=== PATIENT | female | born 1975 | race Caucasian/White ===

== ENCOUNTER 2017-04-17 14:20 | Emergency (ER) | payer OTHER ==
[~2017-04-17] VITALS: Ht 172.7 cm; Wt 136.1 kg
[~2017-04-17 14:20] MED LIST: ABILIFY5 MG; ANTIVERT25 MG PO; AUGMENTIN 875-1 EACH PO; CEPHALEXIN500 MG PO; CIPRO500 MG PO; CLONIDINE HCL0.2 MG PO; CLONIDINE1 EAC2 TD; FIORINAL 50-321 EACH PO; IBUPROFEN600 MG PO; INDOMETHACIN50 MG PO; LEVAQUIN750 MG PO; MIRALAX17 GM PO; NORCO 5-325 TA1 EACH PO; OMEPRAZOLE20 MG PO; PHENTERMINE HCL30 MG PO; PROTONIX40 MG PO; ROBITUSSIN COU1 EACH PO; VERAPAMIL HCL120 MG PO; ZESTORETIC 20-251 EA PO
--- NOTE | 2017-04-17 22:36 | EKG ---
[facility] [address] [place] [address] Signed Normal sinus rhythm T wave abnormality, consider inferior ischemia Abnormal ECG When compared with ECG of 27-NOV-2016 15:00, Nonspecific T wave abnormality has replaced inverted T waves in Lateral leads Confirmed by ZACKERY MOREAU MD ([id number]) on 04/17/2017 10:36:40 PM Electronically Signed By: ZACKERY MOREAU MD 04/17/17 2236 PATIENT NAME: MONICA TUCKER Electrocardiogram DATE OF : 71 PHYSICIAN: ZACKERY MOREAU MD REPORT #: [id number] REPORT IS CONFIDENTIAL AND NOT TO BE RELEASED WITHOUT AUTHORIZATION
== END 2017-04-17 17:38 | disposition home or self-care (01) ==
LOC: ED 14:20
DX: R07.89 Other chest pain (principal); I10 Essential (primary) hypertension; E66.9 Obesity, unspecified; Z79.899 Other long term (current) drug therapy
CPT/HCPCS: 71020; 80053; 84484; 85025; 85610; 85730; 93005; 93010; 99284

== ENCOUNTER 2017-08-02 16:02 | Emergency (ER) | payer OTHER ==
[~2017-08-02] VITALS: Ht 172.7 cm; Wt 136.1 kg
[2017-08-02] MEDS ORDERED: METFORMIN HCL1000 MG PO (16:26)
[2017-08-02] MEDS ORDERED: LANTUS100 UNITS/ SUB-Q (16:27)
== END 2017-08-02 18:18 | disposition home or self-care (01) ==
LOC: ED 16:02
DX: R10.9 Unspecified abdominal pain (principal); R10.811 Right upper quadrant abdominal tenderness; R10.813 Right lower quadrant abdominal tenderness; I10 Essential (primary) hypertension; Z87.891 Personal history of nicotine dependence; Z79.899 Other long term (current) drug therapy; Z79.4 Long term (current) use of insulin
CPT/HCPCS: 80053; 81001; 83690; 85025; 96374; 96375; 99283; J1885; J2405; J7030

== ENCOUNTER 2017-08-29 11:59 | Emergency (ER) | payer OTHER ==
[~2017-08-29] VITALS: Ht 172.7 cm; Wt 140.2 kg
[~2017-08-29 11:59] MED LIST changes: +LANTUS100 UNITS/ SUB-Q; +METFORMIN HCL1000 MG PO
--- NOTE | 2017-08-29 15:12 | EKG ---
[facility] [address] [facility] [place] [address] Signed Normal sinus rhythm Nonspecific T wave abnormality Abnormal ECG When compared with ECG of 17-APR-2017 14:27, Nonspecific T wave abnormality, improved in Lateral leads Confirmed by JOSE E MCLEAN MD ([id number]) on 08/29/2017 3:12:09 PM Electronically Signed By: JOSE E MCLEAN MD 08/29/17 1512 PATIENT NAME: MONICA TUCKER Electrocardiogram DATE OF : [birth year] PHYSICIAN: JOSE E MCLEAN MD REPORT #: [id number] REPORT IS CONFIDENTIAL AND NOT TO BE RELEASED WITHOUT AUTHORIZATION
== END 2017-08-29 14:05 | disposition home or self-care (01) ==
LOC: ED 11:59
DX: R07.9 Chest pain, unspecified (principal); I10 Essential (primary) hypertension; I48.91 Unspecified atrial fibrillation; Z79.899 Other long term (current) drug therapy; Z79.84 Long term (current) use of oral hypoglycemic drugs; Z79.4 Long term (current) use of insulin
CPT/HCPCS: 80053; 84484; 85025; 93005; 93010; 99283

== ENCOUNTER 2019-02-17 22:00 | Emergency (ER) | payer OTHER ==
[~2019-02-17] VITALS: Ht 170.2 cm; Wt 111.1 kg
--- OUTSIDE RECORDS SUMMARY | ~2019-02-17 | XMS | Clinical Summary ---
Demographics + + + | Address | [address] | | | [place] [address] | + + + | Home Phone | | + + + | Preferred Language | Unknown | + + + | Marital Status | Single | + + + | Sikhism Affiliation | Unknown | + + + | Race | Unknown | + + + | Ethnic Group | Other Race | + + + Author + + + | Author | [facility] REVENUE LOC[facility] | + + + | Organization | NON REVENUE LOCATIONS | + + + | Address | Unknown | + + + | Phone | Unavailable | + + + Care Team Providers + +------+ + | Care Assembly Worker Name | Role | Phone | + +------+ + PP | Unavailable | + +------+ + Source Comments JEMMA is fully [facility] both [facility] and [facility] InPatient.[facility] Allergies No Known Allergies Medications + + + +---------+------+------+-------+ | Medication | Sig | Dispensed | Refills | Star | End | Statu | | | | | | t | Date | s | | | | | | Date | | | + + + +---------+------+------+-------+ | pioglitazone 15 mg | Take 1 tablet by | 30 | 1 | 04/0 | | Activ | | oral tablet | mouth once daily. | tablet | | 2/20 | | e | | | | | | 18 | | | + + + +---------+------+------+-------+ Active Problems Not on file Social History + +-------+ +--------+------+ | Tobacco Use | Types | Packs/Day | Years | Date | | | | | Used | | + +-------+ +--------+------+ | Never Assessed | | | | | + +-------+ +--------+------+ + + + | Sex Assigned at | Date Recorded | | | | + + + | Not on file | | + + + + + + + | Job Start Date | Occupation | Industry | + + + + | Not on file | Not on file | Not on file | + + + + + + + + | Travel History | Travel Start | Travel End | + + + + + + | No recent travel history available. | + + Plan of Treatment + + + + + | Health Maintenance | Due Date | Last Done | Comments | + + + + + | Influenza (Flu) | | | | | vaccination (Season | 9 | | | | Ended) | | | | + + + + + Results Not on filefrom Last 3 Months"
--- OUTSIDE RECORDS SUMMARY | ~2019-02-17 | XMS | Encounter Summary ---
Demographics + + + | Address | [address] | | | [place] [address] | + + + | Home Phone | | + + + | Preferred Language | Unknown | + + + | Marital Status | Unknown | + + + | Christianity Affiliation | Unknown | + + + | Race | Unknown | + + + | Ethnic Group | Unknown | + + + Author + + + | Author | [facility] | + + + | Organization | [facility] | + + + | Address | Unknown | + + + | Phone | Unavailable | + + + Support + + +---------+ + | Name | Relationship | Address | Phone | + + +---------+ + | Detailed,Message | ECON | Unknown | | + + +---------+ + Care Team Providers + +------+ + | Care Cafeteria Server Name | Role | Phone | + +------+ + | Jonah Villanueva DO | PCP | | + +------+ + Reason for Visit +--------+ + | Reason | Comments | +--------+ + | Other | Referral Notes & Testing from [facility] | +--------+ + Encounter Details +--------+ + + + + | Date | Type | Department | Care Team | Description | +--------+ + + + + | 02/12/ | Documentati | IVONNE Albrecht | Eyal, Kaitlin Ford MA | Other (Referral | | 2019 | on Only | [facility] | | Notes & Testing from | | | | [address] | | [facility]) | | | | [address] | | | | | | [place] [address] | | | | | | [phone] | | | +--------+ + + + + Social History + +-------+ +--------+ + | Tobacco Use | Types | Packs/Day | Years | Date | | | | | Used | | + +-------+ +--------+ + | Former Smoker | | 0.5 | 20 | Quit: 03/12/2015 | + +-------+ +--------+ + + + +---------+ + | Alcohol Use | Drinks/We | oz/Week | Comments | | | ek | | | + + +---------+ + | Yes | 1 | 0.6 | occ | | | Standard | | | | | drinks or | | | | | | | | | | equivalen | | | | | t | | | + + +---------+ + + + + | Sex Assigned at | Date Recorded | | | | + + + | Not on file | | + + + as of this encounter Plan of Treatment +--------+---------+ + + + | Date | Type | Specialty | Care Team | Description | +--------+---------+ + + + | 03/02/ | Office | Cardiology | Danae Deng | | | 2019 | Visit | | [address] | | | | | | [address] | | | | | | [place] [address] | | | | | | [phone] | | | | | | | | +--------+---------+ + + + as of this encounter Visit Diagnoses Not on filein this encounter"
--- OUTSIDE RECORDS SUMMARY | ~2019-02-17 | XMS | Clinical Summary ---
Demographics + + + | Address | [address] | | | [place] [address] | + + + | Home Phone | | + + + | Preferred Language | Unknown | + + + | Marital Status | Unknown | + + + | Bahai Affiliation | Unknown | + + + | Race | Unknown | + + + | Ethnic Group | Unknown | + + + Author + + + | Author | [facility] | + + + | Organization | [facility] | + + + | Address | Unknown | + + + | Phone | Unavailable | + + + Support + + +---------+ + | Name | Relationship | Address | Phone | + + +---------+ + | Detailed,Message | ECON | Unknown | | + + +---------+ + Care Team Providers + +------+ + | Care Enrichment Teacher Name | Role | Phone | + +------+ + | Jonah Villanueva DO | PP | | + +------+ + Allergies No Known Allergies Current Medications + + +-------+---------+------+------+-------+ | Prescription | Sig. | Disp. | Refills | Star | End | Statu | | | | | | t | Date | s | | | | | | Date | | | + + +-------+---------+------+------+-------+ | | Take 1 tablet by | | | | | Activ | | HYDROcodone-acetamin | mouth every 6 (six) | | | | | e | | ophen (NORCO) 5-325 | hours as needed for | | | | | | | MG per tablet | Pain. | | | | | | + + +-------+---------+------+------+-------+ | atorvastatin | Take 40 mg by mouth | | | | | Activ | | (LIPITOR) 40 MG | nightly. | | | | | e | | tablet | | | | | | | + + +-------+---------+------+------+-------+ | omeprazole | Take 40 mg by mouth | | | | | Activ | | (PRILOSEC) 40 MG | every morning before | | | | | e | | capsule | breakfast. | | | | | | + + +-------+---------+------+------+-------+ | | Take 1 tablet by | | | | | Activ | | lisinopril-hydrochlo | mouth daily. | | | | | e | | rothiazide | | | | | | | | (ZESTORETIC) 20-12.5 | | | | | | | | MG per tablet | | | | | | | + + +-------+---------+------+------+-------+ | pioglitazone | Take 15 mg by mouth | | | | | Activ | | (ACTOS) 15 MG tablet | daily. | | | | | e | + + +-------+---------+------+------+-------+ | verapamil (VERELAN | Take 240 mg by mouth | | | | | Activ | | PM) 240 MG 24 hr | nightly. | | | | | e | | capsule | | | | | | | + + +-------+---------+------+------+-------+ | metFORMIN | Take 1,000 mg by | | | | | Activ | | (GLUCOPHAGE) 500 MG | mouth daily with | | | | | e | | tablet | breakfast. | | | | | | + + +-------+---------+------+------+-------+ | aspirin 81 MG EC | Take 81 mg by mouth | | | | | Activ | | tablet | daily with | | | | | e | | | breakfast. | | | | | | + + +-------+---------+------+------+-------+ | Multiple | Take 1 tablet by | | | | | Activ | | Vitamins-Minerals | mouth daily. | | | | | e | | (MULTIVITAMIN WITH | | | | | | | | MINERALS) tablet | | | | | | | + + +-------+---------+------+------+-------+ | Cinnamon 500 MG | Take 500 mg by mouth | | | | | Activ | | capsule | daily. | | | | | e | + + +-------+---------+------+------+-------+ | insulin glargine | Inject 50 Units into | | | | | Activ | | (LANTUS) 100 UNIT/ML | the skin nightly. | | | | | e | | injection | | | | | | | + + +-------+---------+------+------+-------+ | cloNIDine | Place 1 patch onto | | | | | Activ | | (CATAPRES) 0.3 | the skin once a | | | | | e | | MG/24HR | week. | | | | | | + + +-------+---------+------+------+-------+ Active Problems + + + | Problem | Noted Date | + + + | Regular check-up | 03/12/2017 | + + + | Diabetes mellitus, type 2 | 12/29/2016 | + + + + + | Overview: Insulin requiring from the start | + + + +---+ | Hypertension | | + +---+ | Narcolepsy | | + +---+ | Morbid obesity (HCC) | | + +---+ | IBS (irritable bowel syndrome) | | + +---+ | Osteoarthritis, multiple sites | | + +---+ Encounters +--------+ + + + + | Date | Type | Specialty | Care Team | Description | +--------+ + + + + | 02/12/ | Documentati | | Kaitlin Birch MA | Other (Referral | | 2019 | on Only | | | Notes & Testing from | | | | | | [facility]) | +--------+ + + + + from Last 3 Months Family History + + +------+ + | Medical History | Relation | Name | Comments | + + +------+ + | Aneurysm | Father | | | + + +------+ + | Hypertension | Father | | | + + +------+ + | Stroke | Father | | several, starting in his 40s | + + +------+ + | Hypertension | Mother | | | + + +------+ + | Adrenal disorder | Son | | | + + +------+ + | Blindness | Son | | congenital | + + +------+ + | Mental retardation | Son | | | + + +------+ + | Seizures | Son | | | + + +------+ + | Asthma | Son | | | + + +------+ + + +------+ + + | Relation | Name | Status | Comments | + +------+ + + | Brother | | Alive | | + +------+ + + | Brother | | Alive | | + +------+ + + | Father | | | | | | | (Age | | | | | 66) | | + +------+ + + | Mother | | Alive | | + +------+ + + | Sister | | Alive | | + +------+ + + | Son | | Alive | | + +------+ + + | Son | | Alive | | + +------+ + + | Son | | Alive | | + +------+ + + Social History + +-------+ +--------+ [...] on file | | + + + Last Filed Vital Signs + + + + | Vital Sign | Reading | Time Taken | + + + + | Blood Pressure | 142/94 | 03/12/2017 3:12 PM PDT | + + + + | Pulse | 100 | 03/12/2017 3:08 PM PDT | + + + + | Temperature | - | - | + + + + | Respiratory Rate | - | - | + + + + | Oxygen Saturation | 94% | 03/12/2017 3:08 PM PDT | + + + + | Inhaled Oxygen | - | - | | Concentration | | | + + + + | Weight | 127 kg (280 lb) | 03/12/2017 3:08 PM PDT | + + + + | Height | 165.1 cm (5' 5") | 03/12/2017 3:08 PM PDT | + + + + | Body Mass Index | 46.59 | 03/12/2017 3:08 PM PDT | + + + + Plan of Treatment +--------+---------+ + + + | Date | Type | Specialty | Care Team | Description | +--------+---------+ + + + | 03/02/ | Office | | Danae Deng | | | 2019 | Visit | | [address] | | | | | | [address] | | | | | | [place] [address] | | | | | | [phone] | | | | | | | | +--------+---------+ + + + + + + + + | Health Maintenance | Due Date | Last Done | Comments | + + + + + | Diabetic Eye Exam | | | | | | 3 | | | + + + + + | Diabetic Foot Exam | | | | | | 3 | | | + + + + + | Hemoglobin A1c | | | | | | 3 | | | + + + + + | Microalbumin | | | | | Screening | 3 | | | + + + + + | Vaccine: | | | | | Dtap/Tdap/Td (1 - | 2 | | | | Tdap) | | | | + + + + + | Vaccine: | | | | | Pneumococcal 19-64 | 2 | | | | (PPSV23 only) Medium | | | | | Risk (1 of 1 - | | | | | PPSV23) | | | | + + + + + | Cervical Cancer | | | | | Screening (Pap) | 3 | | | + + + + + | Vaccine: Influenza | | | | | (Season Ended) | 9 | | | + + + + + Results Not on filefrom Last 3 Months Insurance + +--------+ +------+-------+---------+ | Payer | Benefi | Subscriber | Type | Phone | Address | | | t Plan | ID | | | | | | / | | | | | | | Group | | | | | + +--------+ +------+-------+---------+ | [facility] | PROVID | [id number] | PPO | | | | PLAN | ENCE | | | | | | | HEALTH | | | | | | | PLAN | | | | | + +--------+ +------+-------+---------+ + +--------+ +--------+ + + | Guarantor Name | Accoun | Relation to | Date | Phone | Billing Address | | | t Type | Patient | of | | | | | | | | | | + +--------+ +--------+ + + | MONICA DESAI | Person | Self [birth year] Home: | [address] | | | al/Fam | | 1975 | [phone] | [place] | | | [place] | | | [phone] | [phone] | + +--------+ +--------+ + +
--- OUTSIDE RECORDS SUMMARY | ~2019-02-17 | XMS | Clinical Summary ---
Demographics + + + | Address | [address] | | | [place] [address] | + + + | Home Phone | | + + + | Preferred Language | Unknown | + + + | Marital Status | Unknown | + + + | Mormon Affiliation | Unknown | + + + | Race | Unknown | + + + | Ethnic Group | Unknown | + + + Author + + + | Author | [facility] | + + + | Organization | [facility] | + + + | Address | Unknown | + + + | Phone | Unavailable | + + + Support + + +---------+ + | Name | Relationship | Address | Phone | + + +---------+ + | Detailed,Message | ECON | Unknown | | + + +---------+ + Care Team Providers + +------+ + | Care Culture Media Laboratory Assistant Name | Role | Phone | + [...] | | | | | [place] [address] | | | | | | [phone] | | | | | | | [...] | | | + +--------+ +------+-------+---------+ | [facility] | PROVID | [id number] | PPO | | | | PLAN [...] Self | [birth year] | Home: | [address] | | | al/Fam | | 1975 | [phone] | [place] | | | [place] | | | [phone] | [phone] | + +--------+ +--------+ + +
--- OUTSIDE RECORDS SUMMARY | ~2019-02-17 | XMS | Encounter Summary ---
Demographics + + + | Address | [address] | | | [place] [address] | + + + | Home Phone | | + + + | Preferred Language | Unknown | + + + | Marital Status | Single | + + + | Muslim Affiliation | Unknown | + + + | Race | Unknown | + + + | Ethnic Group | Other Race | + + + Author + + + | Author | [facility] | + + + | Organization | [facility] | + + + | Address | Unknown | + + + | Phone | Unavailable | + + + Care Team Providers + +------+ + | Care Team Psychologist Name | Role | Phone | + +------+ + PCP | Unavailable | + +------+ + Encounter Details +--------+ + + + + | Date | Type | Department | Care Team | Description | +--------+ + + + + | 07/08/ | Abstract | Digestive Health | Clinic, Surgery | | | 2017 | | [place] at [facility] [address] | | | | | | [address] | | | | | | Mailcode: [place] | | | | | | [facility] Health and | | | | | | [facility] [address] | | | | | | [place], [place] | | | | | | [address] | | | | | | [phone] | | | +--------+ + + + [...] recent travel history available. | + + documented as of this encounter Plan of Treatment Not on filedocumented as of this encounter Visit Diagnoses Not on filedocumented in this encounter"
--- OUTSIDE RECORDS SUMMARY | ~2019-02-17 | XMS | Clinical Summary ---
Demographics + + + | Address | [address] | | | [place] [address] | + + + | Home Phone | | + + + | Preferred Language | Unknown | + + + | Marital Status | Single | + + + | Pentecostal Affiliation | Unknown | + + + [...] Team Providers + +------+ + | Care Purchasing Assistant Name | Role | Phone | + +------+ + PP | Unavailable | + +------+ + Source Comments [facility] Allergies No Known Allergies Medications + + [...]
--- OUTSIDE RECORDS SUMMARY | ~2019-02-17 | XMS | Encounter Summary ---
Demographics + + + | Address | [address] | | | [place] [address] | + + + | Home Phone | | + + + | Preferred Language | Unknown | + + + | Marital Status | Single | + + + | Jewish Affiliation | Unknown | + + + | Race | Unknown | + + + | Ethnic Group | Other Race | + + + Author + + + | Author | [facility] | + + + | Organization | [facility] | + + + | Address | Unknown | + + + | Phone | Unavailable | + + + Care Team Providers + +------+ + | Care Casing Man Name | Role | Phone | + +------+ + PCP | Unavailable | + +------+ + Encounter Details +--------+ + + + + | Date | Type | Department | Care Team | Description | +--------+ + + + + | 12/30/ | Pharmacy | [facility] | | | | 2017 | Visit | Outpatient Pharmacy | | | | | | [address] | | | | | | [address] | | | | | | [place], [place] | | | | | | [address] | | | | | | [phone] | | | +--------+ + + + [...]
--- OUTSIDE RECORDS SUMMARY | ~2019-02-17 | XMS | Clinical Summary ---
Demographics + + + | Address | [address] | | | [place] [address] | + + + | Home Phone | | + + + | Preferred Language | Unknown | + + + | Marital Status | Single | + + + | Sikh Affiliation | Unknown | + + + | Race | Unknown | + + + | Ethnic Group | Unknown | + + + Author + + + | Author | [facility] | | | and [place] | + + + | Organization | [facility] | | | and [place] | + + + | Address | Unknown | + + + | Phone | Unavailable | + + + Support + + +---------+ + | Name | Relationship | Address | Phone | + + +---------+ + | RYNE TUCKER | ECON | Unknown | | + + +---------+ + | Detailed,Message | ECON | Unknown | | + + +---------+ + Care Team Providers + +------+ + | Care Media Traffic Manager Name | Role | Phone | + +------+ + PP | Unavailable | + +------+ + Allergies Not on File Medications Not on file Active Problems Not on file Social History [...]
--- OUTSIDE RECORDS SUMMARY | ~2019-02-17 | XMS | Encounter Summary ---
Demographics + + + | Address | [address] | | | [place] [address] | + + + | Home Phone | | + + + | Preferred Language | Unknown | + + + | Marital Status | Single | + + + | Mu-Ism Affiliation | Unknown | + + + | Race | Unknown | + + + | Ethnic Group | Other Race | + + + Author + + + | Author | [facility] | + + + | Organization | [facility] | + + + | Address | Unknown | + + + | Phone | Unavailable | + + + Care Team Providers + +------+ + | Care Senior Software Manager Name | Role | Phone | [...] [address] | | | | | | [place], [place] | | | | | | [address] | | | | | | [phone] | | | +--------+ + + + [...]
--- OUTSIDE RECORDS SUMMARY | ~2019-02-17 | XMS | Encounter Summary ---
Demographics + + + | Address | [address] | | | [place] [address] | + + + | Home Phone | | + + + | Preferred Language | Unknown | + + + | Marital Status | Unknown | + + + | Religion Affiliation | Unknown | + + + | Race | Unknown | + + + | Ethnic Group | Unknown | + + + Author + + + | Author | [facility] | + + + | Organization | [facility] | + + + | Address | Unknown | + + + | Phone | Unavailable | + + + Support + + +---------+ + | Name | Relationship | Address | Phone | + + +---------+ + | Detailed,Message | ECON | Unknown | | + + +---------+ + Care Team Providers + +------+ + | Care Building Cleaner Name | Role | Phone | + [...] | 2019 | on Only | [facility] [place] | | Notes & Testing from | | | | [address] | | Vera Foote) | | | | [address] | | | | | | [place] [address] | | | | | | [phone] | | | +--------+ + + + [...] | | | | | [place] [address] | | | | | | [phone] | | | | | | | | +--------+---------+ + + + as of this encounter Visit Diagnoses Not on filein this encounter"
--- OUTSIDE RECORDS SUMMARY | ~2019-02-17 | XMS | Encounter Summary ---
Demographics + + + | Address | [address] | | | [place] [address] | + + + | Home Phone | | + + + | Preferred Language | Unknown | + + + | Marital Status | Single | + + + | Anabaptist Affiliation | Unknown | + + + | Race | Unknown | + + + | Ethnic Group | Other Race | + + + Author + + + | Author | [facility] | + + + | Organization | [facility] | + + + | Address | Unknown | + + + | Phone | Unavailable | + + + Care Team Providers + +------+ + | Care Meat Team Member Name | Role | Phone | + +------+ + PCP | Unavailable | + +------+ + Encounter Details +--------+ + + + + | Date | Type | Department | Care Team | Description | +--------+ + + + + | 07/08/ | Abstract | Digestive Health | Clinic, Surgery | | | 2017 | | [place] at [facility] [address] | | | | | | [address] | | | | | | Mailcode: [place] | | | | | | [facility] Health and | | | | | | [facility], [facility] [address] | | | | | | [place], [place] | | | | | | [address] | | | | | | [phone] | | | +--------+ + + + [...]
--- OUTSIDE RECORDS SUMMARY | ~2019-02-17 | XMS | Clinical Summary ---
Demographics + + + | Address | [address] | | | [place] [address] | + + + | Home Phone | | + + + | Preferred Language | Unknown | + + + | Marital Status | Single | + + + | Buddhist Affiliation | Unknown | + + + | Race | Unknown | + + + | Ethnic Group | Unknown | + + + Author + + + | Author | [facility] | | | and [place] | + + + | Organization | [facility] | | | and [place] | [...] Team Providers + +------+ + | Care Feather Stitcher Name | Role | Phone | + [...]
[2019-02-17] MEDS ORDERED: ATORVASTATIN CA40 MG PO (22:15)
[2019-02-17] MEDS ORDERED: VICTOZA 3-0.6 MG/0.1 SUB-Q (22:16)
--- NOTE | 2019-02-18 16:52 | EKG ---
[facility] [address] [place] [address] Signed Normal sinus rhythm Moderate voltage criteria for LVH, may be normal variant Nonspecific T wave abnormality Abnormal ECG When compared with ECG of 29-AUG-2017 12:10, Nonspecific T wave abnormality now evident in Anterior leads Confirmed by JOSE E MCLEAN MD ([id number]) on 02/18/2019 4:52:31 PM Electronically Signed By: JOSE E MCLEAN MD 02/18/19 1652 PATIENT NAME: MONICA TUCKER Electrocardiogram DATE OF : 71 PHYSICIAN: JOSE E MCLEAN MD REPORT #: [id number] REPORT IS CONFIDENTIAL AND NOT TO BE RELEASED WITHOUT AUTHORIZATION
== END 2019-02-18 00:12 | disposition home or self-care (01) ==
LOC: ED 22:00
DX: R42 Dizziness and giddiness (principal); I10 Essential (primary) hypertension; E66.9 Obesity, unspecified; E11.9 Type 2 diabetes mellitus without complications; Z79.84 Long term (current) use of oral hypoglycemic drugs; Z79.899 Other long term (current) drug therapy
CPT/HCPCS: 80053; 83735; 84443; 84484; 85025; 93005; 93010; 96360; 99284-25; J7030

== ENCOUNTER 2020-05-30 23:06 | Emergency (ER) | payer OTHER ==
[~2020-05-30] VITALS: Ht 170.2 cm; Wt 127.0 kg
--- OUTSIDE RECORDS SUMMARY | ~2020-05-30 | XMS | Encounter Summary ---
Demographics + + + | Address | [address] | | | [place] [address] | + + + | Home Phone | | + + + | Preferred Language | Unknown | + + + | Marital Status | Single | + + + | Synagogue Affiliation | Unknown | + + + | Race | Unknown | + + + | Ethnic Group | Other Race | + + + Author + + + | Author | [facility] | + + + | Organization | [facility] | + + + | Address | Unknown | + + + | Phone | Unavailable | + + + Care Team Providers + +------+ + | Care Tax Record Clerk Name | Role | Phone | + +------+ + PCP | Unavailable | + +------+ + Encounter Details +--------+ + + + + | Date | Type | Department | Care Team | Description | +--------+ + + + + | 07/08/ | Abstract | Digestive Health | Clinic, Surgery | | | 2017 | | [place] [address] [address] | | | | | | [facility] | | | | | | for Health and | | | | | | Healing, [address] | | | | | | [place], [place] | | | | | | [address] | | | | | | [phone] | | | +--------+ + + + + Social History + +-------+ +--------+------+ | Tobacco [...] on file | | + + + documented as of this encounter Plan of Treatment Not on filedocumented as of this encounter Visit Diagnoses Not on filedocumented in this encounter"
--- OUTSIDE RECORDS SUMMARY | ~2020-05-30 | XMS | Encounter Summary ---
Demographics + + + | Address | [address] | | | [place] [address] | + + + | Home Phone | | + + + | Preferred Language | Unknown | + + + | Marital Status | Single | + + + | Latter Day Affiliation | Unknown | + + + | Race | Unknown | + + + | Ethnic Group | Other Race | + + + Author + + + | Author | [facility] | + + + | Organization | [facility] | + + + | Address | Unknown | + + + | Phone | Unavailable | + + + Care Team Providers + +------+ + | Care College Scouting Coordinator Name | Role | Phone | + +------+ + PCP | Unavailable | + +------+ + Encounter Details +--------+ + + + + | Date | Type | Department | Care Team | Description | +--------+ + + + + | 12/30/ | Pharmacy | [facility] | | | | 2017 | Visit | Outpatient Pharmacy | | | | | | [address] | | | | | | [place], [place] | | | | | | [address] | | | | | | [phone] | | | +--------+ + + + [...]
--- OUTSIDE RECORDS SUMMARY | ~2020-05-30 | XMS | Encounter Summary ---
Demographics + + + | Address | [address] | | | [place] [address] | + + + | Home Phone | | + + + | Preferred Language | Unknown | + + + | Marital Status | Single | + + + | Confucianism Affiliation | Unknown | + + + | Race | White | + + + | Ethnic Group | Not or | + + + Author + + + | Author | [facility] | | | and [place] | + + + | Organization | [facility] | | | and [place] | + + + | Address | Unknown | + + + | Phone | Unavailable | + + + Support + + +---------+ + | Name | Relationship | Address | Phone | + + +---------+ + | Lauren Desai | ECON | Unknown | | + + +---------+ + | No None | ECON | Unknown | | + + +---------+ + Care Team Providers + +------+ + | Care Dental Hygienist Name | Role | Phone | + +------+ + | Vera Foote | PCP | | + +------+ + Reason for Visit + + + | Reason | Comments | + + + | Medication Refill | | + + + Encounter Details +--------+--------+ + + + | Date | Type | Department | Care Team | Description | +--------+--------+ + + + | 05/12/ | Refill | [facility] | Danae Deng | Medication Refill | | 2020 | | CARDIOLOGY [place] | [address] | | | | | [address] [facility] | [address] | | | | | [address] | [place] [address] | | | | | [place] | [phone] | | | | | [address] | | | | | | [phone] | | | +--------+--------+ + + + Social History + +-------+ +--------+------+ | Tobacco Use | Types | Packs/Day | Years | Date | | | | | Used | | + +-------+ +--------+------+ | Former Smoker | | 0.5 | | | + +-------+ +--------+------+ + + + | Sex Assigned at | Date Recorded | | | | + + + | Not on file | | + + + documented as of this encounter Plan of Treatment Not on filedocumented as of this encounter Visit Diagnoses Not on filedocumented in this encounter"
--- OUTSIDE RECORDS SUMMARY | ~2020-05-30 | XMS | Encounter Summary ---
Demographics + + + | Address | [address] | | | [place] [address] | + + + | Home Phone | | + + + | Preferred Language | Unknown | + + + | Marital Status | Single | + + + | Mandaen Affiliation | Unknown | + + + | Race | White | + + + | Ethnic Group | Not or | + + + Author + + + | Author | [facility] | | | and [place] | + + + | Organization | [facility] | | | and [...] Team Providers + +------+ + | Care Window Machine Operator Name | Role | Phone | + +------+ + | Vera Foote | PCP | | + +------+ + Encounter Details +--------+ + + + + | Date | Type | Department | Care Team | Description | +--------+ + + + + | 05/07/ | Orders Only | [facility] | Danae Deng | Mixed | | 2019 | | CARDIOLOGY [place] | [address] | hyperlipidemia; | | | | [address] | [address] | Essential (primary) | | | | [address] | [place] [address] | hypertension; Type 2 | | | | [place] | [phone] | diabetes mellitus | | | | [address] | | without | | | | [phone] | | complications (HCC) | +--------+ + + + + Social [...] as of this encounter Plan of Treatment + +------+--------+ + + | Name | Type | Priori | Associated Diagnoses | Order Schedule | | | | ty | | | + +------+--------+ + + | Comprehensive | Lab | Routin | Mixed | Expected: | | Metabolic Panel | | e | hyperlipidemia | 03/02/2019, Expires: | | | | | Essential (primary) | 03/02/2020 | | | | | hypertension Type 2 | | | | | | diabetes mellitus | | | | | | without | | | | | | complications (HCC) | | + +------+--------+ + + | Lipid Panel | Lab | Routin | Mixed | Expected: | | | | e | hyperlipidemia Type | 03/02/2019, Expires: | | | | | 2 diabetes mellitus | 03/02/2020 | | | | | without | | | | | | complications (HCC) | | + +------+--------+ + + documented as of this encounter Visit Diagnoses + + | Diagnosis | + + | Mixed hyperlipidemia | + + | Essential (primary) hypertension Unspecified essential hypertension | + + | Type 2 diabetes mellitus without complications (HCC) Type II or unspecified type | | diabetes mellitus without mention of complication, not stated as uncontrolled | + + documented in this encounter"
--- OUTSIDE RECORDS SUMMARY | ~2020-05-30 | XMS | Clinical Summary ---
Demographics + + + | Address | [address] | | | [place] [address] | + + + | Home Phone | | + + + | Preferred Language | Unknown | + + + | Marital Status | Single | + + + | Samaritan Affiliation | Unknown | + + + [...] Team Providers + +------+ + | Care Risk Control Officer Name | Role | Phone | + +------+ + PCP | Unavailable | + +------+ + Source Comments [facility]EM[facility] is fully live [facility] and [facility] InPatient.[facility] Allergies No Known Allergies Medications + + [...] + + + Last Filed Vital Signs Not on file Plan of Treatment + + +-------+ + | Health Maintenance | Due Date | Last | Comments | | | | Done | | + + +-------+ + | Influenza (Flu) | | | | | vaccination (#1) | 9 | | | + + +-------+ + | Pneumococcal | Aged Out | | No longer eligible based on patient's age | | vaccination | | | to complete this topic | + + +-------+ + Results Not on filefrom Last 3 Months"
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
--- OUTSIDE RECORDS SUMMARY | ~2020-05-30 | XMS | Encounter Summary ---
Demographics + + + | Address | [address] | | | [place] [address] | + + + | Home Phone | | + + + | Preferred Language | Unknown | + + + | Marital Status | Single | + + + | Uatsdin Affiliation | Unknown | + + + | Race | White | + + + | Ethnic Group | Not or | + + + Author + + + | Author | [facility] | | | and [place] | + + + | Organization | [facility] | | | [...] Team Providers + +------+ + | Care Cafe Manager Name | Role | Phone | + +------+ + | Vera Foote | PCP | | + +------+ + Encounter Details +--------+ + + + + | Date | Type | Department | Care Team | Description | +--------+ + + + + | 03/02/ | Orders Only | [facility] | Conversion | | | 2019 | | CONVERSION [address]P [address] | Transaction, | | | | | [address] | Provider Unknown | | | | | [place], [place] | [phone] | | | | | [address] | | | | | | [phone] | | | +--------+ + + + [...]
--- OUTSIDE RECORDS SUMMARY | ~2020-05-30 | XMS | Encounter Summary ---
Demographics + + + | Address | [address] | | | [place] [address] | + + + | Home Phone | | + + + | Preferred Language | Unknown | + + + | Marital Status | Single | + + + | Rastafari Affiliation | Unknown | + + + | Race | White | + + + | Ethnic Group | Not or | + + + Author + + + | Author | [facility] | | | and [place] | + + + | Organization | [facility] | | | and [...] Team Providers + +------+ + | Care Public Health Educator Name | Role | Phone | + +------+ + | Vera Foote | PCP | | + +------+ + Encounter Details +--------+ + + + + | Date | Type | Department | Care Team | Description | +--------+ + + + + | 03/12/ | Orders Only | [facility] | Conversion | | | 2017 | | CONVERSION [address] | Transaction, | | | | | [address] | Provider Unknown | | | | | [place], [place] | [phone] | | | | | [address] | | | | | | [phone] | | | +--------+ + + + [...]
--- OUTSIDE RECORDS SUMMARY | ~2020-05-30 | XMS | Encounter Summary ---
Demographics + + + | Address | [address] | | | [place] [address] | + + + | Home Phone | | + + + | Preferred Language | Unknown | + + + | Marital Status | Single | + + + | Church Affiliation | Unknown | + + + | Race | White | + + + | Ethnic Group | Not or | + + + Author + + + | Author | [facility] | | | and [place] | + + + | Organization | [facility] | | | and [...] Team Providers + +------+ + | Care Production Coordinator Name | Role | Phone | + +------+ + | Vera Foote | PCP | | + +------+ + Encounter Details +--------+ + + + + | Date | Type | Department | Care Team | Description | +--------+ + + + + | 04/17/ | Orders Only | [facility] | Joceline Galindo, | | | 2016 | | [address] | MD [address] | | | | | [address] | [place], | | | | | [place], [place] | [place] [address] | | | | | [address] | [phone] | | | | | [phone] | | | +--------+ + + + [...] Not on filedocumented as of this encounter Procedures + +--------+ + + + | Procedure Name | Priori | Date/Time | Associated Diagnosis | Comments | | | ty | | | | + +--------+ + + + | ECHO INTERPRETATION | Routin | 04/17/2017 | | Results for this | | OF OUTSIDE FILMS | e | 2:28 PM | | procedure are in the | | | | PDT | | results section. | + +--------+ + + + documented in this encounter Results ECHO Interpretation of Outside Films (04/17/2017 2:28 PM PDT) + + | Specimen | + + | | + + + + + | Impressions | Performed At | + + + | 1. This was a technically difficult, but interpretable, study with | | | suboptimal parasternal views. 2. Left ventricular systolic function | | | is hyperdynamic with an estimated EF of >70%. 3. The diastolic | | | filling pattern indicates impaired relaxation consistent with mild | | | dysfunction (Grade I). 4. The right ventricle is normal in size and | | | function. 5. The ascending aorta is mildly dilated (aneurysmal), | | | measuring 4.3cm. 6. No significant valvular abnormalities are noted. | | + + + + + + | Narrative | Performed At | + + + | Patient Name: Vickie Desai Date of : 1975 | | | Performing Physician: JOCELINE GALINDO MD | | | | | | INDICATIONS SOB CONCLUSIONS 1. This | | | was a technically difficult, but interpretable, study with suboptimal | | | parasternal views. 2. Left ventricular systolic function is | | | hyperdynamic with an estimated EF of >70%. 3. The diastolic filling | | | pattern indicates impaired relaxation consistent with mild dysfunction | | | (Grade I). 4. The right ventricle is normal in size and function. | | | 5. The ascending aorta is mildly dilated (aneurysmal), measuring | | | 4.3cm. 6. No significant valvular abnormalities are noted. | | | FINDINGS -------- ECG rhythm: Sinus rhythm. Study: A 2-dimensional | | | transthoracic echocardiogram with m-mode, spectral and color flow | | | Doppler was perfomed at [facility]. Study: This was a | | | technically difficult study with suboptimal parasternal views. Left | | | Ventricle: Left ventricular systolic function is hyperdynamic with an | | | estimated EF of >70%. Left Ventricle: The left ventricle cavity size | | | is normal. Left Ventricle: Left ventricular wall thickness is normal. | | | Left Ventricle: Mild asymmetric septal hypertrophy with septal | | | thickness 13 - 15 mm. Left Ventricle: The diastolic filling pattern | | | indicates impaired relaxation consistent with mild dysfunction (Grade | | | I). Right Ventricle: The right ventricle is normal in size and | | | function. Left Atrium: The left atrium is normal in size. Right | | | Atrium: The right atrium is normal in size. Aortic Valve: The aortic | | | valve is not well visualized, but on limited views appears to be | | | trileaflet and structurally normal. Aortic Valve: The aortic | | | commissures have mild focal calcifications. Aortic Valve: There is no | | | evidence of aortic stenosis or regurgitation. Mitral Valve: Normal | | | appearing mitral valve. Mitral Valve: There is trace mitral | | | regurgitation. Tricuspid Valve: The tricuspid valve appears | | | structurally normal. Tricuspid Valve: Trace tricuspid regurgitation | | | present. Tricuspid Valve: Pulmonary artery systolic pressure could | | | not be assessed due to the absence of adequate TR jet. Pulmonic | | | Valve: Pulmonic valve appears structurally normal. Pericardium: There | | | is no pericardial effusion. IVC/Hepatic Veins: The IVC was not well | | | visualized. Aorta: The ascending aorta is mildly dilated, measuring | | | 4.3cm. Mass: No mass visualized Thrombus: No clot visualized | | | Thrombus: No vegetation visualized. Septum: No ASD observed. Septum: | | | No VSD observed. MEASUREMENTS RA Area: 15.40 | | | cm2 Ao asc: 4.28 cm EDV(Teich): 142.84 ml IVSd: 1.35 cm | | | LVIDd: 5.42 cm LVPWd: 1.08 cm LVOT Area: 3.32 cm2 LVOT | | | Diam: 2.05 cm %FS: 15.78 % EF(Teich): 32.93 % ESV(Teich): | | | 95.79 ml LVIDs: 4.56 cm SV(Teich): 47.04 ml RVIDd: 2.46 | | | cm LVEF MOD A2C: 67.36 % SV MOD A2C: 67.68 ml LVEF MOD A4C: | | | 73.20 % SV MOD A4C: 91.34 ml EF Biplane: 71.32 % LVEDV MOD | | | BP: 115.71 ml LVESV MOD BP: 33.18 ml LVEDV MOD A2C: 100.47 | | | ml LVLd A2C: 7.96 cm LVEDV MOD A4C: 124.77 ml LVLd A4C: | | | 8.52 cm LVESV MOD A2C: 32.78 ml LVLs A2C: 6.69 cm LVESV MOD | | | A4C: 33.43 ml LVLs A4C: 6.86 cm LAESV(A-L): 56.51 ml LAESV | | | Index (A-L): 23.74 ml/m2 LAAs A2C: 17.46 cm2 LAESV A-L A2C: | | | 47.96 ml LALs A2C: 5.39 cm LAAs A4C: 20.57 cm2 LAESV A-L | | | A4C: 64.94 ml LALs A4C: 5.53 cm AV maxP.85 mmHg AV | | | meanP.33 mmHg AV Vmax: 2.39 m/s AV Vmean: 1.62 m/s AV | | | VTI: 38.34 cm MARY KAY Vmax: 1.89 cm2 MARY KAY (VTI): 2.15 cm2 AVAI | | | (Vmax): 0.00 cm2/m2 AVAI (VTI): 0.00 cm2/m2 LVOT maxPG: | | | 7.40 mmHg LVOT meanP.82 mmHg LVSI Dopp: 34.72 ml/m2 LVSV | | | Dopp: 82.64 ml LVOT Vmax: 1.36 m/s LVOT Vmean: 1.03 m/s | | | LVOT VTI: 24.85 cm MV A Palomo: 0.81 m/s MV DecT: 248.39 ms | | | MV E Palomo: 0.89 m/s MV E/A Ratio: 1.09 MV PHT: 72.03 ms MVA | | | By PHT: 3.05 cm2 Septal e': 0.05 m/s Septal E/e': 16.09 | | | Lateral e': 0.12 m/s Lateral E/e': 7.25 PV maxP.67 mmHg | | | PV Vmax: 1.29 m/s Mineral Surveyor: MARIZOL Authenticated by: | | | JOCELINE GALINDO MD Report Date/Time: 04-18-2017 09:18:59 | | + + + + + | Procedure Note | + + | Prabhakar Roy Conversion - 05/21/2019 8:04 PM PDT Patient Name: Florin Desai of | | : 1975 Performing Physician: JOCELINE GALINDO, | | MD INDICATIONS S | | OB CONCLUSIONS 1. This was a technically difficult, but interpretable, study | | with suboptimal parasternal views.2. Left ventricular systolic function is hyperdynamic | | with an estimated EF of >70%.3. The diastolic filling pattern indicates impaired | | relaxation consistent with mild dysfunction (Grade I).4. The right ventricle is normal | | in size and function.5. The ascending aorta is mildly dilated (aneurysmal), measuring | | 4.3cm. 6. No significant valvular abnormalities are noted. FINDINGS--------ECG rhythm: | | Sinus rhythm.Study: A 2-dimensional transthoracic echocardiogram with m-mode, spectral | | and color flow Doppler was perfomed at [facility].Study: This was a | | technically difficult study with suboptimal parasternal views.Left Ventricle: Left | | ventricular systolic function is hyperdynamic with an estimated EF of >70%.Left | | Ventricle: The left ventricle cavity size is normal.Left Ventricle: Left ventricular | | wall thickness is normal.Left Ventricle: Mild asymmetric septal hypertrophy with septal | | thickness 13 - 15 mm.Left Ventricle: The diastolic filling pattern indicates impaired | | relaxation consistent with mild dysfunction (Grade I).Right Ventricle: The right | | ventricle is normal in size and function.Left Atrium: The left atrium is normal in | | size.Right Atrium: The right atrium is normal in size.Aortic Valve: The aortic valve is | | not well visualized, but on limited views appears to be trileaflet and structurally | | normal.Aortic Valve: The aortic commissures have mild focal calcifications.Aortic Valve: | | There is no evidence of aortic stenosis or regurgitation.Mitral Valve: Normal appearing | | mitral valve.Mitral Valve: There is trace mitral regurgitation.Tricuspid Valve: The | | tricuspid valve appears structurally normal.Tricuspid Valve: Trace tricuspid | | regurgitation present.Tricuspid Valve: Pulmonary artery systolic pressure could not be | | assessed due to the absence of adequate TR jet.Pulmonic Valve: Pulmonic valve appears | | structurally normal.Pericardium: There is no pericardial effusion.IVC/Hepatic Veins: The | | IVC was not well visualized.Aorta: The ascending aorta is mildly dilated, measuring | | 4.3cm.Mass: No mass visualizedThrombus: No clot visualizedThrombus: No vegetation | | visualized.Septum: No ASD observed.Septum: No VSD observed. MEASUREMENTS RA | | Area: 15.40 cm2Ao asc: 4.28 cmEDV(Teich): 142.84 mlIVSd: 1.35 cmLVIDd: 5.42 | | cmLVPWd: 1.08 cmLVOT Area: 3.32 [id number] Diam: 2.05 cm%FS: 15.78 %EF(Teich): | | 32.93 %ESV(Teich): 95.79 mlLVIDs: 4.56 cmSV(Teich): 47.04 mlRVIDd: 2.46 cmLVEF | | MOD A2C: 67.36 %SV MOD A2C: 67.68 mlLVEF MOD A4C: 73.20 %SV MOD A4C: 91.34 mlEF | | Biplane: 71.32 %LVEDV MOD BP: 115.71 mlLVESV MOD BP: 33.18 mlLVEDV MOD A2C: | | 100.47 mlLVLd A2C: 7.96 cmLVEDV MOD A4C: 124.77 mlLVLd A4C: 8.52 cmLVESV MOD A2C: | | 32.78 mlLVLs A2C: 6.69 cmLVESV MOD A4C: 33.43 mlLVLs A4C: 6.86 cmLAESV(A-L): | | 56.51 mlLAESV Index (A-L): 23.74 ml/m2LAAs A2C: 17.46 [id number] A-L A2C: 47.96 | | mlLALs A2C: 5.39 cmLAAs A4C: 20.57 [id number] A-L A4C: 64.94 mlLALs A4C: 5.53 cmAV | | maxP.85 mmHgAV meanP.33 mmHgAV Vmax: 2.39 m/Gerry Vmean: 1.62 m/Gerry | | VTI: 38.34 cmAVA Vmax: 1.89 cm2AVA (VTI): 2.15 [id number] (Vmax): 0.00 cm2/m2AVAI | | (VTI): 0.00 cm2/m2LVOT maxP.40 mmHgLVOT meanP.82 mmHgLVSI Dopp: 34.72 | | ml/m2LVSV Dopp: 82.64 mlLVOT Vmax: 1.36 m/sLVOT Vmean: 1.03 m/sLVOT VTI: 24.85 | | cmMV A Palomo: 0.81 m/sMV DecT: 248.39 msMV E Palomo: 0.89 m/sMV E/A Ratio: 1.09MV | | PHT: 72.03 msMVA By PHT: 3.05 [id number] e': 0.05 m/sSeptal E/e': 16.09Lateral | | e': 0.12 m/sLateral E/e': 7.25PV maxP.67 mmHgPV Vmax: 1.29 m/s Mineral Surveyor: | | DHAuthenticated by: THEO KLINEeport Date/Time: 04-18-2017 09:18:59 IMPRESSION: | | 1. This was a technically difficult, but interpretable, study with suboptimal | | parasternal views.2. Left ventricular systolic function is hyperdynamic with an | | estimated EF of >70%.3. The diastolic filling pattern indicates impaired relaxation | | consistent with mild dysfunction (Grade I).4. The right ventricle is normal in size and | | function.5. The ascending aorta is mildly dilated (aneurysmal), measuring 4.3cm. 6. No | | significant valvular abnormalities are noted. | |RA Area: 15.40 cm2 | |Ao asc: 4.28 cm | |EDV(Teich): 142.84 ml | |IVSd: 1.35 cm | |LVIDd: 5.42 cm | |LVPWd: 1.08 cm | |LVOT Area: 3.32 cm2 | |LVOT Diam: 2.05 cm | |%FS: 15.78 % | |EF(Teich): 32.93 % | |ESV(Teich): 95.79 ml | |LVIDs: 4.56 cm | |SV(Teich): 47.04 ml | |RVIDd: 2.46 cm | |LVEF MOD A2C: 67.36 % | |SV MOD A2C: 67.68 ml | |LVEF MOD A4C: 73.20 % | |SV MOD A4C: 91.34 ml | |EF Biplane: 71.32 % | |LVEDV MOD BP: 115.71 ml | |LVESV MOD BP: 33.18 ml | |LVEDV MOD A2C: 100.47 ml | |LVLd A2C: 7.96 cm | |LVEDV MOD A4C: 124.77 ml | |LVLd A4C: 8.52 cm | |LVESV MOD A2C: 32.78 ml | |LVLs A2C: 6.69 cm | |LVESV MOD A4C: 33.43 ml | |LVLs A4C: 6.86 cm | |LAESV(A-L): 56.51 ml | |LAESV Index (A-L): 23.74 ml/m2 | |LAAs A2C: 17.46 cm2 | |LAESV A-L A2C: 47.96 ml | |LALs A2C: 5.39 cm | |LAAs A4C: 20.57 cm2 | |LAESV A-L A4C: 64.94 ml | |LALs A4C: 5.53 cm | |AV maxP.85 mmHg | |AV meanP.33 mmHg | |AV Vmax: 2.39 m/s | |AV Vmean: 1.62 m/s | |AV VTI: 38.34 cm | |MARY KAY Vmax: 1.89 cm2 | |MARY KAY (VTI): 2.15 cm2 | |AVAI (Vmax): 0.00 cm2/m2 | |AVAI (VTI): 0.00 cm2/m2 | |LVOT maxP.40 mmHg | |LVOT meanP.82 mmHg | |LVSI Dopp: 34.72 ml/m2 | |LVSV Dopp: 82.64 ml | |LVOT Vmax: 1.36 m/s | |LVOT Vmean: 1.03 m/s | |LVOT VTI: 24.85 cm | |MV A Palomo: 0.81 m/s | |MV DecT: 248.39 ms | |MV E Palomo: 0.89 m/s | |MV E/A Ratio: 1.09 | |MV PHT: 72.03 ms | |MVA By PHT: 3.05 cm2 | |Septal e': 0.05 m/s | |Septal E/e': 16.09 | |Lateral e': 0.12 m/s | |Lateral E/e': 7.25 | |PV maxP.67 mmHg | |PV Vmax: 1.29 m/s | | | |Mineral Surveyor: | |Authenticated by: JOCELINE GALINDO MD | |Report Date/Time: 04-18-2017 09:18:59 | | | |IMPRESSION: | |1. This was a technically difficult, but interpretable, study with suboptimal parasternal v iews. | |2. Left ventricular systolic function is hyperdynamic with an estimated EF of >70%. | |3. The diastolic filling pattern indicates impaired relaxation consistent with mild dysfunc tion (Grade I). | |4. The right ventricle is normal in size and function. | |5. The ascending aorta is mildly dilated (aneurysmal), measuring 4.3cm. 6. No significant v alvular abnormalities are noted. | + + documented in this encounter Visit Diagnoses Not on filedocumented in this encounter"
--- OUTSIDE RECORDS SUMMARY | ~2020-05-30 | XMS | Clinical Summary ---
Demographics + + + | Address | [address] | | | [place] [address] | + + + | Home Phone | | + + + | Preferred Language | Unknown | + + + | Marital Status | Single | + + + | Faith Affiliation | Unknown | + + + | Race | White | + + + | Ethnic Group | Not or | + + + Author + + + | Author | [facility] | | | and [place] | + + + | Organization | [facility] | | | and [place] | + + + | Address | Unknown | + + + | Phone | Unavailable | + + + Support + + +---------+ + | Name | Relationship | Address | Phone | + + +---------+ + | Lauren Dick Desai | ECON | Unknown | | + + +---------+ + | No None | ECON | Unknown | | + + +---------+ + Care Team Providers + +------+ + | Care Technical Services Manager Name | Role | Phone | + +------+ + | Vera Foote | PCP | | + +------+ + Allergies No Known Allergies Medications + + + +---------+------+------+-------+ | Medication | Sig | Dispensed | Refills | Star | End | Statu | | | | | | t | Date | s | | | | | | Date | | | + + + +---------+------+------+-------+ | Flaxseed, Linseed, | Take 1 capsule by | | 0 | 06/0 | | Activ | | (FLAX SEED OIL PO) | mouth. | | | 3/20 | | e | | | | | | 19 | | | + + + +---------+------+------+-------+ | Methenamine-Sodium | Take 1 tablet by | | 0 | 08/0 | | Activ | | Salicylate (CYSTEX | mouth daily. | | | 8/20 | | e | | PO) | | | | 19 | | | + + + +---------+------+------+-------+ | NALTREXONE HCL PO | Take 4.5 mg by | | 0 | 08/0 | | Activ | | | mouth. | | | 8/20 | | e | | | | | | 19 | | | + + + +---------+------+------+-------+ | atorvaSTATin | Take 40 mg by mouth | | 0 | 06/1 | | Activ | | (LIPITOR) 40 mg | nightly. | | | 3/20 | | e | | tablet | | | | 17 | | | + + + +---------+------+------+-------+ | omeprazole | Take 40 mg by mouth | | 0 | 06/1 | | Activ | | (PRILOSEC) 40 MG | every morning before | | | 3/20 | | e | | capsule | breakfast. | | | 17 | | | + + + +---------+------+------+-------+ | pioglitazone | Take 15 mg by mouth | | 0 | 06/1 | | Activ | | (ACTOS) 15 mg tablet | daily. | | | 3/20 | | e | | | | | | 17 | | | + + + +---------+------+------+-------+ | verapamil | Take 120 mg by mouth | | 0 | 06/1 | | Activ | | (VERELAN) 240 mg SR | nightly. | | | 3/20 | | e | | capsule | | | | 17 | | | + + + +---------+------+------+-------+ | aspirin 81 MG EC | Take 81 mg by mouth | | 0 | 06/1 | | Activ | | tablet | daily with | | | 3/20 | | e | | | breakfast. | | | 17 | | | + + + +---------+------+------+-------+ | Multiple | Take 1 tablet by | | 0 | 06/1 | | Activ | | Vitamins-Minerals | mouth daily. | | | 3/20 | | e | | (MULTIVITAMIN WITH | | | | 17 | | | | MINERALS) tablet | | | | | | | + + + +---------+------+------+-------+ | Cinnamon 500 MG | Take 500 mg by mouth | | 0 | 06/1 | | Activ | | CAPS | daily. | | | 3/20 | | e | | | | | | 17 | | | + + + +---------+------+------+-------+ | cloNIDine | Place 1 patch onto | | 0 | 06/1 | | Activ | | (CATAPRES) 0.3 mg/24 | the skin once a | | | 3/20 | | e | | hr patch | week. | | | 17 | | | + + + +---------+------+------+-------+ | VICTOZA 18 MG/3ML | Inject 1.8 mg as | | 0 | 05/3 | | Activ | | injection | directed daily. | | | 1/20 | | e | | | | | | 19 | | | + + + +---------+------+------+-------+ | ergocalciferol | Take 50,000 Units by | | 0 | 08/0 | | Activ | | (VITAMIN D-2) 50,000 | mouth once a week. | | | 8/20 | | e | | units capsule | | | | 19 | | | + + + +---------+------+------+-------+ | Turmeric Curcumin | Take 1 capsule by | | 0 | 08/0 | | Activ | | 500 MG CAPS | mouth daily. | | | 8/20 | | e | | | | | | 19 | | | + + + +---------+------+------+-------+ | chromium | Take 1 tablet by | | 0 | 08/0 | | Activ | | picolinate 200 MCG | mouth daily. | | | 8/20 | | e | | TABS tablet | | | | 19 | | | + + + +---------+------+------+-------+ | metFORMIN | Take 1,000 mg by | | 0 | 08/0 | | Activ | | (GLUCOPHAGE) 1000 MG | mouth 2 (two) times | | | 8/20 | | e | | tablet | daily with meals. | | | 19 | | | + + + +---------+------+------+-------+ | | TAKE ONE CAPSULE BY | 30 | 11 | 08/1 | | Activ | | hydroCHLOROthiazide | MOUTH EVERY DAY | capsule | | 3/20 | | e | | (MICROZIDE) 12.5 MG | | | | 20 | | | | capsule | | | | | | | + + + +---------+------+------+-------+ | lisinopril | Take 1 tablet by | 30 | 11 | 08/0 | 08/0 | Expir | | (PRINIVIL, ZESTRIL) | mouth daily. | tablet | | 8/20 | 7/20 | ed | | 10 mg tablet | | | | 19 | 20 | | + + + +---------+------+------+-------+ | | Take 1 tablet by | 30 | 11 | 08/0 | 08/0 | Expir | | hydroCHLOROthiazide | mouth daily. | tablet | | 8/20 | 7/20 | ed | | (HYDRODIURIL) 12.5 | | | | 19 | 20 | | | MG tablet | | | | | | | + + + +---------+------+------+-------+ Active Problems + + + | Problem | Noted Date | + + + | Heart palpitations | 06/04/2019 | + + + | Dyspnea on exertion | 05/07/2019 | + + + | Precordial pain | 03/02/2019 | + + + | Ascending aorta dilatation | 03/02/2019 | + + + + + | Overview: Mild ascending aorta dilation. 4.3 cm per | | 04/17/2017 Echo | + + + + + | Former smoker | 03/02/2019 | + + + + + | Overview: Quit 02/2015, smoked 1/2 ppd x 20 years | + + + + + | Abnormal EKG | 03/02/2019 | + + + | Mixed hyperlipidemia | 11/03/2018 | + + + | Adenoma of right adrenal gland | 11/03/2018 | + + + | Obstructive sleep apnea syndrome | 11/03/2018 | + + + | Regular check-up | 03/12/2017 | + + + | Diabetes mellitus type 2, insulin dependent | 12/29/2016 | + + + + + | Overview: Insulin requiring from the start | + + + + + | Postconcussion syndrome | 07/31/2012 | + + + | Essential hypertension | | + + + | Narcolepsy | | + + + | Morbid obesity | | + + + | IBS (irritable bowel syndrome) | | + + + | Osteoarthritis, multiple sites | | + + + Encounters +--------+--------+ + + + | Date | Type | Specialty | Care Team | Description | +--------+--------+ + + + | 05/12/ | Refill | Cardiology | Danae Deng | Medication Refill | | 2020 | | | RAFFAELE Valentino | | +--------+--------+ + + + from Last 3 Months [...] | | + + +------+ + | Other (see comment) | Son | | Adrenal disorder | + + +------+ + | Seizures [...] + | Father | | | | + +------+ + + | Mother | | Alive | | + +------+ + + | Mother | | | | + +------+ + + | Sister | | Alive | | + +------+ + + | Son | | Alive | | + +------+ + + | Son | | Alive | | + +------+ + + | Son | | Alive | | + +------+ + + | Son | | | | + +------+ + + Social History + +-------+ +--------+------+ [...] + + + | Respiratory Rate | 16 | 05/07/2019 2:07 PM | | | | | PDT [...] | | + + + + + Plan of Treatment + + + + + | Health Maintenance | Due Date | Last | Comments | | | | Done | | + + + + + | Hepatitis C | | | | | Screening | 3 | | | + + + + + | Med Mgmt: Cr | | | | | | 3 | | | + + + + + | Med Mgmt: HBA1C | | | | | | 3 | | | + + + + + | Med Mgmt: K | | | | | | 3 | | | + + + + + | Med Mgmt: Na | | | | | | 3 | | | + + + + + | Med Mgmt: Vit D | | | | | | 3 | | | + + + + + | Med Mgmt: eGFR | | | | | | 3 | | | + + + + + | Medication | | | | | Management | 3 | | | + + + + + | Vaccine: | | | | | Pneumococcal 19-64 | 9 | | | | (1 of 1 - PPSV23) | | | | + + + + + | Diabetic Eye Exam | | | | | | 1 | | | + + + + + | Diabetic Foot Exam | | | | | | 1 | | | + + + + + | Hemoglobin A1c | | | | | Screening | 1 | | | + + + + + | Vaccine: | | | | | Dtap/Tdap/Td (1 - | 2 | | | | Tdap) | | | | + + + + + | Cervical Cancer | | | | | Screening (Pap) | 3 | | | + + + + + | Breast Cancer | | | | | Screening | 8 | | | + + + + + | Microalbumin | | | | | Screening | 9 | | | + + + + + | Vaccine: Influenza | | 07/23/20 | | | (#1) | 0 | 18, | | | | | 08/20/20 | | | | | 11 | | + + + + + Results Not on filefrom Last 3 Months Insurance + +--------+ +--------+ +---------+------+ | Payer | Benefi | Subscriber | Effect | Phone | Address | Type | | | t Plan | ID | stefano | | | | | | / | | Dates | | | | | | Group | | | | | | + +--------+ +--------+ +---------+------+ | [employer] | PHP | [id number] | 09/30/19 | [phone] | | PPO | | PLAN | PERSON | | 19-Pre | 5 | | | | | AL | | sent | | | | | | OPEN | | | | | | | | OPTION | | | | | | + +--------+ +--------+ +---------+------+ + +--------+ +--------+ + + | Guarantor Name | Accoun | Relation to | Date | Phone | Billing Address | | | t Type | Patient | of | | | | | | | | | | + +--------+ +--------+ + + | Vickie Desai | Person | Self | [birth year] | [address] | | | al/Fam | | 1974 | [id number] | [place] | | | [place] | | | [address] (Home) | [phone] | + +--------+ +--------+ + + | Vickie Desai | Person | Self | [birth year] | | [address] | | | al/Fam | | 1974 | [id number] | [place], [place] | | | [place] | | | [address] (Home) | [phone] | + +--------+ +--------+ + + Advance Directives + + + + + | Type | Date Recorded | Patient | Explanation | | | | Gymnastics Coach | | + + + + + | Power of | | | | | [place] | | | | + + + + + | Advance | | | | | Directive | | | | + + + + +
--- OUTSIDE RECORDS SUMMARY | ~2020-05-30 | XMS | Encounter Summary ---
Demographics + + + | Address | [address] | | | [place] [address] | + + + | Home Phone | | + + + | Preferred Language | Unknown | + + + | Marital Status | Single | + + + | Presybeterian Affiliation | Unknown | + + + | Race | White | + + + | Ethnic Group | Not or | + + + Author + + + | Author | [facility] | | | and [place] | + + + | Organization | [facility] | | | and [...] Team Providers + +------+ + | Care Counter Caser Name | Role | Phone | + +------+ + | Vera Foote | PCP | | + +------+ + Encounter Details +--------+ + + + + | Date | Type | Department | Care Team | Description | +--------+ + + + + | 04/21/ | Orders Only | [facility] | Danae Deng | | | 2019 | | [address]VERSION [address] | [address] | | | | | [address] | [place] | | | | | [place], [place] | [place] [address] | | | | | [id number] | [phone] | | | | | [phone] | | | +--------+ + + + [...] + | ECHO INTERPRETATION | Routin | 04/21/2019 | | Results for this | | OF OUTSIDE FILMS | e | 5:34 PM | | procedure are in the | | | | PDT | | results section. | + +--------+ + + + documented in this encounter Results ECHO Interpretation of Outside Films (04/21/2019 5:34 PM PDT) + + | Specimen | + + | | + + + + + | Impressions | Performed At | + + + | 1. Overall left ventricular systolic function is normal with an EF | | | between 60 - 65%. 2. The right ventricle is normal in size and | | | function. 3. The ascending aorta is mildly dilated, measuring up to | | | 4.0cm. 4. No significant valvular abnormalities are noted. 5. In | | | comparison to the previous echocardiographic study, done 04/17/17, | | | there are mild changes noted, as reported below. | | + + + + + + | Narrative | Performed At | + + + | Patient Name: Vickie Desai Date of : 1975 | | | Performing Physician: Greg Galindo MD | | | | | | INDICATIONS HTN, DILATED ASCENDING AORTA, PALPITATIONS, | | | DYSPNEA ON EXERTION CONCLUSIONS 1. Overall left | | | ventricular systolic function is normal with an EF between 60 - 65%. | | | 2. The right ventricle is normal in size and function. 3. The | | | ascending aorta is mildly dilated, measuring up to 4.0cm. 4. No | | | significant valvular abnormalities are noted. 5. In comparison to the | | | previous echocardiographic study, done 04/17/17, there are mild changes | | | noted, as reported below. FINDINGS -------- ECG rhythm: Sinus | | | rhythm. Study: A 2-dimensional transthoracic echocardiogram with | | | m-mode, spectral and color flow Doppler was perfomed at [facility]. Study: | | | This was a technically adequate study. Left Ventricle: Overall left | | | ventricular systolic function is normal with an EF between 60 - 65%. | | | It was > 70% on the previous study. Left Ventricle: The left | | | ventricle cavity size is normal. Left Ventricle: Left ventricular | | | wall thickness is normal, with the septum measured at 0.8 cm (it was | | | measured at 1. cm on the previous study). Left Ventricle: No regional | | | wall motion abnormalities. Left Ventricle: The diastolic filling | | | pattern is normal for the age of the patient. Right Ventricle: The | | | right ventricle is normal in size and function. Left Atrium: The left | | | atrium is normal in size. Right Atrium: The right atrium is normal | | | in size. Aortic Valve: The aortic valve is trileaflet and appears | | | structurally normal. Aortic Valve: There is no evidence of aortic | | | regurgitation. Aortic Valve: There is no evidence of aortic stenosis. | | | Mitral Valve: Normal appearing mitral valve. Mitral Valve: There is | | | trace mitral regurgitation. Mitral Valve: No evidence of MVP. | | | Tricuspid Valve: The tricuspid valve appears structurally normal. | | | Tricuspid Valve: Trace tricuspid regurgitation present. Tricuspid | | | Valve: The right ventricular systolic pressure (pulmonary artery | | | systolic pressure), as measured by Doppler, is 20.91mmHg. Tricuspid | | | Valve: There is no evidence of pulmonary hypertension. Pulmonic | | | Valve: Pulmonic valve appears structurally normal. Pulmonic Valve: | | | Trace pulmonic regurgitation. Pericardium: There is no pericardial | | | effusion. IVC/Hepatic Veins: The inferior vena cava is normal in size | | | and collapses > 50 % with sniff, indicating normal central venous | | | pressures. Aorta: The ascending aorta is mildly dilated, measuring up | | | to 4.0cm. It was measured at 4.3 cm on the previous study. Pulmonary | | | Veins: The flow patterns, measured by Doppler, appear normal. Mass: | | | No mass visualized Thrombus: No clot visualized Thrombus: No | | | vegetation visualized. Septum: No ASD observed. Septum: No VSD | | | observed. MEASUREMENTS Ao asc: 4.02 cm Ao | | | sinus: 3.[address] junct: 3.17 cm IVC: 1.87 cm | | | EDV(Teich): 145.57 ml IVSd: 0.79 cm LVIDd: 5.46 cm LVPWd: | | | 0.96 cm LVOT Area: 3.91 cm2 LVOT Diam: 2.23 cm %FS: | | | 25.68 % EF(Teich): 50.03 % ESV(Teich): 72.72 ml LVIDs: | | | 4.06 cm SV(Teich): 72.84 ml RV Major: 7.88 cm RV Minor: | | | 2.76 cm LVEF MOD A2C: 66.35 % SV MOD A2C: 69.75 ml LVEF MOD | | | A4C: 59.42 % SV MOD A4C: 70.31 ml EF Biplane: 63.62 % | | | LVEDV MOD BP: 114.35 ml LVESV MOD BP: 41.59 ml LVEDV MOD A2C: | | | 105.12 ml LVLd A2C: 9.29 cm LVEDV MOD A4C: 118.32 ml LVLd | | | A4C: 8.74 cm LVESV MOD A2C: 35.36 ml LVLs A2C: 7.60 cm | | | LVESV MOD A4C: 48.01 ml LVLs A4C: 7.36 cm LAESV(A-L): 61.63 | | | ml LAESV Index (A-L): 28.14 ml/m2 LAAs A2C: 19.00 cm2 LAESV | | | A-L A2C: 60.87 ml LALs A2C: 5.03 cm LAAs A4C: 18.70 cm2 | | | LAESV A-L A4C: 60.66 ml LALs A4C: 4.89 cm RAAs: 15.53 cm2 | | | RAESV A-L: 43.89 ml RAESV MOD: 41.73 ml RALs: 4.66 cm AV | | | maxP.38 mmHg AV meanP.09 mmHg AV Vmax: 1.75 m/s | | | AV Vmean: 1.14 m/s AV VTI: 31.14 cm MAR YKAY Vmax: 2.42 cm2 MARY KAY | | | (VTI): 2.78 cm2 AVAI (Vmax): 0.00 cm2/m2 AVAI (VTI): 0.00 | | | cm2/m2 LVOT maxP.77 mmHg LVOT meanP.61 mmHg LVSI | | | Dopp: 39.58 ml/m2 LVSV Dopp: 86.69 ml LVOT Vmax: 1.09 m/s | | | LVOT Vmean: 0.75 m/s LVOT VTI: 22.15 cm MV A Palomo: 0.68 m/s | | | MV Dec Oldham: 4.54 m/s2 MV DecT: 178.42 ms MV E Palomo: 0.81 | | | m/s MV E/A Ratio: 1.17 MV PHT: 51.74 ms MVA By PHT: 4.25 | | | cm2 Septal e': 0.06 m/s Septal E/e': 11.60 Lateral e': | | | 0.09 m/s Lateral E/e': 8.44 RAP: 5 mmHg RVSP: 20.91 mmHg | | | TR maxP.91 mmHg TR Vmax: 1.99 m/s Powderer: DBS | | | Authenticated by: Greg Galindo MD Report Date/Time: -- | | | [id number] | | + + + + + | Procedure Note | + + | Kirill, Rad Conversion - 05/21/2019 1:22 PM PDT Patient Name: Florin Desai of | | : 1975 Performing Physician: Greg Galindo, | | MD INDICATIONS H | | TN, DILATED ASCENDING AORTA, PALPITATIONS, DYSPNEA ON EXERTION CONCLUSIONS 1. | | Overall left ventricular systolic function is normal with an EF between 60 - 65%.2. The | | right ventricle is normal in size and function.3. The ascending aorta is mildly dilated, | | measuring up to 4.0cm. 4. No significant valvular abnormalities are noted. 5. In | | comparison to the previous echocardiographic study, done 04/17/17, there are mild changes | | noted, as reported below. FINDINGS--------ECG rhythm: Sinus rhythm.Study: A | | 2-dimensional transthoracic echocardiogram with m-mode, spectral and color flow Doppler | | was perfomed at [facility].Study: This was a technically adequate study.Left Ventricle: Overall | | left ventricular systolic function is normal with an EF between 60 - 65%. It was > 70% | | on the previous study.Left Ventricle: The left ventricle cavity size is normal.Left | | Ventricle: Left ventricular wall thickness is normal, with the septum measured at 0.8 cm | | (it was measured at 1. cm on the previous study).Left Ventricle: No regional wall | | motion abnormalities.Left Ventricle: The diastolic filling pattern is normal for the age | | of the patient.Right Ventricle: The right ventricle is normal in size and function.Left | | Atrium: The left atrium is normal in size.Right Atrium: The right atrium is normal in | | size.Aortic Valve: The aortic valve is trileaflet and appears structurally normal.Aortic | | Valve: There is no evidence of aortic regurgitation.Aortic Valve: There is no evidence | | of aortic stenosis.Mitral Valve: Normal appearing mitral valve.Mitral Valve: There is | | trace mitral regurgitation.Mitral Valve: No evidence of MVP.Tricuspid Valve: The | | tricuspid valve appears structurally normal.Tricuspid Valve: Trace tricuspid | | regurgitation present.Tricuspid Valve: The right ventricular systolic pressure | | (pulmonary artery systolic pressure), as measured by Doppler, is 20.91mmHg.Tricuspid | | Valve: There is no evidence of pulmonary hypertension.Pulmonic Valve: Pulmonic valve | | appears structurally normal.Pulmonic Valve: Trace pulmonic regurgitation.Pericardium: | | There is no pericardial effusion.IVC/Hepatic Veins: The inferior vena cava is normal in | | size and collapses > 50 % with sniff, indicating normal central venous pressures.Aorta: | | The ascending aorta is mildly dilated, measuring up to 4.0cm. It was measured at 4.3 cm | | on the previous study.Pulmonary Veins: The flow patterns, measured by Doppler, appear | | normal.Mass: No mass visualizedThrombus: No clot visualizedThrombus: No vegetation | | visualized.Septum: No ASD observed.Septum: No VSD observed. MEASUREMENTS Ao | | asc: 4.02 cmAo sinus: 3.[address] junct: 3.17 cmIVC: 1.87 cmEDV(Teich): | | 145.57 mlIVSd: 0.79 cmLVIDd: 5.46 cmLVPWd: 0.96 cmLVOT Area: 3.91 [id number] Diam: | | 2.23 cm%FS: 25.68 %EF(Teich): 50.03 %ESV(Teich): 72.72 mlLVIDs: 4.06 | | cmSV(Teich): 72.84 mlRV Major: 7.88 cmRV Minor: 2.76 cmLVEF MOD A2C: 66.35 %SV | | MOD A2C: 69.75 mlLVEF MOD A4C: 59.42 %SV MOD A4C: 70.31 mlEF Biplane: 63.62 | | %LVEDV MOD BP: 114.35 mlLVESV MOD BP: 41.59 mlLVEDV MOD A2C: 105.12 mlLVLd A2C: | | 9.29 cmLVEDV MOD A4C: 118.32 mlLVLd A4C: 8.74 cmLVESV MOD A2C: 35.36 mlLVLs A2C: | | 7.60 cmLVESV MOD A4C: 48.01 mlLVLs A4C: 7.36 cmLAESV(A-L): 61.63 mlLAESV Index | | (A-L): 28.14 ml/m2LAAs A2C: 19.00 [id number] A-L A2C: 60.87 mlLALs A2C: 5.03 | | cmLAAs A4C: 18.70 [id number] A-L A4C: 60.66 mlLALs A4C: 4.89 cmRAAs: 15.53 | | [id number] A-L: 43.89 mlRAESV MOD: 41.73 mlRALs: 4.66 cmAV maxP.38 mmHgAV | | meanP.09 mmHgAV Vmax: 1.75 m/Gerry Vmean: 1.14 m/Gerry VTI: 31.14 cmAVA Vmax: | | 2.42 cm2AVA (VTI): 2.78 [id number] (Vmax): 0.00 cm2/m2AVAI (VTI): 0.00 cm2/m2LVOT | | maxP.77 mmHgLVOT meanP.61 mmHgLVSI Dopp: 39.58 ml/m2LVSV Dopp: 86.69 | | mlLVOT Vmax: 1.09 m/sLVOT Vmean: 0.75 m/sLVOT VTI: 22.15 cmMV A Palomo: 0.68 m/sMV | | Dec Oldham: 4.54 m/s2MV DecT: 178.42 msMV E Palomo: 0.81 m/sMV E/A Ratio: 1.17MV | | PHT: 51.74 msMVA By PHT: 4.25 [id number] e': 0.06 m/sSeptal E/e': 11.60Lateral | | e': 0.09 m/sLateral E/e': 8.44RAP: 5 mmHgRVSP: 20.91 mmHgTR maxP.91 | | mmHgTR Vmax: 1.99 m/s Powderer: DBSAuthenticated by: Lane Mcneal | | Date/Time: -- [id number] IMPRESSION: 1. Overall left ventricular systolic | | function is normal with an EF between 60 - 65%.2. The right ventricle is normal in size | | and function.3. The ascending aorta is mildly dilated, measuring up to 4.0cm. 4. No | | significant valvular abnormalities are noted. 5. In comparison to the previous | | echocardiographic study, done 04/17/17, there are mild changes noted, as reported below. | |Ao st junct: 3.17 cm | |IVC: 1.87 cm | |EDV(Teich): 145.57 ml | |IVSd: 0.79 cm | |LVIDd: 5.46 cm | |LVPWd: 0.96 cm | |LVOT Area: 3.91 cm2 | |LVOT Diam: 2.23 cm | |%FS: 25.68 % | |EF(Teich): 50.03 % | |ESV(Teich): 72.72 ml | |LVIDs: 4.06 cm | |SV(Teich): 72.84 ml | |RV Major: 7.88 cm | |RV Minor: 2.76 cm | |LVEF MOD A2C: 66.35 % | |SV MOD A2C: 69.75 ml | |LVEF MOD A4C: 59.42 % | |SV MOD A4C: 70.31 ml | |EF Biplane: 63.62 % | |LVEDV MOD BP: 114.35 ml | |LVESV MOD BP: 41.59 ml | |LVEDV MOD A2C: 105.12 ml | |LVLd A2C: 9.29 cm | |LVEDV MOD A4C: 118.32 ml | |LVLd A4C: 8.74 cm | |LVESV MOD A2C: 35.36 ml | |LVLs A2C: 7.60 cm | |LVESV MOD A4C: 48.01 ml | |LVLs A4C: 7.36 cm | |LAESV(A-L): 61.63 ml | |LAESV Index (A-L): 28.14 ml/m2 | |LAAs A2C: 19.00 cm2 | |LAESV A-L A2C: 60.87 ml | |LALs A2C: 5.03 cm | |LAAs A4C: 18.70 cm2 | |LAESV A-L A4C: 60.66 ml | |LALs A4C: 4.89 cm | |RAAs: 15.53 cm2 | |RAESV A-L: 43.89 ml | |RAESV MOD: 41.73 ml | |RALs: 4.66 cm | |AV maxP.38 mmHg | |AV meanP.09 mmHg | |AV Vmax: 1.75 m/s | |AV Vmean: 1.14 m/s | |AV VTI: 31.14 cm | |MARY KAY Vmax: 2.42 cm2 | |MARY KAY (VTI): 2.78 cm2 | |AVAI (Vmax): 0.00 cm2/m2 | |AVAI (VTI): 0.00 cm2/m2 | |LVOT maxP.77 mmHg | |LVOT meanP.61 mmHg | |LVSI Dopp: 39.58 ml/m2 | |LVSV Dopp: 86.69 ml | |LVOT Vmax: 1.09 m/s | |LVOT Vmean: 0.75 m/s | |LVOT VTI: 22.15 cm | |MV A Palomo: 0.68 m/s | |MV Dec Oldham: 4.54 m/s2 | |MV DecT: 178.42 ms | |MV E Palomo: 0.81 m/s | |MV E/A Ratio: 1.17 | |MV PHT: 51.74 ms | |MVA By PHT: 4.25 cm2 | |Septal e': 0.06 m/s | |Septal E/e': 11.60 | |Lateral e': 0.09 m/s | |Lateral E/e': 8.44 | |RAP: 5 mmHg | |RVSP: 20.91 mmHg | |TR maxP.91 mmHg | |TR Vmax: 1.99 m/s | | | |Powderer: DBS | |Authenticated by: Greg Galindo MD | |Report Date/Time: -- [id number] | | | |IMPRESSION: | |1. Overall left ventricular systolic function is normal with an EF between 60 - 65%. | |2. The right ventricle is normal in size and function. | |3. The ascending aorta is mildly dilated, measuring up to 4.0cm. 4. No significant valvular abnormalities are noted. 5. In comparison to the previous echocardiographic study, done 03/30 06/16, there are mild changes noted, as reported below. | + + documented in this encounter Visit Diagnoses Not on filedocumented in this encounter"
--- OUTSIDE RECORDS SUMMARY | ~2020-05-30 | XMS | Encounter Summary ---
Demographics + + + | Address | [address] | | | [place] [address] | + + + | Home Phone | | + + + | Preferred Language | Unknown | + + + | Marital Status | Single | + + + | Anglican Affiliation | Unknown | + + + | Race | White | + + + | Ethnic Group | Not or | + + + Author + + + | Author | [facility] | | | and [place] | + + + | Organization | [facility] | | [...] Team Providers + +------+ + | Care Wrapping Machine Helper Name | Role | Phone | + +------+ + PCP | Unavailable | + +------+ + Encounter Details +--------+ + + + + | Date | Type | Department | Care Team | Description | +--------+ + + + + | 11/24/ | Hospital | [facility] | Kevin Neil | | | 2002 | Encounter | MED [facility] SLEEP | MD Melvin [address] | | | | | [place] [address] | [address] [place] | | | | | [place], [place] | [place] [address] | | | | | [address] | [phone] | | | | | [phone] | | | +--------+ + + + [...]
[~2020-05-30 23:06] MED LIST changes: +ATORVASTATIN CA40 MG PO; +VICTOZA 3-0.6 MG/0.1 SUB-Q
[2020-05-30] MEDS ORDERED: HYZAAR 50-12.51 EACH PO (23:25)
--- NOTE | 2020-05-31 17:19 | EKG ---
[facility] [address] [facility] [place] [facility] [place], [place] [address] Signed Normal sinus rhythm Nonspecific T wave abnormality Prolonged QT Abnormal ECG When compared with ECG of 17-FEB-2019 22:14, Nonspecific T wave abnormality no longer evident in Anterior leads Confirmed by JUDY MILLS DO ([id number]) on 05/31/2020 5:19:46 PM Electronically Signed By: JUDY MILLS DO 05/31/20 1719 PATIENT NAME: MONICA TUCKER UMER Electrocardiogram DATE OF : [birth year] PHYSICIAN: JUDY MILLS DO REPORT #: [id number] REPORT IS CONFIDENTIAL AND NOT TO BE RELEASED WITHOUT AUTHORIZATION
== END 2020-05-31 01:14 | disposition home or self-care (01) ==
LOC: ED 23:06
DX: I10 Essential (primary) hypertension (principal); I48.91 Unspecified atrial fibrillation; E11.9 Type 2 diabetes mellitus without complications; Z79.899 Other long term (current) drug therapy
CPT/HCPCS: 80053; 85025; 93005; 93010; 99284-25

== ENCOUNTER 2021-02-24 19:06 | Emergency (ER) | payer OTHER ==
[~2021-02-24] VITALS: Ht 170.2 cm; Wt 118.8 kg
[~2021-02-24 19:06] MED LIST changes: +HYZAAR 50-12.51 EACH PO; +LISINOPRIL-HCT1 EACH PO; +METOPROLOL TART25 MG PO
[2021-02-24] MEDS ORDERED: DOXYCYCLINE HY100 MG PO (20:20)
== END 2021-02-24 22:29 | disposition home or self-care (01) ==
LOC: ED 19:06
DX: M79.671 Pain in right foot (principal); I10 Essential (primary) hypertension; E66.9 Obesity, unspecified; I48.91 Unspecified atrial fibrillation; E11.9 Type 2 diabetes mellitus without complications; Z79.899 Other long term (current) drug therapy; Z79.84 Long term (current) use of oral hypoglycemic drugs
CPT/HCPCS: 80053; 83605; 85025; 87040; 96365; 96375; 99283-25; J1885; J3370; J7030; J7060

== ENCOUNTER 2021-03-23 10:05 | Day surgery (SDC) | payer OTHER ==
[~2021-03-23] VITALS: Ht 170.2 cm; Wt 119.0 kg
[~2021-03-23 10:05] MED LIST changes: +DOXYCYCLINE HY100 MG PO
--- NOTE | 2021-03-23 13:33 | NUR ---
PATIENT TO BATHROOM BEFORE SURGERY. SITTING UP IN WC, COMPLAINS OF BACK PAIN.
--- NOTE | 2021-03-23 15:28 | NUR ---
03/23/21 1528 Shira Downey 1522-PATIENT ARRIVED TO PACU ON 6L MASK RR EVEN NONAROUSABLE ORAL AIRWAY IN PLACE. SR. LEFT BREAST INCISION CDI. IVF INFUSING. 1526-PATIENT OPENING EYES TO VERBAL STIMULI NOT FOLLOWING COMMANDS. FALLS BACK ASLEEP. GLUCOSE 149
[2021-03-23] MEDS ORDERED: ACETAMINOPHEN500 MG PO (15:50)
[2021-03-23] MEDS ORDERED: OXYCODON-ACETA1 EAC2 PO (15:50)
[2021-03-23] MEDS ORDERED: IBUPROFEN600 MG PO (15:50)
--- NOTE | 2021-03-23 16:43 | NUR ---
PATIENT BACK TO ROOM REPORTS PAIN 7/10 ON PAIN SCALE. APPEARS TO BE TALKING ON PHONE AND WITHDRAWN. DESCRIBES PAIN DEEP ACHE THAT IS TOLERABLE. PROVIDED PATIENT WITH SNACK AND FLUIDS AND DISCUSSED PLAN FOR PAIN ADMINISTRATION. DRESSING TO LEFT AXILLA C/D/I.
--- NOTE | 2021-03-23 16:53 | NUR ---
EMILIA FROM [facility] IN ROOM TO PROVIDE FITTING FOR ALIDA TOP FOR BREAST SUPPORT AND EVALUATION.
--- NOTE | 2021-03-23 18:00 | NUR ---
PATIENT UP TO BATHROOM VOIDED WELL. STEADY ON FEET. PAIN TOLERABLE AND CONTROLLED AT 5/10 ON PAIN SCALE. PATIENT REPORTED BASELINE IS AT A 5 ON DAILY BASIS AND THAT LEVEL WAS TOLERABLE. REPORTS FEELS LIKE A DULL ACHE. DRESSING HAS SMALL AMOUNT OF DRAINAGE TO LEFT BREAST. ALIDA IN PLACE PROVIDING GOOD SUPPORT. CALLED DR. GUTIERREZ AND CLARIFIED PATIENT PLAN FOR TREATMENT POST OP, AND THEN PROVIDED INFORMATION TO PATIENT AND AUNT DELFIN WHO WAS AT THE BEDSIDE DURING DISCHARGE EDUCATION. ANSWERED QUESTIONS AND CONCERNS. THEN PROVIDED PATIENT TO FRONT WITH WHEELCHAIR RIDE. PATIENT TRANSFERED INTO VEHICLE.
--- NOTE | 2021-03-25 11:49 | OR ---
[facility] [place] [facility] [address] [place], [place] [address] Signed DATE OF OPERATION: 03/23/2021 SURGEON: Magi Gutierrez MD PREOPERATIVE DIAGNOSES: 1. Left upper outer quadrant infiltrating ductal breast carcinoma, ER/IA positive. 2. Obesity. 3. Multiple medical problems. POSTOPERATIVE DIAGNOSES: 1. Left upper outer quadrant infiltrating ductal breast carcinoma, ER/IA positive. 2. Obesity. 3. Multiple medical problems. 4. Negative sentinel lymph nodes x3 on frozen pathology. PROCEDURES: 1. Injection of methylene blue for sentinel lymph node identification upper outer aspect left breast periareolar area. 2. Left upper outer quadrant partial mastectomy. 3. Left deep axillary sentinel lymph node biopsy x3+. ANESTHESIA: General endotracheal, Sherice Hanley CRNA INDICATIONS: This 45-year-old woman is a patient of Jennifer WYLIE. She was found to have an abnormal mammogram in the upper outer aspect, ultimately undergoing image guided biopsy by Dr. Boucher in confirming infiltrating ductal breast carcinoma. ER/IA receptors are negative, Ki-67 proliferation index of only 11%. She does have family history of breast cancer in a maternal grandmother and a paternal cousin. She has a distant history of prior biopsy of the right breast approximately two years ago, which was benign. She is admitted at this time to undergo left breast sentinel lymph node biopsy as well as left partial mastectomy. An axillary dissection may be considered depending on the status of the axillary lymph nodes. She understands as does her significant other, the risk of bleeding, infection, cosmetic deformity, need for other indicated procedures and of course failure to cure the problem. It is anticipated she will also undergo radiation therapy as well. FINDINGS: The lesion in question was palpable. It was identified by ultrasound technique by Electronically Signed By: MAGI GUTIERREZ MD 03/25/21 1149 PATIENT NAME: MONICA TUCKER OPERATIVE REPORT DATE OF : 71 REPORT #: [id number] PHYSICIAN: MAGI GUTIERREZ MD PCP: JENNIFER FOOTE PAC REPORT IS CONFIDENTIAL AND NOT TO BE RELEASED WITHOUT AUTHORIZATION [facility] [address] [place], [place] [address] Signed Citlaly and encircled aiding in its confirmation as well. Once excised, specimen radiograph did confirm the lesion in question was excised fully. Permanent pathology is pending for the specimen of the breast itself. As regards to the axillary lymph nodes, there was good and avid uptake of radionuclide, but not as good uptake as blue dye. Nevertheless, sentinel lymph nodes were identified, numbering greater than 4 actually. Frozen pathology showed no evidence of malignancy in any of them. DESCRIPTION OF PROCEDURE: The patient was brought to the operating room after being received from radiology suite having undergone ultrasound localization the upper outer aspect lesion and encircling the skin corresponding to the abnormality. The lesion was certainly palpable on examination. Radionuclide had been injected for sentinel lymph node biopsy as well. After satisfactory general endotracheal anesthesia, the breast, chest wall, upper arm and axilla of the left thigh was prepared with a chlorhexidine solution and draped sterilely. Prior to preparation, mL of methylene blue dye was injected in the subdermal and subepithelial area in the upper outer aspect of the left breast to allow for sentinel lymph node identification. After sterile preparation and draping, a C Trak gamma probe with cover was applied to the axilla and the area of maximum intake designated as site for incision. A small transverse incision was made there and dissection was carried through the depths of the subcutaneous tissue and axilla with blunt electrocautery dissection. I did not initially see blue lymphatics particularly but hot uptake of radionuclide was noted. Small clips were applied to the pedicles of the initial sentinel lymph node that was biopsied. Additional tissue was taken and all of these "hot" lymph nodes were sent for frozen pathology. ultimately reported that none of the lymph nodes had evidence of microscopic or macroscopic metastatic disease. The axilla was packed with plain gauze. Numerous clips were used to secure hemostasis in the relatively vascular axilla. Plans were made for definitive excision of the lesion of the breast. The lesion was easily palpated. An incision was made in a curvilinear fashion in the upper aspect of the left breast. Dissection was carried through the dermis with electrocautery. Largely using cautery wide excision was undertaken of the palpable mass with a clinically negative margin. Specimen orientation included a short stitch superior and long stitch laterally. Irrigation was undertaken in the depths of the wound. Hemostasis assured with electrocautery. Parenchymal reapproximation of breast tissue from both inferior and central portions of the breast was accomplished with interrupted 2-0 Vicryl. This allowed for obliteration of empty space and there was no evidence of ongoing bleeding at the time of closure. The axillary gauze was removed showing good Electronically Signed By: MAGI GUTIERREZ MD 03/25/21 1149 PATIENT NAME: MONICA TUCKER OPERATIVE REPORT DATE OF : [birth year] REPORT #: [id number] PHYSICIAN: MAGI GUTIERREZ MD PCP: JENNIFER FOOTE PAC REPORT IS CONFIDENTIAL AND NOT TO BE RELEASED WITHOUT AUTHORIZATION [facility] [address] [place], [place] [address] Signed hemostasis of the axilla. By this point, several reports regarding sentinel lymph nodes had been received showing no evidence of metastatic disease to any of them. Specimen excised from the breast was sent for specimen radiograph, which was reported as including the lesion in question by Dr. Boucher. The breast was reapproximated with interrupted 2-0 Vicryl in deep layers and running subcuticular 3-0 Vicryl for the skin. Steri-Strips were applied. The axilla was once again examined and found to have no evidence of bleeding or other problems and it was closed in layers with Vicryl as well. Steri-Strips were applied there as well. Acticoat and silver absorptive dressing was applied to both sites. Frozen pathology showed no evidence of metastatic disease. Specimen radiograph confirmed the lesion to be in the excised specimen. Blood loss was less than 25 mL. Sponge, needle and instrument counts were reported as correct x3. MD ELODIA Roth/ABHAY /[id number] cc: MD Mckay Mills MD, PH.D. Jennifer Foote PA-C Copies: JEROD FRANCES MD, JUNO ACUNA, ERIKA PAC ~ Electronically Signed By: MAGI GUTIERREZ MD 03/25/21 1149 PATIENT NAME: MONICA TUCKER OPERATIVE REPORT DATE OF : [birth year] REPORT #: [id number] PHYSICIAN: MAGI GUTIERREZ MD PCP: JENNIFER FOOTE PAC REPORT IS CONFIDENTIAL AND NOT TO BE RELEASED WITHOUT AUTHORIZATION
--- NOTE | 2021-03-30 18:14 | PATH ---
[facility] [address] [place], [place] [address] Signed SPECIMEN(S): A SENTINEL LYMPH NODE 1 SPECIMEN(S): B SENTINEL LYMPH NODE 2 SPECIMEN(S): C SENTINEL LYMPH NODE 3 SPECIMEN(S): D LEFT UPPER OUTER BREAST SPECIMEN(S): E ADDITIONAL SUPERIOR MARGIN SPECIMEN SOURCE: A. SENTINEL LYMPH NODE 1 B. SENTINEL LYMPH NODE 2 C. SENTINEL LYMPH NODE 3 D. LEFT UPPER OUTER BREAST E. ADDITIONAL SUPERIOR MARGIN CLINICAL HISTORY: Left breast cancer Specimen Time to Fixation- 03/23/2021 2:48:00 PM FROZEN SECTION DIAGNOSIS: A.[place] lymph node #1: - No evidence of malignancy in claim representative section frozen. Waleska Gomez M.D. 03-23-2021 2:28 p.m. B.[place] lymph node #2: - No evidence of malignancy in claim representative section frozen. Waleska Gomez M.D. 03-23-2021 2:40 p.m. C.[place] lymph node #3, Largest of six lymph node candidates: - No evidence of malignancy in claim representative section frozen. Waleska Gomez M.D. 03-23-2021 2:49 p.m. Frozen section diagnoses called to Dr. Shine. FINAL PATHOLOGIC DIAGNOSIS: A. [place] lymph node #1, left axilla, excisional biopsy: - One lymph node with no evidence of malignancy (0/1). B. [place] lymph node #2, left axilla, excisional biopsy: - One lymph node with no evidence of malignancy (0/1). C. [place] lymph node #3, left axilla, excisional biopsy: - Six lymph nodes with no evidence of malignancy (0/6). D. Breast, left, upper outer quadrant, lumpectomy: - Invasive ductal carcinoma with the following features: - Tumor site: Upper outer quadrant. - Tumor size: 10 x 10 x 9 mm. - Histologic type: Invasive carcinoma of no special type (ductal). PATIENT NAME: MONIAC DESAI PATHOLOGY DATE OF : 71 REPORT #: [id number] PHYSICIAN: ELMER BECERRA PCP: JENNIFER BATISTA PAC REPORT IS CONFIDENTIAL AND NOT TO BE RELEASED WITHOUT AUTHORIZATION [facility] [address] [place] [place], [place] [address] Signed - Histologic grade (Agustin histologic score): - Glandular (acinar)/tubular differentiation: Score 3. - Nuclear pleomorphism: Score 2. - Mitotic rate: Score 1. - Overall grade: Grade 2 (total score 6 of 9). - Tumor focality: Single focus of invasive carcinoma. - Ductal carcinoma in situ (DCIS): Present, negative for extensive intraductal component (EIC). - Architectural patterns: Cribriform. - Nuclear grade: Grade II (intermediate). - Necrosis: Present, single cell necrosis. - Lobular carcinoma in situ (LCIS): Not identified. - Margins: - Invasive carcinoma margins: Uninvolved by invasive carcinoma. - Inferior margin: 0.9 mm. - Posterior margin: 5 mm. - Anterior, superior, medial, and lateral margins: Greater than 10 mm. - DCIS margins: Focally involved by DCIS. - DCIS is present at posterior-inferior margin. - Anterior, superior, medial, and lateral margins: Greater than 10 mm. - Regional lymph nodes: Uninvolved by tumor cells. - Total number of lymph nodes examined: 8. - Total number of sentinel lymph nodes examined: 8. - Treatment effect in the breast: No known pre-surgical therapy. - Lymphovascular invasion: Not identified. - Microcalcifications: Present associated with invasive carcinoma. - Additional findings: Intraductal papilloma (3 mm), fibrocystic changes. - Breast biomarker studies: Please refer to previously performed testing ([id number]), interpreted as estrogen receptor positive, progesterone receptor positive, HER2 negative by IHC, and Ki-67 proliferation index of 11%. - Pathologic stage classification (pTNM, AJCC 8th edition): pT1b pN0. E. Breast, left, additional superior margin, excision: - Focal Invasive ductal carcinoma with the following features: - Invasive carcinoma size: approximately 3 mm. - Histologic grade (Agustin histologic score): Not graded, PATIENT NAME: MONICA DESAI PATHOLOGY DATE OF : 71 REPORT #: [id number] PHYSICIAN: ELMER BECERRA PCP: JENNIFER BATISTA PAC REPORT IS CONFIDENTIAL AND NOT TO BE RELEASED WITHOUT AUTHORIZATION [facility] [address] [place], [place] [address] Signed see Comment. - Ductal carcinoma in situ (DCIS): Present, negative for extensive intraductal component (EIC). - Architectural patterns: Cribriform. - Nuclear grade: Grade II (intermediate). - Necrosis: Not identified. - Lymphovascular invasion: Not identified. - Microcalcifications: Not identified. - Final margins: Uninvolved by invasive carcinoma or DCIS. - Invasive carcinoma 10 mm from final margin. - DCIS 10 mm from final margin. - See Comment. COMMENT: In the lumpectomy, DCIS is focally present at the cauterized posterior-inferior margin and invasive carcinoma is close to the inferior margin in that same area. The carcinoma is greater than 10 mm from the superior margin. In the separately submitted additional margin, designated "additional superior margin" (specimen E), is a focus of invasive carcinoma and DCIS adjacent to the cauterized tissue edge (not true margin). The carcinoma in this addition margin is similar in appearance to the carcinoma in the lumpectomy specimen. The vast majority is of the invasive carcinoma is cauterized, precluding definitive histologic grade assignment. The carcinoma in the separately submitted additional superior margin could represent the same focus of carcinoma as the lumpectomy, rather than a separate focus. Correlation with definitive surgical location of the additional superior margin specimen is necessary for final margin status of the lumpectomy. As part of [facility]' Quality Improvement Program, this case was reviewed by another member of our pathology staff. NAL:cml:C1NR MICROSCOPIC EXAMINATION: Histologic sections of all submitted blocks are examined by light microscopy. These findings, together with the gross examination, support the pathologic diagnosis. Immunohistochemical stains (with appropriately staining controls) were performed: PATIENT NAME: MONICA DESAI PATHOLOGY DATE OF : [birth year] REPORT #: [id number] PHYSICIAN: ELMER PATHOLOGY PCP: JENNIFER BATISTA PAC REPORT IS CONFIDENTIAL AND NOT TO BE RELEASED WITHOUT AUTHORIZATION [address] [address] Signed Regarding specimens A-C: Pancytokeratin (AE1/AE3) was done on each section of the sentinel lymph nodes and confirms the absence of metastatic carcinoma. Regarding specimen D: p63 and smooth muscle myosin heavy chain were performed to evaluate the tumor close to the margin posterior-inferior margin and confirms the presence of myoepithelial cells surrounding the foci of DCIS in this area. No invasive carcinoma is seen at the margin. Regarding specimen E: Cauterized foci of invasive carcinoma are present at the cauterized edge opposite of the new (true) margin. P63 and [facility] confirm the absence of myoepithelial cells surrounding the invasive carcinoma in one section. In another section, [facility] confirms the absence of myoepithelial cells surrounding the invasive carcinoma cells and ER demonstrates overexpression in those carcinoma cells. GROSS DESCRIPTION: Five specimens are received in five containers, labeled "Monica Desai." A. The specimen, labeled "JeremyMonica chapa," and designated on the requisition "sentinel lymph node #1," is received fresh for frozen section diagnosis and consists of 1.4 x 1.0 x 0.5 cm possible lymph node. The lymph node is trisected and one third is submitted for frozen section and resubmitted as received in cassette A1. The remainder of the lymph node is submitted in cassette A2. Only adipose tissue remains within the container. B. The specimen, labeled "PiedadromuloMonica chapa," and designated on the requisition "sentinel lymph node #2," is received fresh for frozen section diagnosis and consists of 1.1 x 1.0 x 0.6 cm possible lymph node. This lymph node is bisected and half is submitted for frozen section and resubmitted as received in cassette B1. The remainder of the lymph node is submitted in cassette B2. Only adipose tissue remains within the container. C. The specimen, labeled "Monica Desai," and designated on the requisition "sentinel lymph node #3," is received fresh for frozen section diagnosis and consists of 2.5 x 2.7 x 0.5 cm portion of yellow-seaman adipose tissue. Six possible lymph nodes are identified ranging in size from 0.2 cm up to 1.1 cm in greatest dimension. Upon discussion with the surgeon - requested "most suspicious lymph node" for frozen. The largest possible lymph node was then bisected and half is submitted for frozen section and resubmitted as received in cassette C1. The lymph nodes are entirely submitted for PATIENT NAME: MONICA DESAI PATHOLOGY DATE OF : [birth year] REPORT #: [id number] PHYSICIAN: ELMER BECERRA PCP: JENNIFER BATISTA PAC REPORT IS CONFIDENTIAL AND NOT TO BE RELEASED WITHOUT AUTHORIZATION [facility] [address] [place], [place] [address] Signed histologic examination. Only adipose tissue remains within the container. Rail Signal Designer sections are submitted in seven cassettes. Cassette summary: (C1) half of largest lymph node, frozen section (C2) remainder of largest lymph node (C3) one possible lymph node, serially sectioned (C4) one possible lymph node, serially sectioned (C5) one possible lymph node, serially sectioned (C6) one possible lymph node, trisected (C7) one possible lymph node, trisected. D. The specimen, labeled "Monica Desai," and designated on the requisition "left upper outer quadrant breast cancer," is received in formalin and consists of 48 gram oriented portion of yellow-seaman fibroadipose tissue that is 8.6 x 4.9 x 3.4 cm. A short suture is present and identifies the superior margin; and a long suture identifies the lateral margin. The specimen is inked as follows: superior - blue; inferior - green; medial - red; lateral - orange; anterior - yellow; and posterior - black. The specimen is serially sectioned from medial to lateral into 16 slices revealing a 1.0 x 1.0 x 0.9 cm white firm stellate mass present in slices 8-10. The mass is 1.6 cm from the anterior soft tissue margin, 1.1 cm from the posterior soft tissue margin, 3.7 cm from the superior soft tissue margin, 0.1 cm from the inferior soft tissue margin, 3.1 cm from the medial soft tissue margin, and 3.4 cm from the lateral soft tissue margin. Approximately 80% of the remaining specimen is a yellow-seaman greasy adipose tissue and 20% is a white-seaman rubbery fibrous tissue. Rail Signal Designer sections are submitted in nine cassettes. Cassette summary: (D1-D2) mass to inferior soft tissue resection margin, perpendicular (D3) fibroadipose tissue medial to mass (slice seven) (D4) fibroadipose tissue lateral to mass (slice 11) (D5) anterior soft tissue resection margin, perpendicular (D6) posterior soft tissue resection margin, perpendicular (D7) superior soft tissue resection margin, perpendicular (D8) lateral soft tissue resection margin, perpendicular (D9) medial soft tissue resection margin, perpendicular. Cold ischemia time: Five minutes Approximate Formalin time: 19 hours. E. The specimen, labeled "Monica Desai," and designated on the requisition PATIENT NAME: MONICA DESAI PATHOLOGY DATE OF : 71 REPORT #: [id number] PHYSICIAN: ELMER PATHOLOGY PCP: JENNIFER BATISTA PAC REPORT IS CONFIDENTIAL AND NOT TO BE RELEASED WITHOUT AUTHORIZATION [facility] [address] [place], [place] [address] Signed "additional superior margin," is received in formalin and consists of 17 g unoriented portion of yellow-seaman fibroadipose tissue that is 5.8 x 4.2 x 2.1 cm. The specimen is crescent shaped with the smaller curvatures displaying pink-red shaggy tissue. The greater curvature is inked blue and the lesser curvature is inked black. The specimen is serially sectioned perpendicular to the long axis revealing approximately 95% of the specimen is yellow-seaman greasy adipose tissue and 5% is a delicate fibrous tissue. No discrete mass lesions are grossly identified. The specimen is entirely submitted consecutively in cassettes E1-E15 with bisected cross-sections in E2, E3, E4, E5, E6, E7, E8, E9, E10, E11, E12, and E13. Cold ischemia time: Five minutes Approximate Formalin time: 19 hours. FB (under the direct supervision of a pathologist) The Gross Description was prepared using a voice recognition system. The report was reviewed for accuracy; however, sound-alike word errors, addition and/or deletions may occur. If there is any question about this report, please contact Client Services. ADDITIONAL NOTES: Immunohistochemical and/or in situ hybridization studies were performed on this case with the appropriate positive controls that react as expected. This test was developed and its performance characteristics determined by [facility]. It has not been cleared or approved by the U.S. Food and Drug Administration. The FDA has determined that such clearance or approval is not necessary. This test is used for clinical purposes. It should not be regarded as investigational or for research. [facility] is certified under the Clinical Laboratory Improvement Amendments of 1988 (CLIA) as qualified to perform high complexity clinical laboratory testing. This assay has not been validated for specimens that have been decalcified. PERFORMING LABORATORY: Frozen section performed at [facility], [address] [place], [place] [address] (CLIA# [id number]). The technical component was performed by [facility], [address] [place] [id number] (Special Diet Cook: Farida Sullivan MD; CLIA# [id number]). Professional interpretation was performed by [facility], [address] [place] [address], PATIENT NAME: MONICA DESAI PATHOLOGY DATE OF : [birth year] REPORT #: [id number] PHYSICIAN: ELMER BECERRA PCP: JENNIFER BATISTA PAC REPORT IS CONFIDENTIAL AND NOT TO BE RELEASED WITHOUT AUTHORIZATION [facility] [address] [place], [place] [address] Signed [place] [address] (CLIA# [id number]). Diagnostician: Waleska Gomez MD Pathologist Electronically Signed 03/30/2021 Copies: ~ PATIENT NAME: MONICA DESAI PATHOLOGY DATE OF : [birth year] REPORT #: [id number] PHYSICIAN: ELMER PATHOLOGY PCP: JENINFER BATISTA PAC REPORT IS CONFIDENTIAL AND NOT TO BE RELEASED WITHOUT AUTHORIZATION
== END 2021-03-23 18:00 | disposition home or self-care (01) ==
LOC: US 10:05 → DS 10:05 → OPS 10:05 → DS 10:12 → OPS 18:00
PROVIDERS: ATTEND Surgery
PROC: 0HBU0ZX Excision of Left Breast, Open Approach, Diagnostic (ICD-10-PCS; principal; 2021-03-23 13:00)
DX: C50.412 Malignant neoplasm of upper-outer quadrant of left female breast (principal); Z17.0 Estrogen receptor positive status [ER+]; I10 Essential (primary) hypertension; E11.9 Type 2 diabetes mellitus without complications; G47.30 Sleep apnea, unspecified; E66.01 Morbid (severe) obesity due to excess calories; K21.9 Gastro-esophageal reflux disease without esophagitis; Z68.39 Body mass index [BMI] 39.0-39.9, adult; Z79.899 Other long term (current) drug therapy; Z79.84 Long term (current) use of oral hypoglycemic drugs; Z87.891 Personal history of nicotine dependence; Z86.73 Personal history of transient ischemic attack (TIA), and cerebral infarction without residual deficits; Z80.3 Family history of malignant neoplasm of breast; Z86.16 Personal history of COVID-19
CPT/HCPCS: 00404; 76098; J0330; J0690; J1100; J1644; J1885; J2001; J2250; J2300; J2405; J2704; J3010; J3475; J7121

== ENCOUNTER 2021-06-22 18:39 | Emergency (ER) | payer OTHER ==
[~2021-06-22] VITALS: Ht 170.2 cm; Wt 120.7 kg
[~2021-06-22 18:39] MED LIST changes: +ACETAMINOPHEN500 MG PO; +OXYCODON-ACETA1 EAC2 PO
[2021-06-22] MEDS ORDERED: HYDROCODON-ACE1 EA10 PO (22:15)
== END 2021-06-22 22:43 | disposition home or self-care (01) ==
LOC: ED 18:39
DX: R07.89 Other chest pain (principal); I10 Essential (primary) hypertension; E66.9 Obesity, unspecified; I48.91 Unspecified atrial fibrillation; E11.9 Type 2 diabetes mellitus without complications; Z79.899 Other long term (current) drug therapy; Z79.84 Long term (current) use of oral hypoglycemic drugs
CPT/HCPCS: 71101; 99284-25

== ENCOUNTER 2021-10-17 14:59 | Emergency (ER) | payer OTHER ==
[~2021-10-17] VITALS: Ht 170.2 cm; Wt 127.0 kg
[~2021-10-17 14:59] MED LIST changes: +HYDROCODON-ACE1 EA10 PO
--- OUTSIDE RECORDS SUMMARY | 2021-10-17 15:04 | XMS ---
PreManage Notification: MONICA TUCKER Security Horseradish Grinder Events No recent Security Events currently on file CRITERIA MET - [facility] CARE PROVIDERS There are no care providers on record at this time. Giselle has no Care Guidelines for this patient. [place] VISIT COUNT (12 MO.) 4 [facility] [place] TOTAL 4 NOTE: Visits indicate total known visits. ED/C VISIT TRACKING (12 MO.) 10/17/2021 15:02 [facility] [place] TYPE: Emergency COMPLAINT: - CHEST PAINS, L ARM NUMBNESS, L BACK/SHOULDER PAIN 06/22/2021 18:[address] 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 [place] TYPE: Emergency COMPLAINT: - RT FOOT PAIN/FEVER DIAGNOSES: - Type 2 diabetes mellitus without complications - Essential (primary) hypertension - Obesity, unspecified - Other assisted (current) drug therapy - Unspecified atrial fibrillation - terminal carman (current) use of oral hypoglycemic drugs - Pain in right foot 01/04/2021 21:48 [facility] [place] TYPE: Emergency COMPLAINT: - BLOOD PRESSURE PROBLEM DIAGNOSES: - Unspecified atrial fibrillation - terminal carman (current) use of oral hypoglycemic drugs - Type 2 diabetes mellitus without complications - Obesity, unspecified - Essential (primary) hypertension - Abnormal electrocardiogram [ECG] [EKG] - Dizziness and giddiness - Other truck terminal manager (current) drug therapy INPATIENT VISIT TRACKING (12 MO.) No inpatient visits to display in this time frame [id number]
[2021-10-17] MEDS ORDERED: LIDODERM1 EACH TD (16:19)
[2021-10-17] MEDS ORDERED: NAPROSYN500 MG PO (16:19)
--- NOTE | 2021-10-19 11:26 | EKG ---
[facility] [address] [place] [address] Signed Normal sinus rhythm Minimal voltage criteria for LVH, may be normal variant ( R in aVL ) Nonspecific T wave abnormality Abnormal ECG No previous ECGs available Confirmed by JOSE E MCLEAN MD ([id number]) on 10/19/2021 11:26:06 AM Electronically Signed By: JOSE E MCLEAN MD 10/19/21 1126 PATIENT NAME: MONICA TUCKER Electrocardiogram DATE OF : 71 PHYSICIAN: JOSE E MCLEAN MD REPORT #: [id number] REPORT IS CONFIDENTIAL AND NOT TO BE RELEASED WITHOUT AUTHORIZATION
== END 2021-10-17 17:21 | disposition home or self-care (01) ==
LOC: ED 14:59
DX: R07.89 Other chest pain (principal); I10 Essential (primary) hypertension; E66.9 Obesity, unspecified; I48.91 Unspecified atrial fibrillation; E11.9 Type 2 diabetes mellitus without complications; Z85.3 Personal history of malignant neoplasm of breast; Z68.41 Body mass index [BMI] 40.0-44.9, adult; Z79.84 Long term (current) use of oral hypoglycemic drugs; Z79.899 Other long term (current) drug therapy
CPT/HCPCS: 71045; 80048; 83735; 84484; 85025; 93005; 93010; 96374; 99285-25; J1885

== ENCOUNTER 2021-11-29 18:49 | Emergency (ER) | payer OTHER ==
[~2021-11-29] VITALS: Ht 170.2 cm; Wt 127.0 kg
[~2021-11-29 18:49] MED LIST changes: +LIDODERM1 EACH TD; +NAPROSYN500 MG PO
--- OUTSIDE RECORDS SUMMARY | 2021-11-29 18:52 | XMS ---
PreManage Notification: MONICA TUCKER Security Content Specialist Events No recent Security Events currently on file CRITERIA MET - [facility] CARE PROVIDERS JENNIFER BATISTA Physician Collar Closer Lockstitch 10/18/2021-Current PHONE: Unknown Giselle has no Care Guidelines for this patient. EMeghan VISIT COUNT (12 MO.) 5 [facility] [place] TOTAL 5 NOTE: Visits indicate total known visits. 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 - Personal history of malignant neoplasm of breast - Body mass index [BMI]40.0-44.9, adult - Other residential (current) drug therapy - Type 2 diabetes mellitus without complications - Other chest pain - Essential (primary) hypertension - Unspecified atrial fibrillation - Obesity, unspecified 06/22/2021 18:40 [facility] [place] TYPE: Emergency COMPLAINT: - RT SIDED RIB PAIN/ NO INJ DIAGNOSES: - prison (current) use of oral hypoglycemic drugs - Other chest pain - Type 2 diabetes mellitus without complications - Other residential (current) drug therapy - Unspecified atrial fibrillation - Obesity, unspecified - Essential (primary) hypertension - Pleurodynia 02/24/2021 19:07 [facility] [place] TYPE: Emergency COMPLAINT: - RT FOOT PAIN/FEVER DIAGNOSES: - Type 2 diabetes mellitus without complications - Essential (primary) hypertension - Obesity, unspecified - Other residential (current) drug therapy - Unspecified atrial fibrillation - 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
[2021-11-29] MEDS ORDERED: ASPIRIN81 MG PO (19:34)
[2021-11-29] MEDS ORDERED: ANASTROZOLE1 MG PO (19:34)
[2021-11-29] MEDS ORDERED: ZINC-22050 MG PO (19:36)
[2021-11-29] MEDS ORDERED: ALL DAY ALLERGY10 M3 PO (19:36)
[2021-11-29] MEDS ORDERED: HYDRALAZINE HCL10 MG PO (21:10)
--- NOTE | 2021-11-30 07:22 | EKG ---
[facility] [address] [facility] [address] [place], [place] [address] Signed Sinus tachycardia Moderate voltage criteria for LVH, may be normal variant ( R in aVL , [employer] product ) Possible Anterior infarct , age undetermined Abnormal ECG When compared with ECG of 17-OCT-2021 15:06, No significant change was found Confirmed by ZACKERY MOREAU MD ([id number]) on 11/30/2021 7:22:39 AM Electronically Signed By: ZACKERY MOREAU MD 11/30/21 0722 PATIENT NAME: MONICA TUCKER Electrocardiogram DATE OF : 71 PHYSICIAN: ZACKERY MOREAU MD REPORT #: [id number] REPORT IS CONFIDENTIAL AND NOT TO BE RELEASED WITHOUT AUTHORIZATION
== END 2021-11-29 21:24 | disposition home or self-care (01) ==
LOC: ED 18:49
DX: I10 Essential (primary) hypertension (principal); E66.9 Obesity, unspecified; I48.91 Unspecified atrial fibrillation; E11.9 Type 2 diabetes mellitus without complications; Z85.3 Personal history of malignant neoplasm of breast; Z88.8 Allergy status to other drugs, medicaments and biological substances; Z79.899 Other long term (current) drug therapy; Z79.82 Long term (current) use of aspirin; Z79.84 Long term (current) use of oral hypoglycemic drugs
CPT/HCPCS: 36415; 71046; 80053; 83880; 84484; 85025; 93005; 93010; 96374; 96375; 99284-25; J1200; J2765

== ENCOUNTER 2021-12-14 17:53 | Emergency (ER) | payer OTHER ==
[~2021-12-14] VITALS: Ht 170.2 cm; Wt 127.0 kg
[~2021-12-14 17:53] MED LIST changes: +ALL DAY ALLERGY10 M3 PO; +ANASTROZOLE1 MG PO; +ASPIRIN81 MG PO; +HYDRALAZINE HCL10 MG PO; +ZINC-22050 MG PO
--- OUTSIDE RECORDS SUMMARY | 2021-12-14 17:56 | XMS ---
PreManage Notification: MONICA TUCKER Security Audio Video Repairer Events No recent Security Events currently on file CRITERIA MET - [facility] - 2 Visits in 30 Days CARE PROVIDERS JENNIFER BATISTA Physician Senior Premium Auditor 10/18/2021-Current PHONE: Unknown Giselle has no Care Guidelines for this patient. EMeghan VISIT COUNT (12 MO.) [address] TOTAL 7 NOTE: Visits indicate total known visits. ED/UCC VISIT TRACKING (12 MO.) 12/14/2021 17:54 [facility] [place] TYPE: Emergency COMPLAINT: - FACIAL NUMBNESS 11/30/2021 22:26 [facility] [place] TYPE: Emergency DIAGNOSES: - Secondary hypertension, unspecified - Essential (primary) hypertension - high blood pressure 11/29/2021 18:50 [facility] [place] TYPE: Emergency COMPLAINT: - BLOOD PRESSURE PROBLEM DIAGNOSES: - Dizziness and giddiness - Other termite helper (current) drug therapy - Obesity, unspecified - Personal history of malignant neoplasm of breast - Type 2 diabetes mellitus without complications - retirement (current) use of aspirin - Essential (primary) hypertension - Unspecified atrial fibrillation - Allergy status to other drugs, medicaments and biological substances - retirement (current) use of oral hypoglycemic drugs 10/17/2021 15:02 [facility] [place] TYPE: Emergency COMPLAINT: - CHEST PAINS, L ARM NUMBNESS, L BACK/SHOULDER PAIN DIAGNOSES: - retirement (current) use of oral hypoglycemic drugs - Personal history of malignant neoplasm of breast - Body mass index [BMI]40.0-44.9, adult - Other senior living (current) drug therapy - Type 2 diabetes mellitus without complications - Other chest pain - Essential (primary) hypertension - Unspecified atrial fibrillation - Obesity, unspecified 06/22/2021 18:40 [facility] [place] TYPE: Emergency COMPLAINT: - RT SIDED RIB PAIN/ NO INJ DIAGNOSES: - retirement (current) use of oral hypoglycemic drugs - Other chest pain - Type 2 diabetes mellitus without complications - Other senior living (current) drug therapy - Unspecified atrial fibrillation - Obesity, unspecified - Essential (primary) hypertension - Pleurodynia 02/24/2021 19:07 [facility] [place] TYPE: Emergency COMPLAINT: - RT FOOT PAIN/FEVER DIAGNOSES: - Type 2 diabetes mellitus without complications - Essential (primary) hypertension - Obesity, unspecified - Other senior living (current) drug therapy - Unspecified atrial fibrillation - 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 [place] TYPE: Emergency COMPLAINT: - BLOOD PRESSURE PROBLEM DIAGNOSES: - Unspecified atrial fibrillation - retirement (current) use of oral hypoglycemic drugs - Type 2 diabetes mellitus without complications - Obesity, unspecified - Essential (primary) hypertension - Abnormal electrocardiogram [ECG] [EKG] - Dizziness and giddiness - Other termite helper (current) drug therapy INPATIENT VISIT TRACKING (12 MO.) No inpatient visits to display in this time frame [id number]
--- NOTE | 2021-12-15 06:35 | EKG ---
[facility] [address] [facility] [address] [place], [place] [address] Signed Normal sinus rhythm Moderate voltage criteria for LVH, may be normal variant ( R in aVL , [place] product ) Borderline ECG When compared with ECG of 29-NOV-2021 18:57, No significant change was found Confirmed by ZACKERY MOREAU MD ([id number]) on 12/15/2021 6:35:06 AM Electronically Signed By: ZACKERY MOREAU MD 12/15/21 0635 PATIENT NAME: MONICA TUCKER Electrocardiogram DATE OF : 71 PHYSICIAN: ZACKERY MOREAU MD REPORT #: [id number] REPORT IS CONFIDENTIAL AND NOT TO BE RELEASED WITHOUT AUTHORIZATION
== END 2021-12-14 19:55 | disposition home or self-care (01) ==
LOC: ED 17:53
DX: I10 Essential (primary) hypertension (principal); G43.909 Migraine, unspecified, not intractable, without status migrainosus; E66.9 Obesity, unspecified; I48.91 Unspecified atrial fibrillation; E11.9 Type 2 diabetes mellitus without complications; Z85.3 Personal history of malignant neoplasm of breast; Z79.899 Other long term (current) drug therapy; Z79.82 Long term (current) use of aspirin; Z79.84 Long term (current) use of oral hypoglycemic drugs
CPT/HCPCS: 70450; 70496; 70498; 71045; 80053; 83735; 93005; 93010; 99285-25; J0780; J1100; J1200; Q9967

== ENCOUNTER 2022-03-12 11:09 | Emergency (ER) | payer OTHER ==
[~2022-03-12] VITALS: Ht 170.2 cm; Wt 134.0 kg
[2022-03-12] MEDS ORDERED: ZESTRIL40 MG PO (11:25)
[2022-03-12] MEDS ORDERED: ISOSORBIDE MONO30 MG PO (11:26)
[2022-03-12] MEDS ORDERED: BISOPROLOL FUMA10 MG PO (11:28)
[2022-03-12] MEDS ORDERED: STRESS B-COMPL1 EACH PO (11:31)
[2022-03-12] MEDS ORDERED: INDAPAMIDE1.25 MG PO (11:32)
--- NOTE | 2022-03-12 21:28 | EKG ---
[facility] [address] [facility] [place] [address] Signed Normal sinus rhythm Moderate voltage criteria for LVH, may be normal variant ( R in aVL , Ruth product ) Cannot rule out Anterior infarct , age undetermined Abnormal ECG When compared with ECG of 14-DEC-2021 18:32, No significant change was found Confirmed by ZACKERY MOREAU MD ([id number]) on 03/12/2022 9:28:28 PM Electronically Signed By: ZACKERY MOREAU MD 03/12/222127 PATIENT NAME: MONICA TUCKER Electrocardiogram DATE OF : 71 PHYSICIAN: ZACKERY MOREAU MD REPORT #: [id number] REPORT IS CONFIDENTIAL AND NOT TO BE RELEASED WITHOUT AUTHORIZATION
== END 2022-03-12 14:29 | disposition home or self-care (01) ==
LOC: ED 11:09
DX: K21.9 Gastro-esophageal reflux disease without esophagitis (principal); R07.89 Other chest pain; I10 Essential (primary) hypertension; E66.9 Obesity, unspecified; I48.91 Unspecified atrial fibrillation; E11.9 Type 2 diabetes mellitus without complications; Z85.3 Personal history of malignant neoplasm of breast; Z91.048 Other nonmedicinal substance allergy status; Z79.899 Other long term (current) drug therapy; Z79.84 Long term (current) use of oral hypoglycemic drugs; Z79.82 Long term (current) use of aspirin
CPT/HCPCS: 36415; 71045; 71260; 80053; 83735; 84484; 85025; 93005; 93010; 99285-25; Q9967

== ENCOUNTER 2022-12-05 06:05 | Day surgery (SDC) | payer OTHER ==
[~2022-12-05] VITALS: Ht 170.2 cm; Wt 136.3 kg
[~2022-12-05 06:05] MED LIST changes: +ACTOS15 MG; +ALPRAZOLAM OD0.25 MG; +APPLE CIDER VI500 MG PO; +BISOPROLOL FUMA10 MG PO; +CINNAMON500 MG PO; +CYCLOBENZAPRINE10 MG PO; +FLAXSEED OIL1000 M1 PO; +HYDRALAZINE HCL25 MG PO; +INDAPAMIDE1.25 MG PO; +IRON325 M1 PO; +ISOSORBIDE MONO30 MG PO; +METOPROLOL SUC100 MG PO; +MINOXIDIL10 MG PO; +MINOXIDIL2.5 MG PO; +NAPROXEN500 MG PO; +OSTERA TABLET1 EACH; +OZEMPIC2 MG/0.75 SQ; +REPAGLINIDE1 MG PO; +STRESS B-COMPL1 EACH PO; +ZESTRIL40 MG PO
--- NOTE | 2022-12-05 08:03 | NUR ---
12/05/22 0803 Shira Downey 1541-PATIENT ARRIVED TO PACU ON 10L MASK ORAL AIRWAY IN PLACE RR EVEN. PATIENT LAYING LEFT LATERAL. PATIENT OPENS EYES LIFTING HEAD AND OPENS MOUTH ORAL AIRWAY REMOVED. DOZES BACK TO SLEEP. 6L MASK RR EVEN. ABDOMEN ROUND AND SOFT. IVF INFUSING.SR
--- NOTE | 2022-12-05 08:44 | NUR ---
PT ALERT, ORIENTED AND TALKING ON PHONE. PT WAS NOT HAVING A POSITIVE EXPERIENCE-REFERRED TO HER EXPERIENCE BEING IN A "TORTURE CHAMBER" HER WORDS. HER BED WAS UNCOMFORTABLE AND SHE WAS COLD.CHITRA RAYMUNDO WILL WILL RESPOND.
--- NOTE | 2022-12-05 08:59 | OR ---
[facility] [address] [place], [place] [address] Signed DATE OF OPERATION: 12/05/2022 SURGEON: Hannah Huang MD PREOPERATIVE DIAGNOSIS: Screening. POSTOPERATIVE DIAGNOSES: 1. 4 mm polyp at 10 cm in the rectum. 2. 4 mm polyp at 45 cm in left colon. 3. Minimal to moderate left-sided diverticulosis. PROCEDURE: Colonoscopy with hot biopsy. ESTIMATED BLOOD LOSS: None. INDICATIONS: Monica is a 47-year-old obese female with significant past medical history. She was sent to me for her initial screening colonoscopy. There is no family history of colon cancer or polyps. She has no lower GI complaints. She reminded me in the office that I helped her disabled son with both upper and lower endoscopy in the past. Consequently, she is familiar with this process. In the office, I had given her a pamphlet on colonoscopy. She understands the nature of the test. There is risk including, but not limited to gas, bloating, crampy abdominal pain, perforation requiring surgery, and missed diagnosis. She had expressed understanding and wished to proceed. Given her body mass index and a complex past medical history, she requires monitored anesthesia care with propofol infusion. PROCEDURE NOTE: Monica was taken into the endoscopy suite and placed in the left lateral decubitus position. She was given monitored anesthesia care with propofol infusion per our nurse carbon paper coating supervisor. A digital rectal exam was performed and she has a couple of small external anal skin tags. She had good sphincter tone. There were no masses. The adult colonoscope was introduced and advanced all around into the cecum under direct visualization of the camera without difficulty. It took just a little extra propofol to get around into the cecum. Her prep was quite excellent. We could easily see the appendiceal orifice and the ileocecal valve. The scope was then slowly withdrawn. We took pictures throughout for photodocumentation. We removed the two polyps mentioned Electronically Signed By: HANNAH HUANG MD 12/05/22 0859 PATIENT NAME: MONICA TUCKER OPERATIVE REPORT DATE OF : 71 REPORT #: [id number] PHYSICIAN: HANNAH HUANG MD PCP: JENNIFER BATISTA PAC REPORT IS CONFIDENTIAL AND NOT TO BE RELEASED WITHOUT AUTHORIZATION [facility] [address] [place] [id number] Signed above with the help of hot biopsy forceps. We see that she has diverticula in the left and sigmoid colon. They are minimal to moderate in size, few in number, and scattered about. Once in the rectum, the scope had been retroflexed and there was no additional pathology noted above the anal canal. After this, the gas was suctioned out and the colonoscope removed. Monica tolerated the procedure quite well. RECOMMENDATIONS: I will see Monica back in my office in 7 to 14 days to review her results. Hannah Huang MD ALB/MADDYL /[id number] cc: LATRICE Atkins MD Copies: JENNIFER BATISTA ANDREW L MD ~ Electronically Signed By: HANNAH HUANG MD 12/05/22 0859 PATIENT NAME: MONICA TUCKER OPERATIVE REPORT DATE OF : 71 REPORT #: [id number] PHYSICIAN: HANNAH HUANG MD PCP: JENNIFER BATISTA REPORT IS CONFIDENTIAL AND NOT TO BE RELEASED WITHOUT AUTHORIZATION
--- NOTE | 2022-12-06 16:29 | PATH ---
[facility] [address] [facility] [place] [address] Signed SPECIMEN(S): A RECTAL POLYP AT 10 CM SPECIMEN(S): B COLON POLYP AT 45 CM SPECIMEN SOURCE: A. RECTAL POLYP AT 10 CM B. COLON POLYP AT 45 CM CLINICAL HISTORY: Screening. Postop: Polyps, diverticulosis. FINAL PATHOLOGIC DIAGNOSIS: A. Rectal polyp at 10 cm, polypectomy: - Tubular adenoma. - Negative for high-grade dysplasia and malignancy. B. Colon polyp at 45 cm, polypectomy: - Tubular adenoma. - Negative for high-grade dysplasia and malignancy. DF:slc:C2NR MICROSCOPIC EXAMINATION: Histologic sections of all submitted blocks are examined by light microscopy. These findings, together with the gross examination, support the pathologic diagnosis. GROSS DESCRIPTION: A. The specimen, labeled and designated "Teribury, rectal polyp at 10 cm," is received in formalin and consists of one seaman soft tissue fragment, 0.2 cm. Entirely submitted in (A1). B. The specimen, labeled and designated "Teribury, colon polyp at 45 cm," is received in formalin and consists of one seaman soft tissue fragment, 0.3 cm. Entirely submitted in (B1). VB (under the direct supervision of a pathologist) The Gross Description was prepared using a voice recognition system. The report was reviewed for accuracy; however, sound-alike word errors, addition and/or deletions may occur. If there is any question about this report, please contact Client Services. PERFORMING LABORATORY: The technical component was performed by [facility], [address] [place] [id number] (CLIA# [id number]). [facility] PATIENT NAME: MONICA TUCKER PATHOLOGY DATE OF : 71 REPORT #: [id number] PHYSICIAN: [facility] PCP: JENNIFER BATISTA PAC REPORT IS CONFIDENTIAL AND NOT TO BE RELEASED WITHOUT AUTHORIZATION [facility] [address] [place] [address] [facility], [address] [place], [place] [address] [address] (CLIA#: [id number]) Diagnostician: Juan Castelan DO Pathologist Electronically Signed 12/06/2022 Copies: ~ PATIENT NAME: MONICA TUCKER PATHOLOGY DATE OF : 71 REPORT #: [id number] PHYSICIAN: [facility] PCP: JENNIFER BATISTA PAC REPORT IS CONFIDENTIAL AND NOT TO BE RELEASED WITHOUT AUTHORIZATION
== END 2022-12-05 08:55 | disposition home or self-care (01) ==
LOC: OPS 06:05 → DS 06:05 → OPS 07:30
PROVIDERS: ATTEND Colon & Rectal Surgery
PROC: 0DBP8ZX Excision of Rectum, Via Natural or Artificial Opening Endoscopic, Diagnostic (ICD-10-PCS; 2022-12-05)
PROC: 0DBG8ZX Excision of Left Large Intestine, Via Natural or Artificial Opening Endoscopic, Diagnostic (ICD-10-PCS; principal; 2022-12-05 07:30)
DX: Z12.11 Encounter for screening for malignant neoplasm of colon (principal); D12.8 Benign neoplasm of rectum; D12.4 Benign neoplasm of descending colon; K57.30 Diverticulosis of large intestine without perforation or abscess without bleeding; I10 Essential (primary) hypertension; G47.33 Obstructive sleep apnea (adult) (pediatric); E11.9 Type 2 diabetes mellitus without complications; G47.419 Narcolepsy without cataplexy; I77.810 Thoracic aortic ectasia; F17.200 Nicotine dependence, unspecified, uncomplicated; E66.9 Obesity, unspecified; Z68.42 Body mass index [BMI] 45.0-49.9, adult; Z79.899 Other long term (current) drug therapy; Z79.82 Long term (current) use of aspirin; Z79.84 Long term (current) use of oral hypoglycemic drugs
CPT/HCPCS: 00811; J2704; J7121

== ENCOUNTER 2023-08-06 20:46 | Emergency (ER) | payer OTHER | END 2023-08-06 23:30 | disposition home or self-care (01) | LOC: ED 20:46 | DX: I10 Essential (primary) hypertension (principal); D64.9 Anemia, unspecified; E83.42 Hypomagnesemia; E66.9 Obesity, unspecified; E11.9 Type 2 diabetes mellitus without complications; Z68.42 Body mass index [BMI] 45.0-49.9, adult; Z91.09 Other allergy status, other than to drugs and biological substances; Z79.84 Long term (current) use of oral hypoglycemic drugs; Z79.82 Long term (current) use of aspirin; Z79.899 Other long term (current) drug therapy ==

== ENCOUNTER 2023-11-03 01:53 | Emergency (ER) | payer OTHER ==
[~2023-11-03] VITALS: Ht 170.2 cm; Wt 142.0 kg
[~2023-11-03 01:53] MED LIST changes: +FERROUS SULFAT325 MG PO; +MAGNESIUM OXID400 M1 PO
--- OUTSIDE RECORDS SUMMARY | 2023-11-03 01:56 | XMS ---
PreManage Notification: MONICA TUCKER Security Transit Planning Manager Events No recent Security Events currently on file CRITERIA MET - PDMP CARE PROVIDERS JENNIFER BATISTA Physician Mailroom Messenger 10/18/2021-Current PHONE: Unknown Giselle has no Care Guidelines for this patient. EMeghan VISIT COUNT (12 MO.) 3 [facility] TOTAL 3 NOTE: Visits indicate total known visits. ED/UCC VISIT TRACKING (12 MO.) 11/03/2023 01:53 [facility] TYPE: Emergency COMPLAINT: - CHEST PAIN 08/06/2023 20:46 [facility] TYPE: Emergency COMPLAINT: - DIZZINESS DIAGNOSES: - Anemia, unspecified - Body mass index [BMI] 45.0-49.9, adult - Elevated blood-pressure reading, without diagnosis of hypertension - Essential (primary) hypertension - Hypomagnesemia - superintendent container terminal (current) use of aspirin - superintendent container terminal (current) use of oral hypoglycemic drugs - Obesity, unspecified - Other allergy status, other than to drugs and biological substances - Other shelter (current) drug therapy - Type 2 diabetes mellitus without complications 01/07/2023 15:08 [facility] TYPE: Emergency COMPLAINT: - CHEST PAIN DIAGNOSES: - Dorsalgia, unspecified - Essential (primary) hypertension - superintendent container terminal (current) use of aspirin - superintendent container terminal (current) use of oral hypoglycemic drugs - Obesity, unspecified - Other chest pain - Other termite inspector (current) drug therapy - Other nonmedicinal substance allergy status - Type 2 diabetes mellitus without complications INPATIENT VISIT TRACKING (12 MO.) No inpatient visits to display in this time frame [email or web address]
[2023-11-03 02:14] LABS: BASOPHILS 0.5 % (0-2); HEMATOCRIT 37.3 % (35.0-50.0); HEMOGLOBIN 12.2 g/dL (12.0-18.0); LYMPHOCYTES 22.2 % (24-44); MCH 27.6 (27-36); MCHC 32.8 g/dl (30-36); MCV 84.4 fl (81-99); NEUTROPHILS 65.3 % (39-80); PLATELET COUNT 336 K/uL (140-440); RBC 4.42 M/ul (4.3-5.7); RDW 16.8 (10.5-15.0)
[2023-11-03 02:40] LABS: ALBUMIN 3.3 g/dL (3.4-5.0); ALBUMIN/GLOBULIN RATIO 0.79 (1.1-2.4); ANION GAP 11.9 (7-21); BILIRUBIN, TOTAL 0.3 ng/dL (0.2-1.0); BUN/CREATININE RATIO 16.21 (6.0-28.6); CALCIUM 9.8 mg/dL (8.5-10.1); CREATININE, SERUM 0.74 mg/dL (0.55-1.02); POTASSIUM 3.9 mmol/L (3.5-5.1); PROTEIN, TOTAL 7.5 g/dL (6.4-8.2)
[2023-11-03 02:47] LABS: INR 0.96 (0.80-1.30); PROTIME 12.1 Sec (11.2-14.2)
[2023-11-03 05:29] VITALS: BP 143/90
--- NOTE | 2023-11-03 12:36 | EKG ---
[facility] [address] [facility] [place] [address] Signed Normal sinus rhythm Moderate voltage criteria for LVH, may be normal variant ( R in aVL , Stanley product ) Cannot rule out Anterior infarct , age undetermined Abnormal ECG When compared with ECG of 07-JAN-2023 15:10, Nonspecific T wave abnormality, improved in Anterolateral leads Confirmed by CARLA GALAN MD ([id number]) on 11/03/2023 12:36:41 PM Electronically Signed By: CARLA GALAN 11/03/23 1236 PATIENT NAME: MONICA TUCKER Electrocardiogram DATE OF : 71 PHYSICIAN: CARLA GALAN REPORT #: [id number] REPORT IS CONFIDENTIAL AND NOT TO BE RELEASED WITHOUT AUTHORIZATION
== END 2023-11-03 05:33 | disposition home or self-care (01) ==
LOC: ED 01:53
PROVIDERS: Family Medicine
DX: R07.89 Other chest pain (principal); I10 Essential (primary) hypertension; E66.9 Obesity, unspecified; E11.9 Type 2 diabetes mellitus without complications; Z91.09 Other allergy status, other than to drugs and biological substances; Z79.899 Other long term (current) drug therapy; Z79.82 Long term (current) use of aspirin
CPT/HCPCS: 36415; 71045; 71275; 80053; 83735; 83880; 84484; 85025; 85379; 85610; 93005; 93010; A9270; J2270; Q9967

== ENCOUNTER 2024-07-02 17:53 | Emergency (ER) | payer OTHER ==
[~2024-07-02] VITALS: Ht 170.2 cm; Wt 144.7 kg
[~2024-07-02 17:53] MED LIST changes: +BACTRIM DS TAB1 EACH PO; +FUROSEMIDE20 MG PO; +K-TAB ER20 MEQ PO; +PREDNISONE20 MG PO; +TRIAMCINOLONE A15 G1 TOP
[2024-07-02 22:32] LABS: RDW 15.2 (10.5-15.0)
[2024-07-02 22:32] LABS: BILIRUBIN, URINE NEGATIVE (negative); BLOOD/HGB, URINE NEGATIVE (Negative); KETONE, URINE NEGATIVE (Negative); LEUK ESTERASE, URINE TRACE (negative); NITRITE, URINE NEGATIVE (negative)
[2024-07-02 22:35] LABS: BASOPHILS 1.4 % (0-2); EOSINOPHILS 5.3 % (0-6); HEMATOCRIT 37.9 % (35.0-50.0); HEMOGLOBIN 12.3 g/dL (12.0-18.0); LYMPHOCYTES 35.8 % (24-44); MCHC 32.4 g/dl (30-36); MCV 89.5 fl (81-99); MONOCYTES 7.3 % (0-12); NEUTROPHILS 50.2 % (39-80); PLATELET COUNT 262 K/uL (140-440); RBC 4.24 M/ul (4.3-5.7)
[2024-07-02 22:37] LABS: BACTERIA, URINE RARE /hpf (negative); CASTS, URINE NONE SEEN \\lpf; COLLECTION TYPE, URINE CLEAN CATCH; CRYSTALS, URINE NONE SEEN (0-1+); EPITHELIAL CELLS, URINE SQUAMOUS 1+ /lpf (0-1+); RED BLOOD CELLS, URINE 0-1 /hpf (0-5); REFLEX CULTURE, URINE Yes (No)
[2024-07-02 22:46] LABS: ALBUMIN 3.9 g/dL (3.4-5.0); ALBUMIN/GLOBULIN RATIO 1.08 (1.1-2.4); ANION GAP 12.1 (7-21); BILIRUBIN, TOTAL 0.3 ng/dL (0.2-1.0); BUN/CREATININE RATIO 20.45 (6.0-28.6); CALCIUM 10.3 mg/dL (8.5-10.1); CREATININE, SERUM 0.88 mg/dL (0.55-1.02); POTASSIUM 4.1 mmol/L (3.5-5.1); PROTEIN, TOTAL 7.5 g/dL (6.4-8.2)
[2024-07-02] MEDS ORDERED: HYDROCODONE BIT/ACETAMINOPHEN 5/325 MG 1 TAB HOME.PACK PO PRN (23:45)
[2024-07-02] MEDS ORDERED: CEFTRIAXONE/SODIUM CHLORIDE 2 GM/100 ML PIGGYBACK IV ONE (23:45)
[2024-07-02] MEDS ORDERED: LEVOFLOXACIN500 MG PO (23:59)
[2024-07-02] MEDS ORDERED: HYDROCODON-ACE1 EA10 PO (23:59)
[2024-07-03 00:10] VITALS: BP 139/73
== END 2024-07-03 00:10 | disposition home or self-care (01) ==
LOC: ED 17:53
PROVIDERS: Emergency Medicine
DX: N20.0 Calculus of kidney (principal); R20.2 Paresthesia of skin; I10 Essential (primary) hypertension; E11.9 Type 2 diabetes mellitus without complications; I48.91 Unspecified atrial fibrillation; E66.9 Obesity, unspecified; Z68.43 Body mass index [BMI] 50.0-59.9, adult; Z79.899 Other long term (current) drug therapy; Z79.84 Long term (current) use of oral hypoglycemic drugs; Z79.82 Long term (current) use of aspirin
CPT/HCPCS: 36415; 74177; 80053; 81001; 85025; 87088; 99284-25; A9270; J0696; Q9967

== ENCOUNTER 2024-09-09 16:12 | Emergency (ER) | payer OTHER ==
[~2024-09-09] VITALS: Ht 170.2 cm; Wt 140.0 kg
[~2024-09-09 16:12] MED LIST changes: +LEVOFLOXACIN500 MG PO
[2024-09-09] MEDS ORDERED: SODIUM CHLORIDE 0.9% 1,000 ML IV PRN (16:45)
[2024-09-09] MEDS ORDERED: MOUNJARO7.5 MG/0.5 SUB-Q (16:45)
[2024-09-09] MEDS ORDERED: CEFTRIAXONE/SODIUM CHLORIDE 2 GM/100 ML PIGGYBACK IV ONE (16:45)
[2024-09-09 17:08] LABS: BASOPHILS 1.2 % (0-2); EOSINOPHILS 4.3 % (0-6); HEMATOCRIT 34.2 % (35.0-50.0); HEMOGLOBIN 11.3 g/dL (12.0-18.0); LYMPHOCYTES 21.1 % (24-44); MCH 29.4 (27-36); MCHC 32.9 g/dl (30-36); MCV 89.4 fl (81-99); MONOCYTES 8.5 % (0-12); NEUTROPHILS 64.9 % (39-80); PLATELET COUNT 231 K/uL (140-440); RBC 3.83 M/ul (4.3-5.7); RDW 15.6 (10.5-15.0)
[2024-09-09] MEDS ORDERED: KETOROLAC TROMETHAMINE 15 MG/ML VIAL IV ONE (17:15)
[2024-09-09 17:17] LABS: ANION GAP 12.5 (7-21); BUN/CREATININE RATIO 17.8 (6.0-28.6); CALCIUM 9.3 mg/dL (8.5-10.1); CREATININE, SERUM 0.73 mg/dL (0.55-1.02); POTASSIUM 3.5 mmol/L (3.5-5.1)
[2024-09-09] MEDS ORDERED: NAPROSYN500 MG PO (17:28)
[2024-09-09] MEDS ORDERED: CEPHALEXIN500 M1 PO (17:28)
[2024-09-09] MEDS ORDERED: ACETAMINOPHEN 500 MG TAB PO ONE (17:30)
[2024-09-09] MEDS ORDERED: HYDROCODONE/ACETA 5/325 TAB PO ONE (18:15)
[2024-09-09 18:24] VITALS: BP 140/89
[2024-09-10] MEDS ORDERED: HYDROCODON-ACE1 EA10 PO (18:19)
== END 2024-09-09 18:25 | disposition home or self-care (01) ==
LOC: ED 16:12
PROVIDERS: Emergency Medicine
DX: L03.115 Cellulitis of right lower limb (principal); I10 Essential (primary) hypertension; I48.91 Unspecified atrial fibrillation; E11.9 Type 2 diabetes mellitus without complications; E66.9 Obesity, unspecified; Z68.42 Body mass index [BMI] 45.0-49.9, adult; Z91.048 Other nonmedicinal substance allergy status; Z79.84 Long term (current) use of oral hypoglycemic drugs; Z79.82 Long term (current) use of aspirin; Z79.899 Other long term (current) drug therapy
CPT/HCPCS: 36415; 73630; 80048; 85025; 96365; 96375; 99283-25; A9270; J0696; J1885; J7030

== ENCOUNTER 2024-09-10 16:58 | Emergency (ER) | payer OTHER ==
[~2024-09-10] VITALS: Ht 170.2 cm; Wt 146.0 kg
[~2024-09-10 16:58] MED LIST changes: +CEPHALEXIN500 M1 PO; +MOUNJARO7.5 MG/0.5 SUB-Q
--- OUTSIDE RECORDS SUMMARY | 2024-09-10 17:04 | XMS ---
PreManage Notification: MONICA TUCKER Security Snagger Events No recent Security Events currently on file CRITERIA MET - [facility] - 2 Visits in 30 Days CARE PROVIDERS JENNIFER BATISTA I. Physician Tile Ditcher 10/18/2021-Current PHONE: [phone] Giselle has no Care Guidelines for this patient. Dereck VISIT COUNT (12 MO.) 7 [facility] TOTAL 7 NOTE: Visits indicate total known visits. ED/UCC VISIT TRACKING (12 MO.) 09/10/2024 16:58 [facility] TYPE: Emergency COMPLAINT: - FOOT INFECTION 09/09/2024 16:13 [facility] TYPE: Emergency COMPLAINT: - FOOT PAIN 07/02/2024 17:54 [facility] TYPE: Emergency COMPLAINT: - LEG NUMBNESS DIAGNOSES: - Body mass index [BMI] 50.0-59.9, adult - Calculus of kidney - Essential (primary) hypertension - intermodal owner operator truck driver (current) use of aspirin - half-way (current) use of oral hypoglycemic drugs - Low back pain, unspecified - Obesity, unspecified - Other assisted (current) drug therapy - Paresthesia of skin - Type 2 diabetes mellitus without complications - Unspecified atrial fibrillation 04/12/2024 02:47 [facility] TYPE: Emergency COMPLAINT: - LT SIDE BREAST PAIN DIAGNOSES: - Body mass index [BMI] 50.0-59.9, adult - Essential (primary) hypertension - half-way (current) use of aspirin - half-way (current) use of oral hypoglycemic drugs - Mastitis without abscess - Mastodynia - Obesity, unspecified - Other assisted (current) drug therapy - Other nonmedicinal substance allergy status - Type 2 diabetes mellitus without complications 01/22/2024 09:31 [facility] TYPE: Emergency COMPLAINT: - SOB, CHEST PAIN DIAGNOSES: - Essential (primary) hypertension - intermodal owner operator truck driver (current) use of oral hypoglycemic drugs - Obesity, unspecified - Other exterminator helper (current) drug therapy - Other nonmedicinal substance allergy status - Shortness of breath - Type 2 diabetes mellitus without complications 01/11/2024 20:13 [facility] TYPE: Emergency COMPLAINT: - FLU SUMPTOMPS DIAGNOSES: - Alkalosis - Body mass index [BMI] 45.0-49.9, adult - Calculus of kidney - Dependence on other enabling machines and devices - Essential (primary) hypertension - Fatty (change of) liver, not elsewhere classified - Headache, unspecified - intermodal owner operator truck driver (current) use of aromatase inhibitors - intermodal owner operator truck driver (current) use of aspirin - intermodal owner operator truck driver (current) use of oral hypoglycemic drugs - Long-term (current) use of injectable non-insulin antidiabetic drugs - Nausea with vomiting, unspecified - Obesity, unspecified - Other exterminator helper (current) drug therapy - Other nonmedicinal substance allergy status - Type 2 diabetes mellitus without complications - Unspecified atrial fibrillation - Viral infection, unspecified 11/03/2023 01:[address] [facility] [place] TYPE: Emergency COMPLAINT: - CHEST PAIN DIAGNOSES: - Chest pain, unspecified - Essential (primary) hypertension - half-way (current) use of aspirin - Obesity, unspecified - Other allergy status, other than to drugs and biological substances - Other chest pain - Other assisted (current) drug therapy - Type 2 diabetes mellitus without complications INPATIENT VISIT TRACKING (12 MO.) No inpatient visits to display in this time frame [email or web address]
[2024-09-10] MEDS ORDERED: HYDROCODONE/ACETA 7.5/325 TAB PO ONE (18:15)
[2024-09-10] MEDS ORDERED: ACETAMINOPHEN 325 MG TAB PO ONE (18:15)
[2024-09-10] MEDS ORDERED: HYDROCODON-ACE1 EA10 PO (18:19)
[2024-09-10 18:28] VITALS: BP 141/87
== END 2024-09-10 18:25 | disposition home or self-care (01) ==
LOC: ED 16:58
DX: L03.115 Cellulitis of right lower limb (principal); R10.9 Unspecified abdominal pain; T39.315A Adverse effect of propionic acid derivatives, initial encounter; I10 Essential (primary) hypertension; I48.91 Unspecified atrial fibrillation; E11.9 Type 2 diabetes mellitus without complications; E66.9 Obesity, unspecified; Z68.43 Body mass index [BMI] 50.0-59.9, adult; Z91.048 Other nonmedicinal substance allergy status; Z79.2 Long term (current) use of antibiotics; Z79.1 Long term (current) use of non-steroidal anti-inflammatories (NSAID); Z79.899 Other long term (current) drug therapy; Z79.84 Long term (current) use of oral hypoglycemic drugs; Z79.82 Long term (current) use of aspirin; Z79.85 Long-term (current) use of injectable non-insulin antidiabetic drugs
CPT/HCPCS: 99283; A9270

== ENCOUNTER 2024-09-19 16:44 | Emergency (ER) | payer OTHER ==
[~2024-09-19] VITALS: Ht 170.2 cm; Wt 148.0 kg
--- OUTSIDE RECORDS SUMMARY | 2024-09-19 16:51 | XMS ---
PreManage Notification: MONICA TUCKER Security Type Mapper Events No recent Security Events currently on file CRITERIA MET - [facility] - 2 Visits in 30 Days CARE PROVIDERS JENNIFER BATISTA I. Physician General Dentist/Owner 10/18/2021-Current PHONE: [phone] Giselle has no Care Guidelines for this patient. Dereck VISIT COUNT (12 MO.) 8 [facility] TOTAL 8 NOTE: Visits indicate total known visits. ED/UCC VISIT TRACKING (12 MO.) 09/19/2024 16:45 [facility] TYPE: Emergency COMPLAINT: - EXTREMITY PAIN 09/10/2024 16:[address] [facility] [place] TYPE: Emergency COMPLAINT: - FOOT INFECTION DIAGNOSES: - Adverse effect of propionic acid derivatives, initial encounter - Body mass index [BMI] 50.0-59.9, adult - Cellulitis of right lower limb - Essential (primary) hypertension - ferry terminal agent (current) use of antibiotics - ferry terminal agent (current) use of aspirin - detention (current) use of non-steroidal anti-inflammatories (NSAID) - ferry terminal agent (current) use of oral hypoglycemic drugs - Long-term (current) use of injectable non-insulin antidiabetic drugs - Obesity, unspecified - Other alf (current) drug therapy - Other nonmedicinal substance allergy status - Pain in right foot - Type 2 diabetes mellitus without complications - Unspecified abdominal pain - Unspecified atrial fibrillation 09/09/2024 16:13 [facility] TYPE: Emergency COMPLAINT: - FOOT PAIN DIAGNOSES: - Body mass index [BMI] 45.0-49.9, adult - Cellulitis of right lower limb - Essential (primary) hypertension - detention (current) use of aspirin - detention (current) use of oral hypoglycemic drugs - Obesity, unspecified - Other intermission coordinator (current) drug therapy - Other nonmedicinal substance allergy status - Pain in right foot - Type 2 diabetes mellitus without complications - Unspecified atrial fibrillation 07/02/2024 17:54 [facility] TYPE: Emergency COMPLAINT: - LEG NUMBNESS DIAGNOSES: - Body mass index [BMI] 50.0-59.9, adult - Calculus of kidney - Essential (primary) hypertension - detention (current) use of aspirin - detention (current) use of oral hypoglycemic drugs - Low back pain, unspecified - Obesity, unspecified - Other alf (current) drug therapy - Paresthesia of skin - Type 2 diabetes mellitus without complications - Unspecified atrial fibrillation 04/12/2024 02:47 [facility] TYPE: Emergency COMPLAINT: - LT SIDE BREAST PAIN DIAGNOSES: - Body mass index [BMI] 50.0-59.9, adult - Essential (primary) hypertension - detention (current) use of aspirin - ferry terminal agent (current) use of oral hypoglycemic drugs - Mastitis without abscess - Mastodynia - Obesity, unspecified - Other intermission coordinator (current) drug therapy - Other nonmedicinal substance allergy status - Type 2 diabetes mellitus without complications 01/22/2024 09:31 [facility] TYPE: Emergency COMPLAINT: - SOB, CHEST PAIN DIAGNOSES: - Essential (primary) hypertension - ferry terminal agent (current) use of oral hypoglycemic drugs - Obesity, unspecified - Other intermission coordinator (current) drug therapy - Other nonmedicinal substance [...] not elsewhere classified - Headache, unspecified - ferry terminal agent (current) use of aromatase inhibitors - ferry terminal agent (current) use of aspirin - detention (current) use of oral hypoglycemic drugs - Long-term (current) use of injectable non-insulin antidiabetic drugs - Nausea with vomiting, unspecified - Obesity, unspecified - Other alf (current) drug therapy - Other nonmedicinal substance allergy status - Type 2 diabetes mellitus without complications - Unspecified atrial fibrillation - Viral infection, unspecified 11/03/2023 01:[address] [facility] [place] TYPE: Emergency COMPLAINT: - CHEST PAIN DIAGNOSES: - Chest pain, unspecified - Essential (primary) hypertension - ferry terminal agent (current) use of aspirin - Obesity, unspecified - Other allergy status, other than to drugs and biological substances - Other chest pain - Other intermission coordinator (current) drug therapy - Type 2 diabetes mellitus without complications INPATIENT VISIT TRACKING (12 MO.) No inpatient visits to display in this time frame [email or web address]
[2024-09-19] MEDS ORDERED: OXYCODONE/APAP 5/325 TAB PO ONE (17:00)
[2024-09-19] MEDS ORDERED: PERCOCET 5-3251 EACH PO (19:32)
[2024-09-19 19:45] VITALS: BP 156/90
[2024-09-19] MEDS ORDERED: OXYCODONE/ACETAMINOPHEN 1 TAB HOME.PACK PO ONE (19:45)
== END 2024-09-19 19:45 | disposition home or self-care (01) ==
LOC: ED 16:44
DX: S82.851A Displaced trimalleolar fracture of right lower leg, initial encounter for closed fracture (principal); S52.571A Other intraarticular fracture of lower end of right radius, initial encounter for closed fracture; S52.511A Displaced fracture of right radial styloid process, initial encounter for closed fracture; S52.614A Nondisplaced fracture of right ulna styloid process, initial encounter for closed fracture; I10 Essential (primary) hypertension; I48.91 Unspecified atrial fibrillation; E11.9 Type 2 diabetes mellitus without complications; E66.9 Obesity, unspecified; Z68.43 Body mass index [BMI] 50.0-59.9, adult; Z91.048 Other nonmedicinal substance allergy status; Z79.899 Other long term (current) drug therapy; Z79.85 Long-term (current) use of injectable non-insulin antidiabetic drugs; Z79.84 Long term (current) use of oral hypoglycemic drugs; Z79.82 Long term (current) use of aspirin; W01.0XXA Fall on same level from slipping, tripping and stumbling without subsequent striking against object, initial encounter
CPT/HCPCS: 29125; 29515; 73110; 73610; 99283-25

== ENCOUNTER 2024-09-25 06:32 | Inpatient (IN) | payer OTHER ==
[2024-09-21 15:10] VITALS: BP 169/109
[2024-09-25] VITALS (11 sets, daily range): BP systolic 14–160; BP diastolic 52–100
[~2024-09-25] VITALS: Ht 170.2 cm
[~2024-09-25 06:32] MED LIST changes: +ADULT LOW DOSE81 MG PO; -ALL DAY ALLERGY10 M3 PO; +ALL DAY ALLERGY10 MG PO; -ASPIRIN81 MG PO; +CATAPRES-TTS 31 EACH TD; -CLONIDINE1 EAC2 TD; +LACTATED RINGER'S 1,000 ML IV SCH; -OSTERA TABLET1 EACH; +PERCOCET 5-3251 EACH PO; +VITAMIN D325 MCG PO
[2024-09-25] MEDS ORDERED: CEFAZOLIN SODIUM 3 GM/30 ML SYR IV SCH (07:00)
[2024-09-25] MEDS ORDERED: IBLOOD GLUCOSE TEST STRIP 1 EA TEST VI PRN ×2 (07:00→09:30)
[2024-09-25] MEDS ORDERED: GABAPENTIN 600 MG TAB PO SCH (07:00)
[2024-09-25] MEDS ORDERED: LIDOCAINE HCL 1% 5 ML SDV INJ ONE (07:00)
[2024-09-25] MEDS ORDERED: DEXAMETHASONE SOD PHOS 4 MG/ML VIAL ONE (07:24)
[2024-09-25] MEDS ORDERED: dexmedeTOMIDine HCl 200 MCG/2 ML VIAL ONE (07:24)
[2024-09-25] MEDS ORDERED: SODIUM CHLORIDE 0.9% 40 ML IV ONE (07:24)
[2024-09-25] MEDS ORDERED: LIDOCAINE HCL 2% 5 ML SDV ONE (07:24)
[2024-09-25] MEDS ORDERED: Ropivacaine HCl 0.5% 30 ML VIAL ONE (07:24)
[2024-09-25] MEDS ORDERED: MIDAZOLAM HCL 2 MG/2 ML VIAL ONE (07:24)
[2024-09-25 07:30] LABS: ALBUMIN 3.4 g/dL (3.4-5.0); ALBUMIN/GLOBULIN RATIO 0.83 (1.1-2.4); ANION GAP 11.4 (7-21); BILIRUBIN, TOTAL 0.4 ng/dL (0.2-1.0); BUN/CREATININE RATIO 18.91 (6.0-28.6); CALCIUM 9.8 mg/dL (8.5-10.1); CREATININE, SERUM 0.74 mg/dL (0.55-1.02); POTASSIUM 3.4 mmol/L (3.5-5.1); PROTEIN, TOTAL 7.5 g/dL (6.4-8.2)
[2024-09-25] MEDS ORDERED: propofoL 200 MG/20 ML VIAL ONE (08:03)
[2024-09-25] MEDS ORDERED: ondansetron HCL 4 MG/2 ML VIAL ONE (08:03)
[2024-09-25] MEDS ORDERED: OXYCODONE HCL 5 MG TAB PO PRN (08:45)
[2024-09-25] MEDS ORDERED: fentaNYL citrate 100 MCG/2 ML VIAL ONE (09:06)
--- NOTE | 2024-09-25 09:17 | NUR ---
0850-PT ARRIVED BACK TO DS ON RA, AAOX3, ANSWERING QUESTIONS APPROPRIATELY AND ABLE TO MAKE HER NEEDS KNOWN. VS TAKEN. LLE NOTED TO BE ELEVATED WITH ICE IN PLACE TO SURGICAL SITES. PT ALSO WITH WALKING BOOT IN PLACE TO LLE. SURGICAL DRSG VISUALIZED WITH TAILINGS DAM LABORER AND APPEARS CDI. IV SITE ASSESSED, PATENT, AND INFUSING LR PER ORDERS. REPORT RECEIVED FROM TAILINGS DAM LABORER. PT DENIES NAUSEA WHEN ASKED AND REPORTS PAIN TOLERABLE TO LLE AT 5/10, HOWEVER PT REPORTS THIS TO BE ON THE HIGHER END OF TOLERABLE. PT PROVIDED WITH ICE WATER, CRACKERS, AND PUDDING. PT GIVEN PHONE FROM HER PERSONAL BELONINGS AT HER REQUEST. PT CALLED HER MOTHER AND HER FRIEND AND CHATTED SHORTLY. CMS REMAINS INTACT TO LLE. ALL QUESTIONS ANSWERED. BED IN LOW POSITION, WHEELS LOCKED, BILAT RAILS IN PLACE FOR SAFETY, AND CALL LIGHT WITHIN PT REACH. 0910-PT PROVIDED ADDITIONAL PUDDINGS AT HER REQUEST. PT CONT TO DENY ANY NAUSEA. PT REPORTS PAIN IN LLE TO BE A 5-6 OUT OF 10. DISCUSSED AVAILABLE PAIN MEDICATION OPTIONS AND PT AMENABLE TO TRY ORAL NORCO DOSE. 0913-PO PAIN MEDS GIVEN PER ORDERS FOR C/O PAIN IN LLE ANKLE OF 5-6/10. 0915-IVF COMPLETED. IV SL'D. PTS ICE WATER REFILLED AND ASSISTED PT IN REPORTIONING LLE FOR COMFORT. LLE REMAINS ELEVATED AND WITH ICE IN PLACE TO SURGICAL SITE. PT RESTING WITH EYES CLOSED. BREATHING APPEARS EVEN AND UNLABORED. CALL LIGHT WITHIN PT REACH. BED IN LOW POSITION, WHEELS LOCKED, BILAT RAILS IN PLACE. PERSONAL BELONINGS AND FLUIDS AT BEDSIDE WITHIN PT REACH.
[2024-09-25] MEDS ORDERED: ePHEDrine sulfate 50 MG/ML AMP ONE (09:28)
[2024-09-25] MEDS ORDERED: HYDROmorphone HCL 1 MG/ML SYR IV PRN ×2 (09:30→23:45)
[2024-09-25] MEDS ORDERED: ondansetron HCL 4 MG/2 ML VIAL IV PRN (09:30)
[2024-09-25] MEDS ORDERED: PROCHLORPERAZINE EDISYLATE 10 MG/2 ML VIAL IV PRN (09:30)
[2024-09-25] MEDS ORDERED: droPERidol 5 MG/2 ML VIAL IV PRN (09:30)
[2024-09-25] MEDS ORDERED: NALOXONE HCL 0.4 MG SYR IV PRN (09:30)
[2024-09-25] MEDS ORDERED: fentaNYL citrate 50 MCG/ML SDV IV PRN (09:30)
[2024-09-25] MEDS ORDERED: KETOROLAC TROMETHAMINE 30 MG/ML VIAL ONE (10:43)
--- NOTE | 2024-09-25 10:57 | NUR ---
09/25/24 1057 Aisha Merchant 1039-PT ARRIVES TO PACU RESTING SEMI FOWLERS, PT NOT RESPONSIVE TO VERBAL OR TACTILE STIMULI, VSS ON 6L VIA MASK, RR EVEN AND UNLABORED.
--- NOTE | 2024-09-25 11:58 | NUR ---
Patient returns to room 4 from PACU. report taken from CHITRA Leonard. patient reports minimal pain to rt ankle and no pain to rt wrist. she states that she has to urinate again. bedpan placed under patient. vital signs obtained and wdl. She denies any nausea. water and light snack provided. patient denies any needs at this time. bed in lowest position. call light within reach.
--- NOTE | 2024-09-25 12:54 | NUR ---
HOURLY ROUNDING ON PATIENT. SHE REPORTS HER PAIN IN HER ANKLE A 3/10. SOME ACTIVE BLEEDING NOTED TO RT LATERAL ANKLE SURGICAL SITE. ALLEVYN DRESSING PLACED IN THE CORRECT SPOT AND TARAN BANDAGE REPLACED. PATIENT REPORTS THAT SHE IS TIRED AND FALLS ASLEEP DURING QUESTIONS. SHE WAKES EASILY TO VERBAL STIMULI. INCENTIVE SPIROMETER GIVEN TO PATIENT AND INSTRUCTED ON USE. VITAL SIGNS OBTAINED AND WDL. SHE DENIES NAUSEA. INFORMED PATIENT THAT WE WILL BE GOING TO HER NEW ROOM SHORTLY. SHE DENIES ANY NEEDS AT THIS TIME. BED IN LOWEST POSITION. CALL LIGHT WITHIN REACH.
--- NOTE | 2024-09-25 13:17 | NUR ---
Patient taken to room 119 via hosptial bed. report given to CHITRA Cervantes. All questions answered.
--- NOTE | 2024-09-25 13:19 | NUR ---
PT ARRIVED TO FLOOR VIA BED FROM PACU AT ABOUT 1310. PT IS VERY DROWSY, AWAKENS WHEN CONVERSING BUT QUICKLY DRIFTS BACK TO SLEEP. SATS UPON ARRIVING WHEN SLEEPING DIPPED DOWN TO 84%, OXYGEN APPLIED AT 3L PER NC TO KEEP SATS >90% WHILE SLEEPING. HOME CPAP MACHINE PRESENT AT BEDSIDE, RT NOTIFIED TO ASSESS/SETUP FOR PATIENT WHILE HOSPITALIZED. IV TO (L) INTACT, FLUSHES WELL, NO SIGNS OF INFILTRATION, NO PAIN REPORTED BY PATIENT. (R) HAND DRESSING IS CDI, BRACE IN PLACE. (R) ANKLE DRESSING IS CDI, ICE PACK IN PLACE A THIS TIME. (R) FOOT WARM, PT REPORTS STILL NUMB UNABLE TO FEEL TOUCH FROM NERVE BLOCK AT THIS TIME. SCD IN PLACE TO (L) LEG WITH PUMP. PT DENIES PAIN AT THIS TIME. CALL LIGHT WITHIN REACH, VS STABLE. PT VERY DROWSY SO ALLOWED TO REST. ICE WATER PRESENT AT BEDSIDE. BED ALARM IN PLACE.
--- NOTE | 2024-09-25 14:16 | NUR ---
PT IS STILL VERY DROWSY, SHE AWAKENS AND RESPONDS BUT QUICKLY FALLS BACK ASLEEP. DRESSING TO (R) WRIST/ANKLE ARE CDI. BOTH ARE WARM, DENIES SENSATION STILL TO BOTH SITES. PAIN IS CONTROLLED, DENIES PAIN CURRENTLY, STATES SHE FEELS VERY DRUGGED UP. CPOX REMAINS IN PLACE WITH OXYGEN TO KEEP SATS>90 WHILE SLEEPING. RT PRESENT AND SETUP HOME CPAP MACHINE IF NEEDED. CALL LIGHT WITHIN REACH.
[2024-09-25] MEDS ORDERED: GLUCAGON,HUMAN RECOMBINANT 1 MG/ML VIAL SUB-Q PRN (15:30)
[2024-09-25] MEDS ORDERED: DEXTROSE 50% 50 ML SYR IV PRN ×2 (15:30)
[2024-09-25] MEDS ORDERED: DEXTROSE 5% 1,000 ML IV PRN (15:30)
[2024-09-25] MEDS ORDERED: IBLOOD GLUCOSE TEST STRIP 1 EA TEST XX PRN (15:30)
--- NOTE | 2024-09-25 15:47 | NUR ---
VS RECORDED. PT RESTING IN BED WITH HOB ELEVATED, RR EVEN AND UNLABORED WITH SNORE NOTED. NC IN PLACE AT 2L, CPOX AT BEDSIDE. PT HAS NO REQUESTS AT THIS TIME, CALL LIGHT IN REACH.
--- NOTE | 2024-09-25 15:48 | NUR ---
CALL TO MD REGARDING PT EVALUATION WITH PT/OT, SHE IS STAYING OVERNIGHT, PER MD CHANGE TO INPATIENT STATUS THIS TIME. CALL TO CASE MANAGEMENT TO DETERMINE IF INPATIENT STATUS WAS APPROPRIATE FOR THIS PATIENT, PER MILO ORDERS INPUT FOR INPATIENT STATUS DUE TO EXTENT OF INJURY AND INABILITY TO PROVIDE SAFE DISCHARGE WITH WEIGHT BEARING STATUS, WILL NEED FURTHER THERAPY FOR SAFE DISCHARGE. PHYSICAL THERAPY NOTIFIED OF ADMISSION STATUS CHANGE. PER IMAGE CONSULTANT, PT WILL MOST LIKELY NEED SNF DUE TO THE EXTENT OF INJURY, HER ABILITY TO MOVE WITH THE TTWB TO R ANKLE AND NWB STATUS TO R WRIST. ORDERS INPUT WITH FURTHER DISCUSSION WITH BUS COMPANY MANAGER THIS EVENING. DR. VALDIVIA INFORMED ORDERS UPDATED, DID PUT IN HOSPITALIST CONSULT FOR MEDICATION MANAGEMENT FOR CHRONIC MEDICATIONS/CONDITIONS. DR. VALDIVIA AGREES WITH POC AT THIS TIME. PHARMACY CALLED TO DO HOME MEDICATION RECONCILLIATION. PHARMACY NOTIFIED AND THEY ARE CURRENTLY WORKING ON MED RECONCILLIATION.
[2024-09-25] MEDS ORDERED: INDAPAMIDE2.5 MG PO (15:55)
[2024-09-25] MEDS ORDERED: METFORMIN HCL500 M1 PO (15:56)
[2024-09-25] MEDS ORDERED: ESOMEPRAZOLE MA40 MG PO (15:57)
[2024-09-25] MEDS ORDERED: REPAGLINIDE2 MG PO (15:58)
[2024-09-25] MEDS ORDERED: PIOGLITAZONE HC15 MG PO (16:00)
[2024-09-25] MEDS ORDERED: ATORVASTATIN CA80 MG PO (16:01)
[2024-09-25] MEDS ORDERED: VERAPAMIL ER P300 MG PO (16:01)
[2024-09-25] MEDS ORDERED: POTASSIUM CHLO20 ME1 PO (16:02)
[2024-09-25] MEDS ORDERED: SEVOFLURANE 250 ML BTL INH ONE (16:23)
--- NOTE | 2024-09-25 16:52 | NUR ---
PT RESTING AT THIS TIME. HAND/FOOT WARM, PT STILL DENIES PAIN. NUMBNESS NOTED TO BOTH EXTREMITIES STILL. BLOOD SUGAR WNL THIS EVENING. DENIES ANY NEEDS, CALL LIGHT WITHIN REACH. BED ALARM IN PLACE.
[2024-09-25] MEDS ORDERED: IBLOOD GLUCOSE TEST STRIP 1 EA TEST VI SCH (17:00)
[2024-09-25] MEDS ORDERED: INSULIN LISPRO 100 UNIT/ML ML SUB-Q SCH (17:00)
[2024-09-25] MEDS ORDERED: CELECOXIB 200 MG CAP PO SCH (17:00)
[2024-09-25] MEDS ORDERED: IRON325 M1 PO (17:55)
[2024-09-25] MEDS ORDERED: MINOXIDIL10 MG PO (17:59)
--- NOTE | 2024-09-25 17:59 | NUR ---
MED REC COMPLETE
--- NOTE | 2024-09-25 18:29 | NUR ---
Patient reported feeling pain. RN notified.
--- NOTE | 2024-09-25 18:51 | NUR ---
PT CARED FOR 1745 - 1900. PT RESTING IN BED. CMS TO R WRIST, HAND, ANKLE AND FOOT INTACT. SWELLING NOTED TO ALL SITES. DSG'S CD&I. PT C/O PAIN MOSTLY TO BACK AND R WRIST. MEDICATED X1. TOLERATED 100% OF MEAL AND PO INTAKE. SIDERAILS UP X4, CALL GALAN IN REACH, BED IN LOW POSITION AND LOCKED.
--- NOTE | 2024-09-25 19:10 | NUR ---
REPORT RECEIVED FROM NACHO BUENROSTRO. pt RESTING IN THE BED. BOARD UPDATED. pt DENIES ANY OTHER NEEDS AT THIS TIME. CALL LIGHT WITHIN REACH.
--- NOTE | 2024-09-25 22:00 | NUR ---
ASSESSMENT AND VITAL SIGNS DONE. pt C/O 06/09 PAIN. PRN PAIN MEDS ADMINISTERED. pt DENIES ANY OTHER NEEDS AT THIS TIME. CALL LIGHT WITHIN REACH. NEW PURE WICK PLACED. RIGHT ARM AND RIGHT LEG ELEVATED ON PILLOWS. ICE PROVIDED FOR ARM AMD LEG. SCD ON THE LEFT LEG. WATER REFRESHED. pt BLOOD SUGAR CHECKED WITH A RESULT 164. SS INSULIN ADMINISTERED.
[2024-09-25] MEDS ORDERED: ACETAMINOPHEN 500 MG TAB PO SCH (23:45)
[2024-09-26] VITALS (9 sets, daily range): BP systolic 129–155; BP diastolic 67–94
--- NOTE | 2024-09-26 | NUR ---
PHONE CALL PLACED TO MD FOR pt BREAKTHROUGH PAIN. NEW ORDERS GIVEN AND VERIFIED WITH REPEAT BACK METHOD. PRN PAIN MEDS ADMINISTERED. pt DENIES ANY OTHER NEEDS AT THIS TIME. CALL LIGHT WITHIN REACH.
--- NOTE | 2024-09-26 01:08 | NUR ---
IN RM TO REASSESS pt PAIN. pt STATES PAIN IS MORE TOLERABLE NOW. ICE PACKS PLACED ON RIGHT LEG. pt DENIES ANY OTHER NEEDS AT THIS TIME. CALL LIGHT WITHIN REACH.
--- NOTE | 2024-09-26 01:49 | NUR ---
TRUCK CLEANER OBTAINED VITALS AND I&O. PT STATES NO FURTHER NEEDS AT THIS TIME. CALL LIGHT WITHIN REACH.
--- NOTE | 2024-09-26 04:22 | NUR ---
IN RM TO GIVE pt PRN PAIN MEDS. pt C/O 05/09 PAIN. pt DENIES ANY OTHER NEEDS AT THIS TIME. CALL LIGHT WITHIN REACH.
--- NOTE | 2024-09-26 06:13 | NUR ---
PT STATED THAT SHE FELT WET. JANUSZ FERNANDO PRIMARY RN CHANGED PT BRIEF, OLMAN PAD, AND PUREWITEJ. VITALS AND I&O OBTAINED. PT GIVEN COFFEE UPON REQUEST. PT STATES NO FURTHER NEEDS AT THIS TIME. CALL LIGHT WITHIN REACH.
--- NOTE | 2024-09-26 07:20 | NUR ---
REPORT RECEIVED FROM CHITRA STARKEY. PT IS AWAKE AND ALERT IN BED, GREETS THIS RN UPON ENTERING ROOM. PTs R FOOT IS ELEVATED ON A PILLOW, SCD NOTED ON L LEG, R ARM IS ON A PILLOW. PT IS COMPLAINING OF PAIN IN HER R ARM, FOOT, AND BURNING IN HER GROIN AT THIS TIME. GENERALIZED EDEMA NOTED TO R FINGERS AND R TOES WITH BRISK CAPILLARY REFILL, PUREWICK IN PLACE IS DRAINING CLEAR, YELLOW URINE. PT REQUESTS ICE WATER AND WARM BLANKETS - PROVIDED. NO OTHER NEEDS AT THIS TIME, CALL LIGHT AND PERSONAL BELONGINGS WITHIN REACH.
--- NOTE | 2024-09-26 08:15 | NUR ---
RN RESPONDING TO CALL LIGHT - PT CRYING AND HOLLERING OUT STATING SHE IS IN PAIN. 1MG IV DILAUDID ADMINISTERED. PT EDUCATED ON PO PAIN MEDS VS IV FOR DURATION OF RELIEF. LEG AND ARM ELEVATED AND ICE PLACED. BARRIER CREAM APPLIED TO HEATHER AREA WITH CHANGE OF PUREWIK. CALL LIGHT IN REACH.
--- NOTE | 2024-09-26 08:30 | NUR ---
Board has been updated, and hugo care has been completed. Ice packs have been given for right lower exstremity and right wrist. No further request from patient at this time. Nurse has been notfied of patient pain and discomfort.
--- NOTE | 2024-09-26 08:41 | NUR ---
MORNING MEDICATIONS ADMINISTERED, SEE MAR. PT IS IN BED WITH HOB ELEVATED EATING BREAKFAST AT THIS TIME. PT HAS NO FURTHER NEEDS, CALL LIGHT AND PERSONAL BELONGINGS IN REACH.
--- NOTE | 2024-09-26 09:46 | NUR ---
ASSESSMENT COMPLETE. PT CONTINUES TO REPORT PAIN IN HER R HAND AND R ANKLE ARE AT A 9/10, BOTH SURGICAL SITES ARE ELEVATED AND ON ICE AT THIS TIME. PT HAS BILAT LOWER EXTREMETY EDEMA, HER LLE IS 1+ PITTING AND HER RLE IS GENERALIZED WITH BRISK CAPILLARY REFILL AND PEDAL PULSE FOUND WITH DOPPLER. R HAND AND ARM HAVE GENERALIZED EDEMA, LIMB IS ELEVATED ON A PILLOW. PT REPORTS TO THIS RN THAT AT HOME SHE TAKES FUROSEMIDE FOR HER SWELLING. PT ALSO REPORTS THAT SHE HAS HAD SEVERAL FRACTURES THIS YEAR AFTER STARTING ON A MEDICATION FOLLOWING HER BREAST CANCER TREATMENT. PT ALSO REPORTS CHRONIC TINGLING IN HER LLE FOR SEVERAL YEARS NOW. CPOX REMAINS AT BEDSIDE, SPO2 SUSTAINS 88% ON RA, PT DOES NOT REPORT SOB, 1L O2 VIA NC APPLIED AND PT SUSTAINS SPO2>92%. BILL FROM PHYSICAL THERAPY ARRIVES TO WORK WITH PT, PT REMINDS THIS RN SEVERAL TIMES THAT SHE PRN PAIN MEDICATION "DUE SOON". MANDY DAVIDSON ASSISTS BILL TO WORK WITH PT AT THIS TIME. NO OTHER REQUESTS, CALL LIGHT IN REACH.
[2024-09-26] MEDS ORDERED: FUROSEMIDE 20 MG TAB PO SCH (10:41)
[2024-09-26] MEDS ORDERED: PANTOPRAZOLE SODIUM 40 MG TABEC PO SCH (10:41)
[2024-09-26] MEDS ORDERED: POTASSIUM CHLORIDE 10 MEQ TABCR PO SCH (10:43)
[2024-09-26] MEDS ORDERED: VERAPAMIL HCL 240 MG TABCR PO SCH (10:44)
--- NOTE | 2024-09-26 11:05 | NUR ---
PT AMBULATES WITH JANUSZ BARRIOS AND PHYSICAL THERAPY BILL OFF OF BSC AND INTO RECLINER. PT USES FWW WITH R ARM SUPPORT, PUTS ALL HER WEIGHT ON L FOOT AND TOE TOUCHES WITH R FOOT. PHYSICAL THERAPY DR Leonardo KHAN, JANUSZ BARRIOS, AND THIS RN PRESENT AT THIS TIME TO DISCUSS PLAN FOR DISCHARGE/IMPROVEMENTS AND PAIN CONTROL PLAN.
[2024-09-26] MEDS ORDERED: PHARMACY RENAL DOSE ADJUSTMENT 1 DOSE MISC PO SCH (12:00)
--- NOTE | 2024-09-26 13:38 | NUR ---
HOME CPAP AT BEDSIDE READY FOR USE. RN NOTIFIED TO CALL RT IF USING CPAP AND DESATURATING.
[2024-09-26 13:47] LABS: BILIRUBIN, URINE NEGATIVE (negative); BLOOD/HGB, URINE NEGATIVE (Negative); KETONE, URINE NEGATIVE (Negative); LEUK ESTERASE, URINE NEGATIVE (negative); NITRITE, URINE NEGATIVE (negative)
[2024-09-26] MEDS ORDERED: POLYETHYLENE GLYCOL 3350 1 PACKET PO SCH (14:43)
[2024-09-26] MEDS ORDERED: SENNOSIDES/DOCUSATE 1 EA TAB PO SCH (14:44)
--- NOTE | 2024-09-26 15:38 | NUR ---
MEDICATIONS ADMINISTERED, SEE MAR. PT IS ASSISTED OFF OF BEDPAIN AT THIS TIME REQUIRING FULL BED LINEN CHANGE. HEATHER-CARE PROVIDED, BARRIER CREAM APPLIED TO CREASES, PUREWICK PLACED AT THIS TIME. PT IS COMPLAINING OF L KNEE PAIN AND HER L KNEE "LOCKING UP". PT IS ALSO COMPLAINING OF ABDOMINAL PAIN AND CRAMPING, SHE REPORTS SHE HAS NOT HAD A BOWEL MOVEMENT "IN A FEW DAYS - I THINK THE DAY BEFORE I HAD SURGERY BUT I FEEL COMPLETELY BACKED UP". NIO PLACED FOR BOWEL CARE, BOWEL MEDICATIONS ADMINISTERED AT THIS TIME ALSO. PT EXPRESSES CONCERNS ABOUT HAVING A BOWEL MOVEMENT, SHE DOES NOT BELIEVE SHE CAN DO THIS ON THE BSC AND IS QUESTIONING HOW SHE CAN GET TO THE TOILET. PUREWICK PLACED AT THIS TIME PER PT REQUEST. NO OTHER NEEDS AT THIS TIME, CALL LIGHT IN REACH.
--- NOTE | 2024-09-26 16:45 | NUR ---
PTs MOTHER IS PRESENT, SHE HAS PTs SON 'SADIE' ON SPEAKER PHONE. MOTHER, PT, AND PTs SON ARE UPDATED ON PTs PLAN OF CARE AT THIS TIME. PTs MOTHER IS EXPRESSING CONCERNS ABOUT PLAN FOR PT. SHE IS CONCERNED REGARDING PTs L KNEE PAIN AND HER ABILITY TO USE THE BATHROOM. THIS RN ATTEMPTED TO EXPLAIN PTs STATUS, PTs MOTHER VERBALIZES UNDERSTAND BUT CONTINUES TO LOOK UNCERTAIN AT THIS TIME. SRT STUART ARRIVES TO TAKE PTs BLOOD SUGAR. PT STATES HER PAIN IS CURRENTLY A 10/10 AND IS REQUESTING HER IV PAIN MEDICATION AT THIS TIME. CALL LIGHT IN REACH.
--- NOTE | 2024-09-26 16:56 | NUR ---
DURING CBG CHECK PT STATED "THAT HURT MORE THAN USUAL." REPORTED TO PRIMARY RN.
--- NOTE | 2024-09-26 17:48 | NUR ---
MEDICATIONS ADMINISTERED, SEE MAR. PTs MOTHER STANDS AT THIS RNs SHOULDER THROUGHOUT MEDICATION ADMINSTRATION, CRITIQUING THIS RNs TECHNIQUE AND MUTTERING. PTs PAIN IS RATED 10/10, PT IS PRIMARILY CONCERNED ABOUT HER L KNEE PAIN AT THIS TIME. PT IS ALSO ASKING WHETHER A NIC IS AN OPTION FOR WHEN IT IS TIME TO USE THE RESTROOM. THE RN EXPLAINS THAT THE NIC DOES NOT REACH INTO THE BATHROOM, IT WOULD ONLY REACH TO A BSC AND REINFORCES PHYSICAL THERAPY'S RECOMMENDATION FOR PTs CARE PLAN. PT REPEATEDLY REPORTS THAT PHYSICAL THERAPY HAS INJURED HER L KNEE. PT EXPRESSES FRUSTRATION THAT A NIC IS NOT AN OPTION RIGHT NOW AND REPORTS THAT SHE DOES NOT FEEL LIKE SHE NEEDS TO HAVE A BOWEL MOVEMENT AT THE MOMENT. PTs PUREWICK TANK EMPTIED AT THIS TIME AND REATTACHED. PT HAS NO OTHER REQUESTS AT THIS TIME, CALL LIGHT IN REACH.
--- NOTE | 2024-09-26 18:00 | NUR ---
PROVIDED PT WITH FRESH ICE WATER PER PT REQUEST. ADJUSTED LIGHTING TO PT LIKING. PERSONAL BELONGINGS AND CALL LIGHT ARE WITHIN REACH. PT STATED NO FURTHER NEEDS AT THIS TIME.
--- NOTE | 2024-09-26 19:14 | NUR ---
Received report form Shanta Carlos. Flat affect, drowsy, Ortho boot in place R leg. no c/o pain or requests. Elderly female in room
[2024-09-26] MEDS ORDERED: ANASTROZOLE 1 MG TAB PO SCH (21:00)
[2024-09-26] MEDS ORDERED: ASPIRIN 81 MG TABEC PO SCH (21:00)
[2024-09-26] MEDS ORDERED: ATORVASTATIN 40 MG TAB PO SCH (21:00)
[2024-09-26] MEDS ORDERED: minoxidiL 10 MG TABLET PO SCH (21:00)
--- NOTE | 2024-09-26 21:49 | NUR ---
Pt awake, alert and oriented, all cares explained prior to. compliant and cooperative. repositined self in bed. on room air, cpox on at bedside, home CPAP at bedside. lungs clear bilat, no c/o sob with exertion. R hand edema 2+, brace in place, good cms. R foot edema 3+ covered with ирина wrap, ortho boot in place, agrees to ice, fresh ice to R ankle area. pedal pulses auscultated with doppler, marked. both Rhand nad R leg elevated with 2 pillows. L cnkle/foor 1+ edema, c/o L knee edematous and tender, no differences between R and L knee noted. moves L leg wewll. good pulses. no redness. elevated. generalized edema/very obese. purewick in place draining medium yellow urine. plus was incontinent of urine, changed, skin care fresh attends and chux. C/o 9/10 Rhand, Rleg and L knee pain area 9/10 medicated with scheduled Tylenol and Oxycodone 10mg po. passing flatus. CBG 196 received 1 units SSI.
--- NOTE | 2024-09-26 23:34 | NUR ---
KATIA TO R FOOT, R WRIST AND R FOOT ELEVATED, CPOPX
[2024-09-27] VITALS (9 sets, daily range): BP systolic 121–149; BP diastolic 64–82
--- NOTE | 2024-09-27 01:51 | NUR ---
Resting, eyes closed, using home CPAP, no s/sx distress. R arm and R leg elevated, wrist brace and Orhto boot in place.
--- NOTE | 2024-09-27 02:26 | NUR ---
USES CALL LIGHT, CPAP OFF AT THIS TIME ON ROOM AIR. C/O 06/09 R [id number] KNEE PAIN, MEDICATED WITH OXYCODONE 10MG PO. DECREASED EDEMA TO r HAND AND r FOOT NOTED, NO CHANGED l. HELPED WITH REPOSITONING, KOKI CHANGED AT THIST MARLEY. COOPERATIVE, FRESH COFEE GIVEN ON REQUESTS
--- NOTE | 2024-09-27 04:56 | NUR ---
PT AWAKE, COOPERATIVE WITH VITALS AND ASSESSMENTS. C/O R WRIST-R LEG AND L KNEE PAIN, 06/09, MEDICATED WITH DILAUDID 1MG IV. WRIST BRACE AND R LEG ORTHO BOOT IN PLACE, BOTH ELEVATED. IMPROVED EDEMA TO R HAND AND R FOOT
--- NOTE | 2024-09-27 06:45 | NUR ---
pt in bed sitting up position. c/o 9/10 r wrist- r leg and l knee pain. Medicted with Oxycodone 10mg po.
--- NOTE | 2024-09-27 07:04 | NUR ---
REPORT RECEIVED FROM ANALYTICS LEAD RN CHANTELL. PATIENT IS LYING IN BED WITH CPAP IN PLACE. PATIENT WITH EYE CLOSED AND RESPIRATIONS ARE EVEN AND UNLABORED. CALL LIGHT AND PERSONAL BELONGINGS ARE WITHIN REACH.
--- NOTE | 2024-09-27 08:15 | NUR ---
Board has been updated and patient is set up for breakfeast. Call light has been placed within reach.
--- NOTE | 2024-09-27 08:40 | NUR ---
0800 AND 0900 MORNING MEDICATIONS ADMINISTERED PER THE EMAR. PATIENT IS SITTING AT THE EDGE OF BED AND ATE 100% OF BREAKFAST TRAY. FULL ASSESSMENT COMPLETE AND DOCUMENTED IN THE CHART. PATIENT IS ALERT AND ORIENTED TIMES FOUR. CARDIAC WITH IRREGULAR HEART TONES. LEFT PEDAL PULSE IS STRONG AND LEFT RADIAL PULSE IS STRONG. CAP REFILL IS LESS THAN 3 SECONDS IN THE UPPER AND LOWER EXTREMITIES. 2+ PITTING EDEMA NOTED IN THE R HAND AND 1 + PITTING EDEMA NOTED IN THE L FOOT. GENERALIZED EDEMA NOTED IN THE L KNEE. PATIENT IS ON ROOM AIR AND LUNG SOUNDS ARE CLEAR BILATERALLY. IS AT BEDSIDE. PATIENT USES HOME CPAP AT NIGHT. PATIENT REPORT TINGLING TO RIGHT UPPER LEG. PATIENT IS ON A 60 GRAM CARB DIET AND BOWEL TONES ARE ACTIVE IN ALL FOUR QUADRANTS. SKIN WITH SCATTERED TATTOOS NOTED. IV IN THE LEFT UPPER ARM FLUSHED WITH 10 ML NORMAL SALINE AND IS SALINE LOCKED. IV DRESSING IS CLEAN, DRY, AND INTACT. PATIENT WITH PUREWICK IN PLACE. URINE IS YELLOW. PATIENT IS TOE TOUCH/WEIGHT-BREAING. PATIENT WITH PT ORDERS. PATIENT STATED NO FURTHER NEEDS AT THIS TIME. PATIENT BREAKFAST TRAY REMOVED PER PATIENT REQUEST. CALL LIGHT AND PERSONAL BELONGINGS ARE WITHIN REACH.
--- NOTE | 2024-09-27 09:34 | NUR ---
PATIENT IS LYING IN BED. PT AND RN ARE IN THE ROOM AT THIS TIME. PATIENT GIVEN FRESH CUP OF ICE WATER. PATIENT STATED NO FURTHER NEEDS AT THIS TIME. CALL LIGHT AND PERSONAL BELONGINGS ARE WITHIN REACH.
[2024-09-27] MEDS ORDERED: TAPENTADOL HYDROCHLORIDE PO PRN (10:15)
--- NOTE | 2024-09-27 10:15 | NUR ---
RN CALLED INESSA CISNEROS. ORDERS PUT IN BY THIS RN. AMELIA STATED SHE WOULD BE IN LATER THIS AFTERNOON. INESSA WITH NO FURTHER ORDERS AT THIS TIME. CALL ENDED.
[2024-09-27 10:26] LABS: BILIRUBIN, URINE NEGATIVE (negative); BLOOD/HGB, URINE NEGATIVE (Negative); KETONE, URINE NEGATIVE (Negative); LEUK ESTERASE, URINE NEGATIVE (negative); NITRITE, URINE NEGATIVE (negative)
[2024-09-27] MEDS ORDERED: GABAPENTIN 600 MG TAB PO SCH (11:00)
[2024-09-27] MEDS ORDERED: HYDROmorphone HCL 4 MG TAB PO PRN (11:00)
--- NOTE | 2024-09-27 11:10 | NUR ---
IMAGING IN TO DO BILATERAL KNEE X-RAY. PUREWICK REPLACED. PATIENT IS RESTING IN BED WITH RIGHT LEG ELEVATED. PATIENT EDUCATED THAT SITTING AT BEDSIDE WITH FOOT ON FLOOR WOULD NOT BE CONDUCIVE TO HEALING.
--- NOTE | 2024-09-27 12:02 | NUR ---
1100 AND 1200 MEDICATIONS ADMINISTERED PER THE EMAR. PATIENT RATED PAIN A 9/10 BUT IS NOT REQUESTING ANYTHING FOR IT AT THIS TIME. PATIENT IS SITTING ON THE EDGE OF BED AND EATING LUNCH. RN ASSISTED PATIENT TO ELEVATE RIGHT LOWER EXTREMITY ON A CHAIR. PATIENT STATED NO FURTHER NEEDS AT THIS TIME. CALL LIGHT AND PERSONAL BELONGINGS ARE WITHIN REACH.
--- NOTE | 2024-09-27 14:25 | NUR ---
PATIENT IS LYING IN BED AND WATCHING TV. PATIENT RESPIRATIONS ARE EVEN AND UNLABORED. PATIENT RATED PAIN A 10/10. PATIENT GIVEN SCHEDULED TYLENOL AND PRN DILAUDID. IV IN THE LEFT UPPER ARM FLUSHED WITH 10 ML NORMAL SALINE AND IS SALINE LOCKED. IV DRESSING IS CLEAN, DRY, AND INTACT. PEDAL PULSES AUSCULTATED WITH THE DOPPLER. CAPILLARY REFILL LESS THAN 3 SECONDS IN THE LOWER EXTREMITIES BILATERALLLY. DRESSING IN THE RLE IS CLEAN, DRY, AND INTACT. 2+ PITTING EDEMA NOT IN THE RIGHT HAND WITH 1+ PITTING EDEMA IN THE LLE. GENERALIZED EDEMA NOTED. 3+ PITTING EDEMA NOTED IN THE RLE. PATIENT STATED NUMBNESS AND TINGLING IN BLE. INESSA CISNEROS NOTIFIED. PATIENT STATED NO FURTHER NEEDS AT THIS TIME. CALL LIGHT AND PERSONAL BELONGINGS ARE WITHIN REACH.
[2024-09-27] MEDS ORDERED: POLYETHYLENE GLYCOL 3350 BOTTLE PO PRN (15:15)
--- NOTE | 2024-09-27 15:40 | NUR ---
CHITRA REA, REX (HOG SLAUGHTERER) AND IMAGING ENTERING THE PATIENTS ROOM AT THIS TIME.
--- NOTE | 2024-09-27 16:30 | NUR ---
Rounding on this pt at the request of the primary RN, Rosy Nascimento. Pt is sitting on the toilet, states she is "done' and did not have a BM. Pt states she does not want the hat in the toilet anymore because it pinches her or pokes her when she sits on it. Emptied the "hat" of 100ml clear yellow urine and noted unmeasured urine in the toilet as well. Pt self transferred from the toilet to the wheel chair, I wheeled her next to the bed, then pt transferred from wheelchair to the bed where she sat at the edge and washed herself with a warm wash cloth provided to her. This RN washed pt's back with bed bath wipes. Skin intact on backside. Pt positioned herself in bed, then proceeded to wash her princess area with a warm wash cloth. Princess wipes used to cleanse the area before purewick applied and secured with brief. No redness or discharge noted in the area of the vulva. Pt requested pillow beneath her left knee, right heel placed on two pillows. Side rails up x4, call light in reach. Bedside table with personal belongings in reach. Primary RN notified.
--- NOTE | 2024-09-27 17:30 | NUR ---
PATIENT IS SITTING AT EDGE OF BED, RESPIRATIONS ARE EVEN AND UNLABORED. CALL LIGHT AND PERSONAL BELONGINGS ARE WITHIN REACH.
--- NOTE | 2024-09-27 19:29 | NUR ---
pt resting, eyes closed, R wrist brace, elevated. R leg ortho boot in place, elevated. on room air
--- NOTE | 2024-09-27 21:46 | NUR ---
pt awake, on room air, lungs dim at bases, irregular heart rhythm. R hand 2+ edema, elevated, gauze dressing and wrist brace in place. R ankle surgical site covered with ирина wrap, edema 2+ much improved, doppler used for pulses. elevated, agreed to ice to area, ortho boot in place, elevated with pillows. L ankle/foot 1+, pulses faint but palpable, generalized edema, ice to L knee too on requests, c/o being edematous, visual assessment by this Rn no difference between R and L knee area. SL LAC patent. abd large cesar, taking Miralax bowel prep and took scheduled Miralax and Senna, no bm at thist bernice LBM 09/24 as per pt. Pure wick in place, changed, draining dark yellow urine. CBG 194, received 3 units SSI. alert and oriented to all, helped reposition in bed. c/o 06/09 R writs-R afoot, L knee pain 06/09, received scheduled Tylenol. talking to family via phone,
--- NOTE | 2024-09-27 22:53 | NUR ---
Up to BRP, 2PA/w/c pivot transfer, ortho boot in place R leg. Reminded of toe touch weight bearing only, stated "I know" but pivoted and transferred to w/c. Had a very large semi liquid bm. was also incontinent of urine in attends. skin care done, back to bed. Clean attends and pure wick in place. tolerated well. on room air, has CPAP at bedside
--- NOTE | 2024-09-27 23:42 | NUR ---
SITTING EDGE OF BED, LEGS DEPENDENT, ORTHO BOOT WICE IN PLACE, C/O 8 PAIN, MEDICATED WITH DILAUDID 4MG PO. PLEASANT AND COOPERATIVE. PLAYING IN COMPUTER
[2024-09-28] VITALS (7 sets, daily range): BP systolic 140–172; BP diastolic 74–104
--- NOTE | 2024-09-28 00:28 | NUR ---
bACK TO BED, le ELEVATED WITH PILLOWS. ICE REMOVED. ORTHO BOOT INPLACE R LEG. FRESH ICE WATER, CRACKERS AND CHEESE STICKS GIVEN ON REQUEST. NO C/O PAIN
--- NOTE | 2024-09-28 04:15 | OR ---
[facility] [address], [place] [address] Signed DATE OF OPERATION: 09/25/2024 SURGEON: Siri Mccray MD PREOPERATIVE DIAGNOSES: 1. Right bimalleolar ankle fracture. 2. Right distal radius fracture. POSTOPERATIVE DIAGNOSES: 1. Right bimalleolar ankle fracture. 2. Right distal radius fracture. PROCEDURES PERFORMED: 1. Open reduction and internal fixation of right bimalleolar ankle fracture. 2. Open reduction and internal fixation of right distal radius fracture. CALCINER FEEDER: Christiana Will. Christiana was present for the wrist only. ANESTHESIA: General. BLOOD LOSS: None. TOURNIQUET TIME: 36 minutes for the ankle, 34 minutes for the wrist. IMPLANTS: Synthes hook plate and headless screws for the ankle and Maxi distal radius plate for the wrist. BRIEF HISTORY: Monica is a 49-year-old female, who suffered a ground level fall fracturing both the wrist and ankle. Risks, benefits, and alternatives of surgical intervention were discussed with her and she elected to proceed. DESCRIPTION OF OPERATION: Once consent was obtained, she was taken to the operating room. After adequate anesthesia, she hovermatted over to the operating bed. All downside pressure points Electronically Signed By: SIRI MCCRAY MD 09/28/24 0415 PATIENT NAME: MONICA TUCKER OPERATIVE REPORT DATE OF : 71 REPORT #: [id number] PHYSICIAN: SIRI MCCRAY MD PCP: JENNIFER BATISTA PAC REPORT IS CONFIDENTIAL AND NOT TO BE RELEASED WITHOUT AUTHORIZATION [facility] [address], [place] [address] Signed were well padded. The right arm was placed in a well-padded proximal arm tourniquet and prepped and draped in a standard sterile fashion. The arm was exsanguinated using Esmarch bandage and tourniquet inflated to 200 mmHg. Standard volar approach to the distal radius was taken through the skin and subcutaneous tissue. The FCR was identified, retracted ulnarly and protected. The floor of the FCR sheath was incised and blunt dissection was taken down to the pronator. The pronator was incised longitudinally and elevated off the distal radius showing the fracture. The fracture was reduced and the small Maxi plate was placed on the volar aspect of the distal radius. This was then held in position and image intensifier was brought in. Radiograph showed good positioning. One screw was placed in the longitudinal axis of the plate and two screws were placed in the radial styloid and one on the ulnar side. The final screw was placed in the proximal end of the plate. Final radiographs showed good reduction, although there was some comminution dorsoradially. The screw lengths were appropriate. The wound was copiously irrigated with normal saline. The pronator was closed using 3-0 Monocryl. The floor of the FCR sheath was closed using 3-0 Monocryl. The subcutaneous tissue was closed with 2-0 Monocryl and 3-0 Stratafix. The wound was sealed with LiquiBand and Steri-Strips. She was dressed with Allevyn dressing and gauze. She was placed in a thumb spica splint. Attention was then turned to the ankle. The leg was placed in a well-padded proximal thigh tourniquet and prepped and draped in a standard sterile fashion after changing gloves and gown. The leg was then exsanguinated using Esmarch bandage and tourniquet inflated to 300 mmHg. Her ankle was quite large due to her body habitus and some swelling. A longitudinal lateral incision was made, carried down through the skin and subcutaneous tissue. The distal end of the malleolus was fairly comminuted at least five pieces. I felt that neutralization with a hook plate would be the best option for the fibula. We then fashioned the hook plate to fit the distal fibula. This was held in place with the proximal screw and a 2nd screw was placed from the end of the fibula proximally engaging the body. This was done through the hook portion. This was then tightened up driving the hooks into the bone. Three more screws were then placed in the plate. Her bone was exceedingly soft and good purchase was only obtained on two or three screws. This would include the distal longitudinal screw. The wound was copiously irrigated with normal saline and closed in layers using 2-0 Monocryl and kamini. Attention was then turned to the medial malleolus, which was a nondisplaced fracture. Because of her diabetes, body habitus and the risk of infection, we elected to percutaneously put two headless screws in the medial malleolus. These were done through separate stab incisions and excellent fixation was obtained. Final radiograph showed good reduction of the fracture. Her ankle mortise was stable and all hardware was of appropriate length. The wounds medially were cleansed again with normal saline and closed with kamini. Both wounds were then dressed with Allevyn sterile 4 x 8 and an Rebel wrap. She was placed back into a fracture boot. She tolerated the procedure well. All sponge, needle, and instrument counts were correct. Electronically Signed By: SIRI MCCRAY MD 09/28/24 0415 PATIENT NAME: MONICA TUCKER OPERATIVE REPORT DATE OF : 71 REPORT #: [id number] PHYSICIAN: SIRI MCCRAY MD PCP: JENNIFER BATISTA PAC REPORT IS CONFIDENTIAL AND NOT TO BE RELEASED WITHOUT AUTHORIZATION [address] [place], [place] [address] Signed Siri Mccray MD /[facility] /[id number] Copies: ~ Electronically Signed By: SIRI MCCRAY MD 09/28/24 0415 PATIENT NAME: MONICA TUCKER OPERATIVE REPORT DATE OF : 71 REPORT #: [id number] PHYSICIAN: SIRI MCCRAY MD PCP: JENNIFER BATISTA PAC REPORT IS CONFIDENTIAL AND NOT TO BE RELEASED WITHOUT AUTHORIZATION
--- NOTE | 2024-09-28 04:31 | NUR ---
Eyes closed, using CPAP, no s/sx distress. R hand wrist brace in place, elevated and R foot ortho boot in place, both elevated with pillows. pure wick in place.
[2024-09-28 05:27] LABS: BASOPHILS 1.5 % (0-2); EOSINOPHILS 4.4 % (0-6); HEMATOCRIT 29.2 % (35.0-50.0); HEMOGLOBIN 9.7 g/dL (12.0-18.0); LYMPHOCYTES 24.8 % (24-44); MCH 29.4 (27-36); MCHC 33.1 g/dl (30-36); MCV 88.8 fl (81-99); NEUTROPHILS 60.3 % (39-80); PLATELET COUNT 234 K/uL (140-440); RBC 3.29 M/ul (4.3-5.7); RDW 15.7 (10.5-15.0)
[2024-09-28 05:39] LABS: ANION GAP 10.9 (7-21); BUN/CREATININE RATIO 16.12 (6.0-28.6); CALCIUM 9.4 mg/dL (8.5-10.1); CREATININE, SERUM 0.62 mg/dL (0.55-1.02); MAGNESIUM 2.1 mg/dL (1.8-2.4); POTASSIUM 3.9 mmol/L (3.5-5.1)
--- NOTE | 2024-09-28 05:48 | NUR ---
PATIENT ASSISTED TO THE BR A 1PA PIVOT. PATIENT ABLE TO VOID AND HAVE XL BM. PATIENT IS BACK IN BED RESTING. PATIENT TOLERATED ACTIVITY WELL. PATIENTS RLE ELEVATED ON PILLOWS AND ICE PACK APPLIED. ICE PACK APPLIED TO LEFT KNEE PER REQUEST. NEW PUREWICK IN PLACE. PATIENT RATES PAIN AT A 9/10 IN RLE, PRN PAIN MEDICATION GIVEN PER ORDER. PATIENT DENIES ANY FURTHER NEEDS. CALL LIGHT IN REACH.
--- NOTE | 2024-09-28 08:08 | NUR ---
UR CLINICAL REVIEW: [facility]-MEETS CRITERIA FOR INPT FOR ORIF/PAIN CONTROL. CONCURRENT REVIEW COMPLETED, DOES NOT MEET DC CRITERIA, VIARANCE COMPLETED. [facility] INPT 09/25/24 @ 1547 ORDER MATCHES REG CLINICAL FAXED FOR AUTH REVIEW DISCHARGE TO [facility] 10/01/24
--- NOTE | 2024-09-28 08:08 | NUR ---
SNF REFFERAL SENT TO [facility] AND ROLF CASTAÑEDA.
--- NOTE | 2024-09-28 08:45 | NUR ---
ATTEMPT TO SPEAK WITH PATIENT, SHE IS ON THE PHONE AND DOES NOT HANG UP TO TALK TO STAFF. WILL RETURN TO SPEAK WITH HER.
--- NOTE | 2024-09-28 08:59 | NUR ---
PATIENT BACK TO BED FROM BATHROOM, SBA WHILE PATIENT SLIDES OVER TO WHEELCHAIR THEN SLIDES FROM WHEELCHAIR TO BED. HEATHER CARE DONE. NEW KOKI PLACED. VITALS AND I&O'S CHARTED. PATIENT STATES SHE IS FEELING ANXIOS AT THIS TIME. CALL LIGHT IN REACH. NO FURTHER NEEDS AT THIS TIME. RN NOTIFIED OF VITALS AND THAT PATIENT IS FEELING ANXIOS.
--- NOTE | 2024-09-28 10:32 | NUR ---
[facility] UNABLE TO ACCEPT DUE TO PATIENT INSURANCE BEING OUT OF NETWORK.
--- NOTE | 2024-09-28 11:58 | NUR ---
PATIENT LIVES IN SINGLE LEVEL HOME WITH SON, DOES HAVE STAIRS TO GET IN. STATES HER MOTHER IS RESEARCHING RAMP AND COST AND WHAT SHE HAS FOUND IS IN PATIENT'S BUDGET. STATES SHE HAS A SPECIAL NEEDS SON THAT HER MOTHER IS CURRENTLY CARING FOR. PATIENT HAS WALKER AND WHEELCHAIR AT HOME SHE PROCURED FROM [employer]. SHE DRIVES AT [place]. NO FINANCIAL CONCERNS. PLANS TO DC TO SNF WHEN ACCEPTED TO FACILITY. INFORMED HER [facility] [place] UNABLE TO ACCEPT HER INSURANCE. STATES SHE PREFERS NOT TO GO TO [facility] OR [facility]. INFORMED HER WILL UPDATE HER ON [facility] DECISION WHEN THEY'VE REVIEWED HER CLINICALS. PATIENT VOICES SHE IS HAVING HER MOTHER COLLECT BELONGINGS, INFORMED HER OF WHAT SHE WILL NEED AT FACILITY FOR SNF. DISCUSSED TRANSPORTATION TO FACILITY WELL. STATES SHE COULD POTENTIALLY HAVE FAMILY TRANSPORT HER BUT WOULD BE MORE COMFORTABLE WITH TRANSPORTATION BEING SET UP. WILL VERIFY WHEN FACILITY ACCEPTS PATIENT FOR SNF. QUESTIONS ANSWERED ABOUT SNF FACILITIES, MEDICATIONS AND BELONGINGS. STATES HER PURSE IS AT HOME. ENCOURAGED HER TO LEAVE IT AT HOME NO NEED FOR IT AT THIS TIME. DENIES OTHER NEEDS.
[2024-09-28] MEDS ORDERED: INDAPAMIDE 2.5 MG TAB PO SCH (12:00)
--- NOTE | 2024-09-28 12:50 | NUR ---
PATIENT GIVEN 4MG OF PO DILAUDID FOR 7/10 RIGHT LEG AND RIGHT WRIST PAIN.
--- NOTE | 2024-09-28 16:02 | NUR ---
PATIENT HAS BEEN ACCEPTED TO [facility], HOWEVER, ISSUE WITH INSURANCE. INSURANCE TOLD IZAIAH FROM [facility], LAST COVERED DATE IS 09/29/24. PATIENT STATES SHE IS NOT SWITCHING INSURANCE. PHONE NUMBER FOR INSURANCE PROVIDED TO PATIENT AND INFORMED HER INSURANCE COVERAGE ENDS TOMORROW UNLESS SHE CALLS THEM TODAY TO CONTINUE HER COVERAGE. VERBALIZES UNDERSTANDING. [facility] MAY BE ABLE TO ACCEPT PATIENT AT 1300 TOMORROW OR SATURDAY ONCE INSURANCE COVERAGE IS FIGURED OUT. NURSING STAFF UPDATED.
[2024-09-28] MEDS ORDERED: CALCIUM CARBONATE 500 MG CHEW PO PRN (16:45)
--- NOTE | 2024-09-28 18:25 | NUR ---
PATIENT SITTING UP IN BED WATCHING TV. VITALS AND I&O'S DONE AND CHARTED. CALL LIGHT IN REACH. NO FURTHER NEEDS AT THIS TIME.
--- NOTE | 2024-09-28 19:54 | NUR ---
PT SITTING EDGE OF BED, R ORTHO BOOT IN PLACE, LEG ELEVATED. NO C/O PAIN. R WRIST BRACE IN PLACE. VISITING WITH MOTHER
--- NOTE | 2024-09-28 22:09 | NUR ---
aWAKE, ON ROOM AIR, SITTING EDGE OF BED, LEGS DEPENDENT, r LEG ELEVATED, BRACE IN PLACE. cOOPERATIVE WITH ASESSMENT AND VITALS. LUNGS DIM AND DISTANT AT BASEES, IRREGULAR/DISTANT HEART RATE. NO C/O CP. GENERALIZED EDEMA PRESENT. 1+ r HAND, GAUZE AND WRIST BRACE IN PLACE, GOOD CMS. R ANKLE 3+, FOOT 2+, TARAN WRAP DRESSING IN PLACE, ORHTO BOOT IN PLACE, REPOSITIONED, ICE TO ARE. ELEVATED WITH PILLOWS TOO. l ANKLE/FOOT 3+ EDEMA, ICE TO l KNEE TOO, NO CHANGES BETWEEN R AND L KNEE AREA. WAS MEDICATED WITH SCHEDULED TYLENOL. HAD MULTIPLE BMS THIS SHIFT, PURE WICK IN PLACE, DRAINING LIGHT YELLOW URINE. DIMAS PATENT. COOPERATIVE. C/O L UPPER INNER GUM AREA SORE, REDNESS AND BRUISING NOTED, DENIES BITING INNER GUM AREA. REPOSITIONED SELF. CBG 189 RECEIVED 3 UNITS SSI.
[2024-09-29] VITALS (11 sets, daily range): BP systolic 15–153; BP diastolic 67–98
--- NOTE | 2024-09-29 00:28 | NUR ---
Used call light, using home CPAP. Ice off R leg, bracein place. up to BRp via w/c with 1PA. Incontinent in attends, voided in toilet and had soft bm. Did own princess care. pivot transfer to w/c and back to bed. tolerated well. R hand and R leg elevated with pillows, L leg elevated too. Tolerated well.
--- NOTE | 2024-09-29 01:36 | NUR ---
C/o upset stomach and 8/10 pain. medicated with 2 tums and dialudid 4mg po
--- NOTE | 2024-09-29 04:46 | NUR ---
sitting edge of bed, playing with computer. R wrist brace in place. legs dependent, R leg brace in place, elevated. no c/o pain. On room air. purewick in place.no further c/o pain or upset stomach
[2024-09-29] MEDS ORDERED: HYDROMORPHONE HC4 MG PO (06:46)
--- NOTE | 2024-09-29 07:07 | NUR ---
REPORT RECEIVED FROM CHANTELL BUENROSTRO. PT LAYING IN BED WATCHING TV AND COMPUTER. CPAP ON. PT STATES SHE HAS NO REQUESTS AT THIS TIME, CALL LIGHT WITHIN REACH.
--- NOTE | 2024-09-29 07:30 | NUR ---
PT C/O PAIN 05/09, MED GIVEN ORDERED. PT SITTING UP IN BED WATCHING TV, CALL LIGHT WITHIN REACH.
--- NOTE | 2024-09-29 08:29 | NUR ---
pt refused senna and miralax this am. pt sitting at side of bed with RLE elevated eating breakfast. call light within reach.
--- NOTE | 2024-09-29 09:07 | NUR ---
PATIENT SITTING UP ON EDGE OF BED. PATIENT HAD INCONT VOID. HEATHER CARE DONE. NEW PUREWICK IN PLACE. NEW ATTENDS AND LINENS. VITALS AND I&O'S DONE AND CHARTED. CALL LIGHT IN REACH. NO FURTHER NEEDS AT THIS TIME.
--- NOTE | 2024-09-29 09:13 | NUR ---
THIS INTERNET MARKETING EXECUTIVE WAS GETTING READY TO LEAVE ROOM PATIENT STATES "YOU KNOW MY BLOOD PRESSURE SHOULD BE A LITTLE LOWER SINCE I GOT MY BLOOD PRESSURE MEDS ABOUT A HALF AN HOUR AGO. YOU KNOW, I DO HAVE A LITTLE BIT OF CHEST PAIN." THIS INTERNET MARKETING EXECUTIVE HAD JUST DONE VITALS AND VITALS WERE GOOD. PATIENT IMMEDIATLEY CONTINUES TALKING ON PHONE WITH MOM AND ACTS LIKE SHE FEELS JUST FINE. WHEN ASKED WHAT THE PAIN FEELS LIKE, PATIENT SAYS IT FEELS LIKE A LITTLE BIT OF PRESSURE, AND GOES BACK TO HER CONVERSATION ON PHONE. RN NOTIFED.
--- NOTE | 2024-09-29 09:20 | NUR ---
PT C/O CHEST PAIN, STATES SHE HAS THIS OCCASIONALLY. RATES PAIN TO MID STERNAL AREA AT 5/10, STATES IS NOT "SEVERE". NO DIAPHORESIS, SOB, OR OTHER ACCOMPANYING SYMPTOMS. PT IS SITTING UP AT THE SIDE OF THE BED TALKING TO HER MOM, NO S/S DISTRESS NOTED. TUMS GIVEN TO R/O INDIGESTION SINCE SHE RECENTLY ATE BREAKFAST.
--- NOTE | 2024-09-29 09:45 | NUR ---
SPOKE WITH IZAIAH AT [facility]. 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
--- NOTE | 2024-09-29 09:46 | NUR ---
PT STATES CHEST DISCOMFORT IS SUBSIDING SLIGHTLY. DR REDDING NOTIFIED. VSS, MONITORING VS. TOLD PT TO CALL LIF CHEST PAIN CHANGES. NO DIAPHORESIS OR SOB. PT WATCHING TV. CALL LIGHT WITHININ REACH.
--- NOTE | 2024-09-29 10:04 | NUR ---
CALLED [facility]. INSTRUCTED HOW TO NAVIGATE WEBSITE TO FIND FACILITIES IN NETWORK FOR PATIENT FOR SKILLED CARE. [facility] IS LISTED ON THEIR SITE. CALLED AND SPOKE WITH BÁRBARA AT [facility]. INFORMED HER WE HAVE ORDERS AND PATIENT IS READY FOR DC TODAY. CHART FAXED FOR SNF REFERRAL AT THIS TIME. STATES SHE WILL REVIEW CHART AND NOTIFY IF THEY ARE ABLE TO ACCEPT HER OR NOT TODAY.
--- NOTE | 2024-09-29 10:21 | NUR ---
REFERRAL FAXED TO [facility]. SPOKE WITH PATIENT REGARDING INSURANCE COVERAGE AND WHAT FACILITIES ARE IN NETWORK. STATES [facility] AND WOULD PREFER NOT TO GO THERE. INFORMED FIRST FACILITY TO ACCEPT PATIENT WILL BE WHERE SHE WOULD NEED TO GO SINCE SHE HAS DISCHARGE ORDERS. CALLS WILL BE PLACED TO FACILITIES IN [facility] PER PATIENT REQUEST TO SEE IF THEY HAVE BED AVAILABLITY FOR TODAY FOR SNF. PATIENT VOICES "[facility], I'LL PUKE THE MINUTE I GET IN THE DOOR." ALLOWED HER VOICE CONCERNS. DID DISCUSS IN DEPTH THE REASONING BEHIND HER NEEDING TO GO TO IN-NETWORK FACILITIES AND WHAT COST COULD BE IF SHE GOES OUT OF NETWORK. STATES SHE CAN NOT FINANCIALLY GO [id number] AND SHE WILL GO TO [facility] IF OTHER FACILITIES CAN NOT ACCEPT HER. RECIEVED CALL FROM [facility]. THEY CAN ACCEPT PATIENT, AWAITING AUTH FROM INSURANCE. POTENTIAL ADMIT TODAY OR TOMORROW.
--- NOTE | 2024-09-29 11:02 | NUR ---
DR REDDING IN TO SEE PT, MOM IN RM. CALL LIGHT WITHIN REACH.
[2024-09-29] MEDS ORDERED: LIDOCAINE HCL 4% 1 EACH PATCH TD SCH (11:04)
[2024-09-29] MEDS ORDERED: lisinopriL 20 MG TAB PO SCH (11:08)
--- NOTE | 2024-09-29 11:35 | NUR ---
PT RESTING UP IN BED. SITTING IN FOWLERS. BG TAKEN, 218. DECLINES ANY NEEDS, CALL LIGHT IN REACH
--- NOTE | 2024-09-29 13:00 | NUR ---
LISSETH CALL FROM TEOFIOL AT [facility] IN [place], [place]. THEY ARE ABLE TO ACCEPT PATIENT. ORDERS FAXED TO FACILITY ALONG WITH [facility].
--- NOTE | 2024-09-29 13:33 | NUR ---
PT SITTING UP AT SIDE OF BED, C/O PAIN, MED GIVEN ORDERED. CALL LIGHT WITHIN REACH, PT WATCHING TV AND COMPUTER.
--- NOTE | 2024-09-29 13:44 | NUR ---
PT WAS SITTING UP AT SIDE OF BED, C/O PAIN AND STATED SHE NEEDED TO LAY DOWN. PT STATED SHE NEEDED TO URINATE, BUT REFUSED TO USE BSC OR BATHROOM. PUREWICK PLACED PER PROTOCOL. CALL LIGHT WITHIN REACH.
--- NOTE | 2024-09-29 14:15 | NUR ---
PATIENT CALLED TO SAY SHE WAS HAVING A HARD TIME BREATHING. THIS EMBLEM FUSER TENDER IN IMMEDIATLEY TO DO A SET OF VITALS. ALL VITALS WERE NORMAL FOR PATIENT. PATIENT STATES SHE HAS BEEN CRYING AND NOW CAN'T BREATH, SHE ALSO STATES THAT HER NOSE IS A BIT STUFFY AT THIS TIME. CALL LIGHT IN REACH. NO FURTHER NEEDS AT THIS TIME. RN NOTIFIED.
--- NOTE | 2024-09-29 14:23 | NUR ---
PATIENT GIVEN SCHEDULED GABAPENTIN AND TYLENOL. PATIENT RATES PAIN 8/10.
--- NOTE | 2024-09-29 15:33 | NUR ---
SPOKE WITH TEOFILO AT [facility]. THEY ARE AWAITING AUTH FROM INSURANCE. SOONEST THEY CAN ACCEPT PATIENT WOULD BE SATURDAY OR SATURDAY. PATIENT, NURSING STAFF AND DR. VALDIVIA UPDATED.
--- NOTE | 2024-09-29 15:42 | NUR ---
PT SITTING UP AT SIDE OF BED WITH RLE ELEVATED. PT RATES PAIN AT 8/10, BUT STATES IS TOLERABLE AT THIS TIME. PT PLAYING ON COMPUTER AND TALKING ON PHONE. CALL LIGHT WITHIN REACH.
--- NOTE | 2024-09-29 17:08 | NUR ---
PT RESTING IN BED WATCHING TV. PT RATES PAIN AT 6/10, PAIN MEDS GIVEN PER ORDER. PT STATES THE EDEMA IN HER LLE IS "MORE THAN NORMAL". EDUCATED PT ON KEEPING LEGS ELEVATED. PT REFUSES USING BSC OR RESTROM WITH PIVOT TRANSFER. SCD ON LLE. CALL LIGHT WITHIN REACH.
--- NOTE | 2024-09-29 18:10 | NUR ---
PT SITTING AT SIDE OF BED. STATES SHE HAS BEEN DOING EXERCISES WHILE SITTING. ENCOURAGED PT TO CONTINUE TOLERATED. PT ALSO DOING INCENTIVE SPIROMETER. TOLERATING WELL. CALL LIGHT WTIHIN REACH. NO REQUESTS AT THIS TIME.
--- NOTE | 2024-09-29 19:56 | NUR ---
Resting eyes closed, no c/o pain or distress, using CPAP, purewick in place. R wrist brace edema present, R ortho boot in place, elevated, edema to L ankle./foot
[2024-09-29] MEDS ORDERED: LIDOCAINE PATCH REMOVAL 1 EA TD SCH (21:00)
--- NOTE | 2024-09-29 22:02 | NUR ---
Up to brp, 1pa/w/c. declines toe tocuh weight bearing, prefers pivot transfer style. Voided, had soft bm. does own princess care, Back to be, tolerated well, no sob with exertion noted. Coop with assessmenta nd vitals. on room air does use home CPAP at HS, lungs clear dim at bases, no sob no cough at this time. C/o nasal stuffiness. no drainage. abd large, soft, cesar. pure wick in place, changed at this time. vaginal area slight redness. Declines to have Lidocaine patch removed L knee, edema 3+ L [id number] SCDs in place, elevated. SASKIA SL patent. R wrist covered with gauze and wrist brace in place, edema 2+, pulses palpable-faint. elevated with pillows. R ankle/foot 3+ edema, area covered with Rebel wrap, Ortho boot in place, cooperativew to ice to area at this time. elevated with pillows. C?o 9/10 pain, medicated with Dilaudid. Repositions self in bed. Talking via phone with mother. alert and oriented, follows instructions
--- NOTE | 2024-09-29 23:30 | NUR ---
ASSISTED PATIENT USE THE BATHROOM. PATIENT VOIDED UNMEASURED AND EXTRA LARGE SOFT FORMED BM. PATIENT DID SELF HEATHER CARE USING XL GLOVES. PATIENT IS SELF TRANSFER [facility]. PUREWICK AND SCD'S ARE BACK ON. ICE ON RIGHT FOOT ON TOP AND ON RIGHT WRIST. CALL LIGHT AND SIDE TABLE X2 WITHIN REACH.
[2024-09-30] VITALS (9 sets, daily range): BP systolic 131–153; BP diastolic 73–103
--- NOTE | 2024-09-30 00:36 | NUR ---
AWAKE, ON ROOM AIR, WAS USING CPAP EARLIER. NO C/O PAIN, UP TO BRP WPA/W/C PIVOT TRANSFER, R LEG BRACE/ICE TO R LEG. VOIDED, HAD XLARGE BM FORMED.BACK TO BED, TOLERATED WELL. SITTING EDGE OF BED LEGS DEPENDENT, PLAYING IN [employer]
--- NOTE | 2024-09-30 02:29 | NUR ---
awake, visiitng with family via phone and playing with computer, R wrist brace in place, and R ortho boot in place. edema to R hand, R and L LE no changes.
--- NOTE | 2024-09-30 03:58 | NUR ---
Used call light, up to BRp, 1PA/w/c. voided plus was incontinent, clean attends, skin care does own princess care. red vaginal area from pure wick. Clean pure wick placed. Back to bed, tolerated well.
--- NOTE | 2024-09-30 06:18 | NUR ---
Awake, no c/o pain. edema to R hand R foot and L foot no changes, encouraged to elevate. pure qick repositioned
--- NOTE | 2024-09-30 07:20 | NUR ---
REPORT REC'D FROM CHITRA ABDUL. PT RESTING COMFORTABLY IN BED, RUE AND LLE ELEVATED ON PILLOWS. CALL GALAN IN REACH, BED IN LOW POSITION AND LOCKED, SR UP X 4.
--- NOTE | 2024-09-30 08:21 | NUR ---
Patient was asleep in bed. Blood sugar taken and reported to CHITRA Pedersen.
[2024-09-30] MEDS ORDERED: [UNRECOGNIZED DRUG - OTHER] TD SCH (09:00)
--- NOTE | 2024-09-30 09:15 | NUR ---
IV TO RUE NOT STARTED BY THIS RN
--- NOTE | 2024-09-30 11:12 | NUR ---
PT in room working with patient. Got into wheelchair and assisted to the bathroom.
--- NOTE | 2024-09-30 12:32 | NUR ---
PT SITTING UP ON SIDE OF BED EATING LUNCH TRAY. MEDICATED WITH DILAUDID FOR PAIN. PT TO CALL AFTER MEAL COMPLETION TO CHANGE LINEN AND RETURN TO BED. CALL GALAN IN REACH, BED IN LOW POSITION AND LOCKED
--- NOTE | 2024-09-30 13:38 | NUR ---
PT RETURNED TO BED. PT CONTINUES TO C/O PAIN 06/09. ICE PACK APPLIED TO MEDIAL ASPECT OF R ANKLE AND R WRIST. BOTH ELEVATED ON PILLOWS. PT INSTRUCTED TO CALL FOR ASSISTANCE, CALL GALAN IN REACH, BED IN LOW POSITION AND LOCKED, SR UP X 3
--- NOTE | 2024-09-30 19:34 | NUR ---
REPORT RECEIVED FROM CHITRA GARCIA. pt RESTING IN BED AFTER UP TO RESTROOM FOR BM WITH INVESTMENT ASSOCIATE ASSIST. DRINKING COFFEE. NO COMPLAINTS OF PAIN. CALL LIGHT IN REACH.
--- NOTE | 2024-09-30 19:42 | NUR ---
PT OOB X 1 DURING SHIFT, SITTING ON SIDE OF BED X2. PT FREQUENT C/O PAIN, MEDICATED X 2 WITH DILAUDID. PT C/O RASH TO LEFT BUTTOCK/LEG. SEEN BY WOUND CARE NURSE, BARRIER APPLIED. ANTICIPATE DC IN AM. REPORT GIVEN TO CHITRA MIKE.
--- NOTE | 2024-09-30 20:33 | EKG ---
[facility] [address] [facility] [place] [address] Signed Sinus tachycardia Nonspecific T wave abnormality Abnormal ECG When compared with ECG of 12-APR-2024 03:19, Nonspecific T wave abnormality has replaced inverted T waves in Anterior leads Confirmed by Tushar Redding DO ([id number]) on 09/30/2024 8:33:21 PM Electronically Signed By: TUSHAR REDDING DO 09/30/242032 PATIENT NAME: MONICA TUCKER Electrocardiogram DATE OF : 71 PHYSICIAN: TUSHAR REDDING DO REPORT #: [id number] REPORT IS CONFIDENTIAL AND NOT TO BE RELEASED WITHOUT AUTHORIZATION
--- NOTE | 2024-09-30 20:38 | NUR ---
CALL LIGHT ANSWERED. PT STATED THAT SHE HAD SPILLED WATER. BB SHOT PACKER CHANGED PT WET GOWN AND ASSISTED PT WITH APPLYING LOTION ON THIGHS AND BACK FOR ITCHINESS. PT GIVEN TEA UPON REQUEST. PT STATES NO FURTHER NEEDS AT THIS TIME. CALL LIGHT WITHIN REACH.
[2024-09-30] MEDS ORDERED: VERAPAMIL HCL 240 MG TABCR PO SCH (21:00)
--- NOTE | 2024-09-30 22:10 | NUR ---
pt SLEEPING, AWAKENS TO VOICE, RATES PAIN 7-8/10 IN RIGHT WRIST AND ANKLE. BRACE AND BOOT IN PLACE. ASSISTED TO REPOSITION, BOTH EXTREMITITES ELEVATED ON PILLOWS. PRN PAIN MEDICATION ADMINISTERED WNL. ASSESSMENT COMPLETE. CSM INTACT BUE, BLE. PUREWICK CANNISTER EMPTIED. CALL LIGHT, CPAP AND PERSONAL SUPPLIES WITHIN REACH.
--- NOTE | 2024-09-30 23:36 | NUR ---
CALL LIGHT ANSWERED. HOME CPAP DRY, STERILE WATER ADDED. CALL LIGHT IN REACH.
[2024-10-01] VITALS (9 sets, daily range): BP systolic 127–154; BP diastolic 67–90
--- NOTE | 2024-10-01 02:10 | NUR ---
CALL LIGHT ANSWERED FROM RESTROOM. WC BACK TO BED. pt PIVOTS AND TRANSFER SELF TO BED. RATES PAIN 9/10 IN RIGHT ANKLE "THROBBING". PLAYING GAME ON COMPUTER WITH SIM MAN. PRN PAIN MEDICATION ADMINISTERED. ICE PACKS APPLIED TO WRIST AND ANKLE. EXTREMITIES ELEVATED. NEW PUREWICK PLACED. CALL LIGHT IN REACH.
--- NOTE | 2024-10-01 03:15 | NUR ---
CALL LIGHT ANSWERED. pt REQUESTS DOOR TO BE SHUT DUE TO HALLWAY MUSIC. LET pt KNOW THAT WILL NOTIFY ADMINISTRATION AGAIN ABOUT MUSIC VOLUME AT NIGHT. NO ADDITIONAL REQUESTS.
[2024-10-01 05:54] LABS: BASOPHILS 1.4 % (0-2); EOSINOPHILS 6.6 % (0-6); HEMATOCRIT 30.5 % (35.0-50.0); HEMOGLOBIN 10.1 g/dL (12.0-18.0); LYMPHOCYTES 32.5 % (24-44); MCH 29.4 (27-36); MCHC 33.2 g/dl (30-36); MCV 88.6 fl (81-99); MONOCYTES 7.6 % (0-12); NEUTROPHILS 51.9 % (39-80); PLATELET COUNT 318 K/uL (140-440); RBC 3.44 M/ul (4.3-5.7); RDW 15.5 (10.5-15.0)
--- NOTE | 2024-10-01 05:54 | NUR ---
CALL LIGHT ANSWERED. pt COMPLAINS OF FEELING "ACHY". VSS. PRN PAIN MEDICATION ADMINISTERED. HOB ELEVATED. ICE PACK IN PLACE ON R WRIST. BREAK FROM ICE ON ANKLE AT THIS TIME. CALL LIGHT AND PERSONAL SUPPLIES IN REACH.
[2024-10-01 06:08] LABS: ANION GAP 12.1 (7-21); BUN/CREATININE RATIO 22.66 (6.0-28.6); CALCIUM 9.4 mg/dL (8.5-10.1); CREATININE, SERUM 0.75 mg/dL (0.55-1.02); MAGNESIUM 1.9 mg/dL (1.8-2.4); POTASSIUM 4.1 mmol/L (3.5-5.1)
--- NOTE | 2024-10-01 07:15 | NUR ---
REPORT RECEIVED FROM SAP BPC ARCHITECT RN. PATIENT RESTING IN BED AWAKE ON COMPUTER AT THIS TIME. SCD PLACED ON LLE. URINE EMPTIED FROM WALL SUCTION. PATIENT DENIES ANY NEEDS AT THIS TIME. CALL LIGHT WITHIN REACH.
--- NOTE | 2024-10-01 08:30 | NUR ---
PATIENT SITTING ON SIDE OF BED EATING BREAKFAST. VSS. AM MEDICATIONS ADMINSTERED. LUNGS CTA. REPORTS PAIN 05/09. PEDAL PULSES PALPABLE. NO FURTHER NEEDS AT THIS TIME CALL LIGHT WITHIN REACH.
--- NOTE | 2024-10-01 09:15 | NUR ---
ROUNDING ON PATIENT. PATIENT REMAINS SITTING ON SIDE OF BED, USING HER LAPTOP. DENIES ANY NEEDS AT THIS TIME. CALL LIGHT WITHIN REACH.
--- NOTE | 2024-10-01 10:45 | NUR ---
PATIENT ASSISTED BACK INTO BED FROM SITTING ON SIDE OF BED. RLE ELEVATED ON PILLOWS AND ICE APPLIED. WALKING BOOT REMAINS IN PLACE. ICE APPLIED TO RIGHT WRIST. WRIST BRACE REMAINS IN PLACE. PATIENT REQUESTING COFFEE. COFFEE GIVEN. NO FURTHER NEEDS. CALL LIGHT WITHIN REACH.
--- NOTE | 2024-10-01 11:42 | NUR ---
CALLED [facility] TO VERIFY IF INSURANCE HAS AUTHED HER INPT STAY. SPOKE WITH TEOFILO. PATIENT HAS A LARGE DEDUCTIBLE AND COPAY PER DAY IF SHE GOES TO FACILITY. WILL DISCUSS WITH PATIENT AND LET HER DECIDE IF SHE IS ABLE TO COVER THAT COST.
--- NOTE | 2024-10-01 11:54 | NUR ---
RN IN TO ROUND ON PATIENT. CASE MANAGMENT WITH PATIENT AT THIS TIME.
--- NOTE | 2024-10-01 11:57 | NUR ---
SPOKE WITH PATIENT REGARDING DEDUCTIBLE AND COPAY FOR SNF. UNSURE IF SHE IS ABLE TO PAY WHAT WILL BE REQUIRED. STATES SHE HAS A COPAY CARD AND WILL MAKE PHONE CALLS TO SEE IF IT WILL BE COVERED FOR SNF STAY. WILL RETURN TO VERIFY IF SHE IS ABLE TO GO TO SNF OR NOT. DISCUSSED HIRING A PRIVATE CAREGIVER IF NEEDED, IF SHE IS UNALBE TO COVER COSTS. ALSO INFORMED HER COST WILL NOT LIKELY BE REQUIRED IN 1 LUMP SOME THAT FACILITY WILL LIKELY WORK WITH HER ON PAYMENT PLANS.
--- NOTE | 2024-10-01 12:04 | NUR ---
UR CONCURRENT REVIEW: [facility] CRITERIA FOR INPT DC [facility] INPT 09/25/24 @ 1547 ORDER MATCHES REG CLINICAL FAXED FOR AUTH REVIEW DISCHARGE TO SNF, PENDING INSURANCE AUTH AND PATIENT REVIEW OF COPAY/DEDUCTIBLE COST 10/04/24
--- NOTE | 2024-10-01 12:12 | NUR ---
GRAPHIC ENGINEER IN ROOM WITH PATIENT. ASSISTING PATIENT TO BATHROOM. NOON MEDICATIONS ADMINSTERED.
--- NOTE | 2024-10-01 12:25 | NUR ---
PATIENT IN BED AT THIS TIME. MATERIAL CREW SUPERVISOR ASSISTED PATIENT TO BATHROOM USING WHEELCHAIR. MATERIAL CREW SUPERVISOR TOLD PATIENT THAT WE WERE GOING TO TAKE A BREAK FROM USING THE PUREWICK, PATIENT DID NOT LIKE THAT ANSWER BUT WAS WILLING TO TRY. CALL LIGHT WITHIN REACH, NO FURTHER NEEDS AT THIS TIME.
--- NOTE | 2024-10-01 13:18 | NUR ---
PATIENT STATING, SHE " NEEDS TO PEE", HOWVERE SHE DOES NOT WISH TO GET OUT OF BED. REPORTS INCREASED SOB, DIZZYNESS, AND WEAKNESS AT THIS TIME. PATIENT DENIES ANY CHEST PAIN. VSS. PATIENT REPORTS PAIN IS INCREASED 05/09. RN ADMINSTERED PRN PAIN MEDICATION. RN PLACED NEW PUREWICK AT THIS TIME DUE TO PATIENT REPORTING SHE "CAN'T GET OUT OF BED RIGHT NOW." PATIENT RIGHT WRIST AND RLE REMAINS IN BRACE AND BOOT. NO FURTHER NEEDS AT THIS TIME. CALL LIGHT WITHIN REACH.
--- NOTE | 2024-10-01 13:53 | NUR ---
PATIENT SLEEPING. WAKES TO VOICE. STATES SHE HAS NOT YET CALLED TO VERIFY IF SHE CAN FINANCIALLY GO TO SNF. INFORMED HER ANSWER IS NEEDED TODAY. WILL GIVE HER UNTIL 3:15 PM TO MAKE CALLS SHE NEEDS TO MAKE.
--- NOTE | 2024-10-01 14:14 | NUR ---
Patient asked for more ice water. Lights were turned off so they could sleep.
--- NOTE | 2024-10-01 14:56 | NUR ---
PATIENT C/O PAIN. SCHEDULED MEDICATIONS ADMINSTERED. FAMILY AT BEDSIDE. NO FURTHER NEEDS.
--- NOTE | 2024-10-01 16:05 | NUR ---
PATIENT HAS CALLED AND SPOKE WITH [employer] TO VERIFY SHE WILL HAVE MONEY FOR DEDUCTIBLE AND COPAY FOR SNF STAY. SHE IS NO AGREEABLE TO GO TO SNF. [facility] IN [place] CALLED AND UPDATED. WILL RETURN CALL FOR VERIFICATION OF BED.
--- NOTE | 2024-10-01 16:28 | NUR ---
LONG DISCUSSION WITH PATIENT REGARDING DC PLAN AFTER FACILITY REQUIRING 30 DAYS PLUS DEDUCTIBLE UP FRONT FOR ADMISSION TO SNF. SHE IS UNABLE TO DO THAT. STATES SHE HAS WALKER AND COMMODE AT HOME. CONCERNS ABOUT GETTING INSIDE. INFORMED LIFT ASSIST FROM FIRE DEPARTMENT IS OPTION SINCE SHE DOES NOT HAVE A RAMP. WILL SET UP HOME HEALTH PT/OT AND BATH AIDE. HAS A PERSON WHO SHE CAN PAY OUT OF POCKET FOR CAREGIVER ASSISTANCE. PLANS TO DC TO HOME TOMORROW. DR. VALDIVIA UPDATED.
--- NOTE | 2024-10-01 17:00 | NUR ---
PATIENT C/O PAIN PRN GIVEN SEE NOV. BOOT REMAINS IN PLACE TO RLE AND BRACE REMAINS IN PLACE TO RIGHT WRIST. PATIENT SITTING AT SIDE OF BED EATING DINNER. SS INSULIN ADMINISTERED. PATIENT DENIES ANY FURTHER NEEDS AT THIS TIME. CALL LIGHT WITHIN REACH.
--- NOTE | 2024-10-01 19:49 | NUR ---
CALL LIGHT ANSWERED. PT NEEDED TO USE BATHROOM. GAMBLING COUNSELLOR 1PA WITH WHEELCHAIR TO [facility]. PT VOIDED AND ASSISTED BACK TO BED. PT GIVEN ICE PACK, COFFEE, AND FRESH ICE WATER UPON REQUEST. PT STATES NO FURTHER NEEDS AT THIS TIME. CALL LIGHT WITHIN REACH.
--- NOTE | 2024-10-01 19:59 | NUR ---
Pt c/o cellulitis L breast. pinkish colored area lowe breast area, slightly firmer than on initial assessment several days ago done by this RN. no drainage. Dr Herzog notified via phone, no new orders. "Will reassess in am"
--- NOTE | 2024-10-01 20:06 | NUR ---
COVER SEAMER OBTAINED VITALS, I&O, AND BLOOD SUGAR. RN NOTIFED OF BLOOD SUGAR. PT STATES NO FURTHER NEEDS AT THIS TIME. CALL LIGHT WITHIN REACH.
--- NOTE | 2024-10-01 21:20 | NUR ---
CALL LIGHT ANSWERED. PT NEEDED TO USE BATHROOM. SOLAR DEVELOPMENT ENGINEER ASSISTED PT WITH WHEELCHAIR TO BATHROOM. PT STATED SHE NEEDED NEW ATTENDS BECAUSE SHE ALREADY WENT. SOLAR DEVELOPMENT ENGINEER ASSISTED PT WITH CLEAN ATTENDS. PT THEN ASSISTED BACK TO BED. PT STATES NO FURTHER NEEDS AT THIS TIME. CALL LIGHT WITHIN REACH.
--- NOTE | 2024-10-02 00:14 | NUR ---
BATHROOM CALL LIGHT ANSWERED. PT ASSISTED BACK INTO WHEEL CHAIR AND BACK TO BED. PT STATES NO FURTHER NEEDS AT THIS TIME. CALL LIGHT WITHIN REACH.
--- NOTE | 2024-10-02 00:57 | NUR ---
aWAKE, VERY EMOTIONAL, CRYING, CONCERNED ABOUT L BREAST, R ANKLE AND L KNEE, SCREAMING, NOT RECEPTIVE. MY L KNEE IS BROKE,. XRAY DONE A FEW DAYS AGO AND IT SHOWED NO COMPLIATION. EDEMA TO L ANKLE AND FOOT DEPENDENT POSITION WHEN SHE IS PLAYING WITH COMPUTER. R WRIST BRACE IN PLACE, EDEMA NO PROBLEMS. RANKLE COVERED WITH TARAN WRAP, ORTHO BOOT IN PLACE, EDEMA WORSE AT ANKLES AND DIMISHED AT FOOT. ELEVATED, ROTATING ICE TO AREA. CONTINUES TO NOT FOLLOW TOE-TOUCH WEIGHT BEARING INSTRUCTIONS. ANGRY TONE OF VOICE, NOT RECEPTIVE TO REASSURANCE
--- NOTE | 2024-10-02 01:09 | NUR ---
CALL LIGHT ANSWERED. PT STATED THAT SHE NEEDED TO USE THE BATHROOM BU TSHE FELT TO PAINFUL TO GET UP. DRILLING ASSISTANT APPROVED PUREWICK MILK BOTTLER PLACED PUREWICK. PRIMARY RN NOTIFED OF PUREWICK AND OF PT PAIN COMPLAINTS. PT CALL LIGHT WITHIN REACH.
--- NOTE | 2024-10-02 02:35 | NUR ---
Pt used call light, awake, no c/o pain, calmer. Purewick in place, was incontinent of large amount of urine, Up to BRP, 1PA/w/c. voided, does own pericare. Back to bed, tolerated well. Has requiere much praise this shift. encouraged to try toe touch but she prefers pivot transfer R orhto boot in place and R wrist in place, edema to R hand-R ankle-foot and L ankle/foot improved, has been elevated most of this shift.Had pure wick in place
[2024-10-02 05:20] VITALS: BP 121/66
[2024-10-02 06:21] VITALS: BP 121/66
--- NOTE | 2024-10-02 06:36 | NUR ---
awake, c/o 910 R wrist, R leg and L knee pain, medicated with dilaudid 4mg po
--- NOTE | 2024-10-02 07:36 | NUR ---
REPORT RECEIVED FROM DIRECTOR WEIGHTS AND MEASURES RN. PATIENT RESTING IN BED AWAKE ON COMPUTER. BOOT IN PLACE TO RLE AND RIGHT WRIST BRACE IN PLACE TO RIGHT WRIST. SCD IN PLACE TO LLE. DENIES ANY NEEDS AT THIS TIME. CALL LIGHT WITHIN REACH.
--- NOTE | 2024-10-02 08:45 | NUR ---
PATIENT ASSISTED TO BATHROOM. PATIENT REFUSING TO USE WALKER TO TRANSFER. PATENT VOID IN TOILET IN BATHROOM. PATIENT VSS. AM MEDICATION ADMINSTERED. LUNGS CTA. BOOT IN PLACE TO RLE AND BRACE IN PLACE TO RIGHT WRIST. PATIENT WITH RLE ELEVATED. DRESSINGS TO RLE AND RIGHT WRIST REMAIN CDI. PATIENT WITH NO FURTHER NEEDS AT THIS TIME. CALL LIGHT WITHIN REACH.
[2024-10-02 09:08] VITALS: BP 146/84
--- NOTE | 2024-10-02 09:09 | NUR ---
IN TO SPEAK WITH PATIENT. SITTING ON EDGE OF BED. DISCUSSED DC TO HOME TODAY. SHE HAS FAMILY THAT MAY POTENTIALLY BE ABLE TO PICK HER UP VERSUS [facility] RIDE HOME. STATES SHE WILL CALL FAMILY. HAS A WHEELCHAIR, WALKER, BEDSIDE COMMODE AT HOME. DOES NOT HAVE A RAMP TO GET INSIDE, SO SHE PLANS ON CALLING [facility] FOR LIFT ASSIST WHEN SHE GETS HOME SO SHE CAN GET INTO HER HOUSE. HOME HEALTH REFERRAL FAXED TO [facility].
--- NOTE | 2024-10-02 09:10 | NUR ---
MD IN ROOM WITH PATIENT AT THIS TIME.
--- NOTE | 2024-10-02 10:40 | NUR ---
PHONE NUMBER FOR KRYSTIN JIMÉNEZ PROVIDED TO HELP WITH LIFT ASSIST INTO HER HOME WHEN SHE ARRIVES. CALLED HER MOTHER AND ASK THAT SHE COMES TO PICK HER UP AROUND 12:30 TODAY TO TRANSPORT HER HOME. WILL CALL FOR ASSIST AFTER SHE GETS HOME TO GET INSIDE.
--- NOTE | 2024-10-02 11:30 | NUR ---
CALL LIGHT ANSWERED. REQUESTING PRN FOR PAIN. PRN ADMINSTERED. PATIENT SITTING ON SIDE OF BED WITH RLE ELEVATED ON BED AND LLE DANGLING. FRESH ICE WATER GIVEN. PATIENT WITH NO FURTHER NEEDS AT THIS TIME. CALL LIGHT WITHIN REACH.
--- NOTE | 2024-10-02 13:20 | NUR ---
PATIENT DISCHARGED VIA W/C. PATIENT DISCHARGED WITH ALL PERSONAL BELONGINGS AND MEDICATIONS THAT WERE IN THE KITS LIST INCLUDING MONJARO AND BP MEDICATION. PATIENT GIVEN DISCAHRGE INSTRUCTIONS AND DISCHARGE PACKET. PATIENT VERBALIZED UNDERSTANDING OF DISCHARGE INSTRUCTIONS.
[2024-10-04] MEDS ORDERED: TIRZEPATIDE 7.5 MG/0.5 ML SUB-Q SCH (09:00)
== END 2024-10-02 13:15 | disposition home health service (06) | DRG 493 ==
LOC: DS 06:32 → MS 13:30 → DS 15:47 → MS 10-02 13:15
PROVIDERS: Student in an Organized Health Care Education/Training Program; ADMIT Specialist; ATTEND Specialist
PROC: 0PSH04Z Reposition Right Radius with Internal Fixation Device, Open Approach (ICD-10-PCS; 2024-09-25)
PROC: 0QSJ04Z Reposition Right Fibula with Internal Fixation Device, Open Approach (ICD-10-PCS; principal; 2024-09-25 08:30)
PROC: 0QSG04Z Reposition Right Tibia with Internal Fixation Device, Open Approach (ICD-10-PCS; 2024-09-25 08:30)
DX: S82.841A Displaced bimalleolar fracture of right lower leg, initial encounter for closed fracture (principal); L03.115 Cellulitis of right lower limb; S52.571A Other intraarticular fracture of lower end of right radius, initial encounter for closed fracture; N39.0 Urinary tract infection, site not specified; S82.54XA Nondisplaced fracture of medial malleolus of right tibia, initial encounter for closed fracture; I10 Essential (primary) hypertension; E11.9 Type 2 diabetes mellitus without complications; E78.5 Hyperlipidemia, unspecified; M25.561 Pain in right knee; M25.562 Pain in left knee; K21.9 Gastro-esophageal reflux disease without esophagitis; C50.919 Malignant neoplasm of unspecified site of unspecified female breast; E66.9 Obesity, unspecified; W18.11XA Fall from or off toilet without subsequent striking against object, initial encounter; K59.00 Constipation, unspecified; R53.81 Other malaise; R07.89 Other chest pain; E83.42 Hypomagnesemia; Z91.09 Other allergy status, other than to drugs and biological substances; Z79.82 Long term (current) use of aspirin; Z79.899 Other long term (current) drug therapy; Z79.84 Long term (current) use of oral hypoglycemic drugs; Z79.4 Long term (current) use of insulin; Z79.891 Long term (current) use of opiate analgesic; Z71.6 Tobacco abuse counseling; Z79.890 Hormone replacement therapy
CPT/HCPCS: 01480; 36415; 72100; 73100; 73560; 73600; 80048; 80053; 81003; 83735; 84484; 85025; 93005; 93010; 94762; 97110; 97162; 97166; 97530; 97535; A9270; C1713; J0690; J1100; J1171; J1815; J2003; J2250; J2405; J2704; J2795; J3010; J7121

== ENCOUNTER 2025-08-05 09:14 | Emergency (ER) | payer OTHER ==
[~2025-08-05] VITALS: Ht 170.2 cm; Wt 142.9 kg
[~2025-08-05 09:14] MED LIST changes: +ATORVASTATIN CA80 MG PO; +ESOMEPRAZOLE MA40 MG PO; +HYDROMORPHONE HC4 MG PO; +INDAPAMIDE2.5 MG PO; -LACTATED RINGER'S 1,000 ML IV SCH; +METFORMIN HCL500 M1 PO; +PIOGLITAZONE HC15 MG PO; +POTASSIUM CHLO20 ME1 PO; +REPAGLINIDE2 MG PO; +VERAPAMIL ER P300 MG PO
[2025-08-05] MEDS ORDERED: KETOROLAC TROMETHAMINE 30 MG/ML VIAL IV ONE (10:15)
[2025-08-05] MEDS ORDERED: SODIUM CHLORIDE 0.9% 1,000 ML IV ONE (10:15)
[2025-08-05 10:17] LABS: BLOOD/HGB, URINE SMALL (Negative); KETONE, URINE NEGATIVE (Negative); LEUK ESTERASE, URINE MODERATE (negative); NITRITE, URINE NEGATIVE (negative)
[2025-08-05 10:20] LABS: BASOPHILS 1.1 % (0.1-1.2); EOSINOPHILS 4.7 % (0.7-5.8); LYMPHOCYTES 27.4 % (19.3-51.7); MCH 29.2 PG (25.6-32.2); MCHC 32.8 g/dL (32.2-35.5); MCV 89.1 fL (79.4-94.8); MONOCYTES 7.7 % (4.7-12.5); NEUTROPHILS 58.9 % (34.0-71.1); RBC 4.11 M/uL (3.93-5.22)
[2025-08-05 10:25] LABS: BACTERIA, URINE 3+ /hpf (negative); CASTS, URINE NONE SEEN \\lpf; CRYSTALS, URINE NONE SEEN (0-1+); EPITHELIAL CELLS, URINE SQUAMOUS 1+ /lpf (0-1+); REFLEX CULTURE, URINE Yes (No)
[2025-08-05 10:40] LABS: ALT (SGPT) 46.0 U/L (14-59); AST (SGOT) 18.0 U/L (15-37); GLOMERULAR FILTRATION RATE,EST 82.0 mL/min (>60); PROTEIN, TOTAL 6.8 g/dL (6.4-8.2); UREA NITROGEN 12.0 mg/dL (7-18)
[2025-08-05] MEDS ORDERED: HYDROmorphone HCL 1 MG/ML SYR IV PRN (13:00)
[2025-08-05] MEDS ORDERED: HYDROCODONE/ACETA 7.5/325 TAB PO ONE (14:30)
[2025-08-05] MEDS ORDERED: ONDANSETRON ODT8 MG PO (14:52)
[2025-08-05] MEDS ORDERED: CEFDINIR300 MG PO (14:52)
[2025-08-05] MEDS ORDERED: IBUPROFEN 800 MG TAB PO ONE (15:15)
[2025-08-05 16:04] VITALS: BP 181/100
== END 2025-08-05 16:04 | disposition home or self-care (01) ==
LOC: ED 09:14
PROVIDERS: Emergency Medicine
DX: N13.6 Pyonephrosis (principal); Z87.442 Personal history of urinary calculi; I48.91 Unspecified atrial fibrillation; E11.9 Type 2 diabetes mellitus without complications; Z79.2 Long term (current) use of antibiotics; Z79.899 Other long term (current) drug therapy; Z79.84 Long term (current) use of oral hypoglycemic drugs
CPT/HCPCS: 36415; 74177; 80053; 81001; 85025; 87077; 87088; 96365; 96375; 96376; 99284-25; A9270; J0696; J1171; J1885; J2405; J7030; Q9967